=== PATIENT | male | born 1985 ===

== ENCOUNTER 2018-10-08 14:06 | Inpatient (IN) ==
[2018-10-08] MEDS ORDERED: HYDROmorphone INJ 1 MG/ML SYRINGE IV STA (14:19)
[2018-10-08] MEDS ORDERED: ONDANSETRON INJ 2 MG/ML 2 ML VIAL IV STA (14:19)
[2018-10-08] MEDS ORDERED: SODIUM CHLORIDE 0.9% 1000ML 1,000 ML IV ONE (14:19)
[2018-10-08 15:14] LABS: Hemoglobin 12.6 g/dL (14.0-18.0); Mean Corpuscular Hgb Conc 34.1 g/dL (32-36); Mean Corpuscular Volume 78.7 fL (80-100); Mean Platelet Volume 10.1 fL (7.4-10.4); Platelet Count 412 K/uL (130-400); RDW Coefficient of Variation 12.5 % (11.5-14.5); White Blood Count 10.86 K/uL (4.8-10.8)
[2018-10-08 15:30] LABS: Albumin Level 3.5 gm/dl (3.4-5.0); BUN Creatinine Ratio 22.9 (10-20); Bilirubin Direct 0.1 mg/dl (0-0.2); Calcium 8.8 mg/dl (8.5-10.1); Creatinine Clr Calc Pharmacy 129.1 ml/min; Est GFR (African American) 142.6; Potassium 2.9 mmol/L (3.5-5.1)
[2018-10-08 15:33] LABS: Basophils # (auto) 0.02 K/uL (0-0.2); Basophils % (auto) 0.2 %; Bilirubin,Total 0.6 mg/dl (0.2-1); Hypochromasia Present; Immature Granulocytes # (auto) 0.01 K/uL (0.00-0.02); Immature Granulocytes % (auto) 0.1 %; Lymphocytes # (auto) 0.57 K/uL (1.2-3.4); Lymphocytes % (auto) 5.2 %; Monocytes # (auto) 0.94 K/uL (0.11-0.59); Monocytes % (auto) 8.7 %; Neutrophils # (auto) 9.32 K/uL (1.4-6.5); Neutrophils % (auto) 85.8 %; Total Protein 7.4 gm/dl (6.4-8.2)
[2018-10-08] MEDS ORDERED: POTASSIUM CHLORIDE 10 MEQ TABCR PO STA (16:34)
[2018-10-08] MEDS ORDERED: IOVERSOL 100ml IV PRN (17:01)
--- NOTE | 2018-10-08 17:28 | CT Scan Report ---
CT OF THE ABDOMEN AND PELVIS WITH CONTRAST CLINICAL HISTORY: Abdominal pain. Diarrhea, nausea and vomiting. COMPARISON STUDY: CT of the abdomen and pelvis January 15, 2018. TECHNIQUE: Following IV administration of 94 mL of Optiray-320, axial images of the abdomen and pelvi s were obtained from the lung bases to the proximal femurs. Images were reviewed in the axial, sagitt al, and coronal planes. IV contrast was administered without complication. Automated exposure contro l was utilized for the study. A dose lowering technique was utilized adhering to the principles of A KINSEY. CT DOSE: 362.80 mGycm FINDINGS: Relative lucency/oligemia visualized portions of the left lower lobe is noted. No pneumatos is, free air or portal venous gas is present. Mild biliary ductal dilatation is unchanged and likely related to prior cholecystectomy. There is an ill-defined 2.2 cm hypodensity within segment 4 of the liver. The spleen, adrenal glands and kidneys are normal. There is no pancreatic ductal dilatation. T here is no hydronephrosis. The nephrograms are symmetric. The stomach and proximal to mid small bowel are distended and fluid-filled. Transition point is likely within the right upper quadrant. Distal s mall bowel is markedly decompressed. Soft tissue thickening within the right upper quadrant with calc ification is noted. There is also an ill-defined 3.4 cm mesenteric lesion within the right mid abdome n shown on image 212 of [id number]. There is also apparent nodularity within the pelvis anterior to the rect um which measures 2.4 cm. There is trace ascites. Major vasculature is patent. There are no suspiciou s osseous lesions. There is hyperdense material within the appendix without evidence for acute append icitis. Mild loss of height of the superior endplate of L1 is noted. Postsurgical findings within the proximal transverse colon are noted. IMPRESSION: 1. Findings consistent with a high-grade small bowel obstruction with transition point likely within the right upper quadrant. Adjacent soft tissue thickening and associated hyperdense material which ma y reflect calcification or surgical material. This may account for the bowel obstruction and raises t he possibility of malignancy. Correlation with history of malignancy is recommended given possible pe ritoneal carcinomatosis. Trace ascites. No pneumatosis, free air or portal venous gas. Placement of a nasogastric tube might be considered as well surgical consultation. 2. Ill-defined soft tissue anterior to the rectum which is worrisome for a neoplastic process such as peritoneal carcinomatosis. 3.4 cm ileocolic mass which may reflect jose metastasis. Indeterminate n ew 2.2 cm hepatic lesion. A PET/CT may be of benefit in further evaluation of these findings. Electronically signed by: Chris Ayers M.D. 10/08/2018 5:26 PM
[2018-10-08] MEDS ORDERED: POTASSIUM CHLORIDE / WTR 10 MEQ/100 ML PLCT IV STA (18:29)
[2018-10-08] MEDS ORDERED: MoRPHine SULFATE 2 MG/ML CARP IV PRN (18:36)
[2018-10-08] MEDS: POTASSIUM CHLORIDE / WTR 10 MEQ/100 ML PLCT IV SCH ×5 (19:01→23:53)
--- NOTE | 2018-10-08 19:51 | History & Physical Report ---
Date of Service October 08, 2018 Assessment & Plan (1) SBO (small bowel obstruction): (2) Colon cancer: (3) Peritoneal metastases: -admit to tele -patient presenting from home with abdominal pain, nausea, and diarrhea -developed vomiting in the ED -CT abd/pelvis showing high-grade small bowel obstruction with transition point likely within the right upper quadrant -obstruction likely due to underlying colon cancer with peritoneal mets -place NG tube to low intermittent suction -noted normal lactic acid -general surgery consult, case discussed with Dr. Hernandez -continue supportive care with IVF, PRN antiemetics and pain medicines -of note, patient follows with Dr. Josué Montalvo last chemo (Opdivo / Yervoy) on 10/06 (4) Hypokalemia: -replace, follow electrolytes (5) DVT prophylaxis: -SCDs in the event patient needs invasive procedure History of Present Illness Chief Complaint: abdominal pain, nausea Primary Care Provider: Natalie Payne 33 year old male with history of colon cancer with peritoneal metastases who presents to the ED with nausea and worsening abdominal pain. Patient reports he has chronic right sided abdominal pain which has been worsening over the past several weeks. He notes struggling with constipation over the past week. He has taken colace, Miralax, and magnesium citrate. He developed diarrhea today. No bright red bleeding per rectume or dark tarry stools. He reports minimal flatus passing. He reports last normal bowel movement was a couple of weeks ago. He developed vomiting while in the ED. No coffee ground emesis or hematemesis. He denies chest pain and shortness of breath. No lightheadedness, dizziness, diaphoresis, or syncopal events. He denies fever and chills. No urinary symptoms. In the ED, CT abd/pelvis shows a high-grade small bowel obstruction with transition point likely within the right upper quadrant. Labs show K+ 2.9. Patient was given IVF, K+ replacement, IV Zofran, and IV Dilaudid. Allergies Allergy/AdvReac Type Severity Reaction Status Date / Time asparagus Allergy Intermediate "small Verified 10/08/18 15:36 bumps on skin" Home Medications Home Medications Medication Instructions Recorded Confirmed Type ascorbic acid (vitamin C) [Vitamin 500 mg PO DAILY 10/08/18 10/08/18 History C] digestive enzymes 1 cap PO DAILY 10/08/18 10/08/18 History magnesium sulfate 100 mg PO DAILY 10/08/18 10/08/18 History melatonin 20 mg PO HS 10/08/18 10/08/18 History morphine [MS Contin] 30 mg PO BID 10/08/18 10/08/18 History multivitamin 1 tab PO DAILY 10/08/18 10/08/18 History ondansetron 8 mg PO TID PRN 10/08/18 10/08/18 History oxycodone-acetaminophen [Percocet] 1 tab PO Q4H PRN 10/08/18 10/08/18 History prochlorperazine maleate 10 mg PO Q6H PRN 10/08/18 10/08/18 History Past Med/Surg History Medical History Peritoneal metastases (Chronic) Colon cancer (Chronic) Surgical History S/P partial colectomy (Chronic) partial transverse colectomy History of cholecystectomy (Chronic) Family History Grandfather Colon cancer Uncle Colon cancer Social History marital status: Single Current Living Situation: Spouse and Family Feels Safe at Home: Yes Safety Concerns: Feels Safe At This Time Smoking Status: Never smoker Hx Alcohol Use: No Hx Substance Use: No Beliefs That Will Affect Care: None Preferred Language: Armenian Communication Ability: Effective Senior Administrative Assistant Required: No Review of Systems ROS per HPI, all other systems reviewed and negative Physical Exam 2 Vital Signs (Past 24 Hours): Last Vital Signs Temp 36.7 C 10/08/18 14:10 Pulse 119 H 10/08/18 17:43 Resp 20 10/08/18 17:43 BP 132/90 10/08/18 17:43 Pulse Ox 99 10/08/18 17:43 Constitutional: + thin vitals as above Eyes: PERRL, conjunctivae normal, anicteric sclerae ENMT: external ear and nose normal, oropharynx normal Respiratory: normal respiratory effort, lungs clear to auscultation Cardiovascular: Rate/Rhythm: regular rhythm and + tachycardic Vessels: normal peripheral pulses Extremities: no edema Gastrointestinal (Abdomen): Inspection/Auscultation: abdomen not distended ( flat) and + abnormal bowel sounds (minimal) Percussion/Palpation: + abdomen tender (right abdominal ); no hepatosplenomegaly Musculoskeletal: no cyanosis or clubbing, extremities motor strength 5/5 Skin: no rashes, warm and dry Neurologic: PERRL, EOMI, accommodation nl, no face palsy, no dysarthria Psychiatric: A+Ox3, euthymic affect Results & Data Laboratory Results Laboratory Last Values WBC 10.86 K/uL (4.8-10.8) H 10/08/18 14:50 RBC 4.70 M/uL (4.7-6.1) 10/08/18 14:50 Hgb 12.6 g/dL (14.0-18.0) L 10/08/18 14:50 Hct 37.0 % (42-52) L 10/08/18 14:50 MCV 78.7 fL (80-100) L 10/08/18 14:50 MCH 26.8 pg (25-34) 10/08/18 14:50 MCHC 34.1 g/dL (32-36) 10/08/18 14:50 RDW Std Deviation 36.0 fL (36.4-46.3) L 10/08/18 14:50 RDW Coeff of Doug 12.5 % (11.5-14.5) 10/08/18 14:50 Plt Count 412 K/uL (130-400) H 10/08/18 14:50 MPV 10.1 fL (7.4-10.4) 10/08/18 14:50 Immature Gran % (Auto) 0.1 % 10/08/18 14:50 Neut % (Auto) 85.8 % 10/08/18 14:50 Lymph % (Auto) 5.2 % 10/08/18 14:50 Winkler % (Auto) 8.7 % 10/08/18 14:50 Eos % (Auto) 0.0 % 10/08/18 14:50 Baso % (Auto) 0.2 % 10/08/18 14:50 Immature Gran # (Auto) 0.01 K/uL (0.00-0.02) 10/08/18 14:50 Neut # (Auto) 9.32 K/uL (1.4-6.5) H 10/08/18 14:50 Lymph # (Auto) 0.57 K/uL (1.2-3.4) L 10/08/18 14:50 Winkler # (Auto) 0.94 K/uL (0.11-0.59) H 10/08/18 14:50 Eos # (Auto) 0.00 K/uL (0-0.5) 10/08/18 14:50 Baso # (Auto) 0.02 K/uL (0-0.2) 10/08/18 14:50 Hypochromasia Present 10/08/18 14:50 Sodium 132 mmol/L (136-145) L 10/08/18 14:50 Potassium 2.9 mmol/L (3.5-5.1) L 10/08/18 14:50 Chloride 93 mmol/L (98-107) L 10/08/18 14:50 Carbon Dioxide 24 mmol/L (21-32) 10/08/18 14:50 Anion Gap 15.0 (3-11) H 10/08/18 14:50 BUN 16 mg/dl (7-18) 10/08/18 14:50 Creatinine 0.69 mg/dl (0.6-1.4) 10/08/18 14:50 Est Cr Clr Drug Dosing 129.1 ml/min 10/08/18 14:50 Est GFR ( Amer) 142.6 10/08/18 14:50 Est GFR (Non-Af Amer) 123.0 10/08/18 14:50 BUN/Creatinine Ratio 22.9 (10-20) H 10/08/18 14:50 Glucose 160 mg/dl (70-99) H 10/08/18 14:50 Lactate 1.5 mmol/L (0.4-2.0) 10/08/18 14:55 Calcium 8.8 mg/dl (8.5-10.1) 10/08/18 14:50 Magnesium 1.8 mg/dl (1.8-2.4) 10/08/18 14:50 Total Bilirubin 0.6 mg/dl (0.2-1) 10/08/18 14:50 Direct Bilirubin 0.1 mg/dl (0-0.2) 10/08/18 14:50 AST 35 U/L (15-37) 10/08/18 14:50 ALT 57 U/L (12-78) 10/08/18 14:50 Alkaline Phosphatase 198 U/L (45-117) H 10/08/18 14:50 Total Protein 7.4 gm/dl (6.4-8.2) 10/08/18 14:50 Albumin 3.5 gm/dl (3.4-5.0) 10/08/18 14:50 Lipase 184 U/L (73-393) 10/08/18 14:[address] ABD/PELVIS IMPRESSION: 1. Findings consistent with a high-grade small bowel obstruction with transition point likely within the right upper quadrant. Adjacent soft tissue thickening and associated hyperdense material which may reflect calcification or surgical material. This may account for the bowel obstruction and raises the possibility of malignancy. Correlation with history of malignancy is recommended given possible peritoneal carcinomatosis. Trace ascites. No pneumatosis, free air or portal venous gas. Placement of a nasogastric tube might be considered as well surgical consultation. 2. Ill-defined soft tissue anterior to the rectum which is worrisome for a neoplastic process such as peritoneal carcinomatosis. 3.4 cm ileocolic mass which may reflect jose metastasis. Indeterminate new 2.2 cm hepatic lesion. A PET/CT may be of benefit in further evaluation of these findings. Code Status & VTE Plan VTE Prophylaxis Plan VTE Prophylaxis will be ordered: Yes Supervising Physician Co-Signing Physician Notes ATTENDING ADDENDUM : this is a 33 yo unfortunate male with stage 4 /metastatic colon ca /peritoneal carcinomatosis presented with abdominal pain , nausea /vomiting CT abdomen pelvis shows high grade small bowel obstruction with transition point at Rt upper quadrant SBO secondary to malignancy bowel rest /NPO /IVF fluid NG suction if pt develops nausea /vomiting Surgery consult requested pt will be evaluated by surgery given the complicated nature of bowel obstruction along with intra abdominal malignancy -if surgery is indicated -pt will need to be [facility] with [facility] Oncology service Electrolyte derangement: Hypokalemia : K 2.9 due to GI loss had diarrhea past few weeks , presentation with SBO ordred IV K rider ( given 20 meq in ER + additional 40 meq ordered =60 meq) maintence fluid NSS +20 Kcl @ 150 check Mg and phos level DVT PROPHYLAXIS moderate to high risk /given metastatic malignancy SCD and Teds pharmacological anticoagulation avoided -possible need for abdominal surgery FULL CODE Pamela Prado MD
--- NOTE | 2018-10-08 19:56 | Emergency Department Note ---
Entered by Megan Caldwell acting as a scribe for Addison Espinoza History of Present Illness General Chief complaint: GI Assessment Stated complaint: NAUSEA, VOMITING, ABD PAIN- HX BOWEL OBSTRUCTION Time Seen by Provider: 10/08/18 14:15 Source: patient History of Present Illness Onset (ago): hour(s) (earlier today) Location: abdomen Pain Consistency: + other (worsening ) Maximum Pain Intensity: 6 Quality: + other (GI assessment) Associated symptoms: + other (Positive abdominal pain, diarrhea. Negative fevers. ) The patient is a 33 year old male who presents to the Emergency Room for a GI assessment. 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 He notes his nausea is worsening and he has associated abdominal pain located in the right upper quadrant. He denies any bilious vomiting, coffee-ground emesis, or hematemesis. Pt denies any fevers. Patient is being treated by Dr. Montalvo [facility]. 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 Pt is currently not on blood thinners. Home Medications Home Medications Medication Instructions Recorded Confirmed Type ascorbic acid (vitamin C) [Vitamin 500 mg PO DAILY 10/08/18 10/08/18 History C] digestive enzymes 1 cap PO DAILY 10/08/18 10/08/18 History magnesium sulfate 100 mg PO DAILY 10/08/18 10/08/18 History melatonin 20 mg PO HS 10/08/18 10/08/18 History morphine [MS Contin] 30 mg PO BID 10/08/18 10/08/18 History multivitamin 1 tab PO DAILY 10/08/18 10/08/18 History ondansetron 8 mg PO TID PRN 10/08/18 10/08/18 History oxycodone-acetaminophen [Percocet] 1 tab PO Q4H PRN 10/08/18 10/08/18 History prochlorperazine maleate 10 mg PO Q6H PRN 10/08/18 10/08/18 History Allergies Allergy/AdvReac Type Severity Reaction Status Date / Time asparagus Allergy Intermediate "small Verified 10/08/18 15:36 bumps on skin" Past Med/Surg History Medical History SBO (small bowel obstruction) (Acute) Colon cancer (Chronic) Family History Other Family history non-contributory Social History marital status: Single Current Living Situation: Alone Feels Safe at Home: Yes Smoking Status: Never smoker Review of Systems See HPI for pertinent positives & negatives. and A total of 10 systems reviewed and were otherwise negative Physical Exam Vital Signs Vital Signs - 24 hr 10/08/18 14:10 10/08/18 17:43 10/08/18 19:52 Temperature 36.7 C Temperature Source Oral Sepsis Recent Fever Within 48 Hours No Sepsis New/Unexplained Change in Mental Status No Sepsis Action Taken by Nursing No Action Required Pulse Rate 144 H Pulse Rate [Right Finger] 119 H 130 H Pulse Rhythm [Right Finger] Regular Pulse Strength [Right Finger] Normal Respiratory Rate 22 20 20 Respiratory Effort / Characteristics Non-Labored Spontaneous Respiratory Depth Normal Respiratory Pattern Regular Blood Pressure 113/72 Blood Pressure [Right Arm] 132/90 123/77 Blood Pressure Mean 85 Blood Pressure Mean [Right Arm] 104 92 Blood Pressure Position [Right Arm] Lying Pulse Oximetry 99 99 99 Oxygen Delivery Method Room Air Room Air Room Air GENERAL: He is oriented to person, place, and time. He appears well-developed and well-nourished. He appears distressed. ____ HENT: Exam performed. Head: Normocephalic and atraumatic. Right Ear: External ear normal. No mastoid tenderness. Left Ear: External ear normal. No mastoid tenderness. Mouth/Throat: The oropharynx is clear and moist. No trismus in the jaw. No dental abscesses or uvula swelling. No oropharyngeal exudate or tonsillar abscesses. ____ EYES: Conjunctivae and EOM are normal. Pupils are equal, round, and reactive to light. Right eye exhibits no discharge. Left eye exhibits no discharge. No scleral icterus. ____ NECK: Normal range of motion. Neck supple. No JVD present. No spinous process tenderness present. No carotid bruit present. No rigidity. No tracheal deviation and normal range of motion present. No Brudzinski's sign and no Kernig 's sign noted. ____ CV: Tachycardic rate, regular rhythm, normal heart sounds and intact distal pulses. There is no peripheral edema. Palpable radial pulses bue. ____ PULM/CHEST: Effort normal and breath sounds normal. No respiratory distress. No stridor. He has no wheezes. He has no rales. Chest Wall: He exhibits no tenderness. ____ ABD: The abdomen is soft. Bowel sounds are normal. He has no distension. No mass is present. Diffse pain on palpation of the abdomen. There is no rebound, no guarding, no Goodman's sign and no tenderness at McBurney's point. Rovsig negative MUSC/SKEL: Normal range of motion. There is no peripheral edema, tenderness or deformity. LYMPH: No cervical adenopathy. ____ NEURO: He is alert and oriented to person, place, and time. He has normal strength. No cranial nerve deficit or sensory deficit. Coordination and gait normal. GCS eye subscore is 4. GCS verbal subscore is 5. GCS motor subscore is 6. cerbellar tests wnl. ____ SKIN: Skin is warm and dry. He is not diaphoretic. ____Skin is pale. PSYCH: He has a normal mood and affect. His behavior is normal. Judgment and thought content normal. ____ Course 1416: Past medical records reviewed. The patient was evaluated in room B7, and a complete history and physical examination were performed. 1619: He states his abdominal pain status post dilaudid is significantly improved. 1745: Vital signs stable. Potassium is low at 2.9. Replaced in the emergency department. CT of the abdomen shows high-grade small bowel obstruction. I reviewed the patient's case with CORAL Leyva [facility] Hospitalist. The patient will be further evaluated by Dr. Prado [facility] Hospitalist. Natalya almanzar as that general surgery be on consult when he is admitted to their service. 1754: I reviewed the patient's case with Dr. Hernandez, General Surgery agreed to be on consult. Consultations Consultation #1: I reviewed the patient's case with CORAL Leyva [facility] Hospitalist. The patient will be further evaluated by Dr. Prado [facility] Hospitalist. Time: 17:45 Consultation #2: I reviewed the patient's case with Dr. Hernandez, General Surgery agreed to be on consult. Time: 17:54 Administered Medications Potassium Chloride (K Odell / Wtr) 10 meq in 100 mls @ 100 mls/hr IV Q1H GURPREET Stop: 10/08/18 19:59 Last Admin: 10/08/18 19:40 Dose: 100 mls/hr Infusion: 10/08/18 19:40 Dose: 100 mls/hr Admin: 10/08/18 19:01 Dose: 100 mls/hr Ioversol (Optiray 320 100ml) 94 ml IV ONCE PRN PRN Reason: Interaction Checking Stop: 10/12/18 17:00 Last Admin: 10/08/18 17:01 Dose: 94 ml Morphine Sulfate (Morphine Sulfate) 2 mg IV Q3H PRN PRN Reason: Pain Stop: 10/22/18 18:35 Last Admin: 10/08/18 19:35 Dose: 2 mg Discontinued Medications Hydromorphone HCl (Dilaudid) 1 mg IV NOW STA Stop: 10/08/18 14:20 Last Admin: 10/08/18 14:55 Dose: 1 mg Sodium Chloride (Nss 1000ml) 1,000 mls @ 999 mls/hr IV .Q1H1M ONE Stop: 10/08/18 15:19 Last Infusion: 10/08/18 16:24 Dose: 0 mls/hr Admin: 10/08/18 14:55 Dose: 999 mls/hr Ondansetron HCl (Zofran) 4 mg IV NOW STA Stop: 10/08/18 14:20 Last Admin: 10/08/18 14:50 Dose: 4 mg Potassium Chloride (Klor-Con M10) 40 meq PO NOW STA Stop: 10/08/18 16:35 Last Admin: 10/08/18 17:17 Dose: 40 meq Medical Decision Making Medical Records Attestation: I reviewed the patient's medical records. Home Medications Current Medication List: was personally reviewed by me Laboratory Data Attestation: I reviewed the patient's lab results. Result diagrams: 10/08/18 14:50 10/08/18 14:50 Lab Results 10/08/18 10/08/18 10/08/18 Range/Units 14:50 14:50 14:50 WBC 10.86 H (4.8-10.8) K/uL RBC 4.70 (4.7-6.1) M/uL Hgb 12.6 L (14.0-18.0) g/dL Hct 37.0 L (42-52) % MCV 78.7 L (80-100) fL MCH 26.8 (25-34) pg MCHC 34.1 (32-36) g/dL RDW Std Deviation 36.0 L (36.4-46.3) fL RDW Coeff of Doug 12.5 (11.5-14.5) % Plt Count 412 H (130-400) K/uL MPV 10.1 (7.4-10.4) fL Immature Gran % (Auto) 0.1 % Neut % (Auto) 85.8 % Lymph % (Auto) 5.2 % Moody % (Auto) 8.7 % Eos % (Auto) 0.0 % Baso % (Auto) 0.2 % Immature Gran # (Auto) 0.01 (0.00-0.02) K/uL Neut # (Auto) 9.32 H (1.4-6.5) K/uL Lymph # (Auto) 0.57 L (1.2-3.4) K/uL Moody # (Auto) 0.94 H (0.11-0.59) K/uL Eos # (Auto) 0.00 (0-0.5) K/uL Baso # (Auto) 0.02 (0-0.2) K/uL Hypochromasia Present Sodium 132 L (136-145) mmol/L Potassium 2.9 L (3.5-5.1) mmol/L Chloride 93 L (98-107) mmol/L Carbon Dioxide 24 (21-32) mmol/L Anion Gap 15.0 H (3-11) BUN 16 (7-18) mg/dl Creatinine 0.69 (0.6-1.4) mg/dl Est Cr Clr Drug Dosing 129.1 ml/min Est GFR ( Amer) 142.6 Est GFR (Non-Af Amer) 123.0 BUN/Creatinine Ratio 22.9 H (10-20) Glucose 160 H (70-99) mg/dl Lactate (0.4-2.0) mmol/L Calcium 8.8 (8.5-10.1) mg/dl Magnesium 1.8 (1.8-2.4) mg/dl Total Bilirubin 0.6 (0.2-1) mg/dl Direct Bilirubin 0.1 (0-0.2) mg/dl AST 35 (15-37) U/L ALT 57 (12-78) U/L Alkaline Phosphatase 198 H (45-117) U/L Total Protein 7.4 (6.4-8.2) gm/dl Albumin 3.5 (3.4-5.0) gm/dl Lipase 184 (73-393) U/L 10/08/18 Range/Units 14:55 WBC (4.8-10.8) K/uL RBC (4.7-6.1) M/uL Hgb (14.0-18.0) g/dL Hct (42-52) % MCV (80-100) fL MCH (25-34) pg MCHC (32-36) g/dL RDW Std Deviation (36.4-46.3) fL RDW Coeff of Doug (11.5-14.5) % Plt Count (130-400) K/uL MPV (7.4-10.4) fL Immature Gran % (Auto) % Neut % (Auto) % Lymph % (Auto) % Moody % (Auto) % Eos % (Auto) % Baso % (Auto) % Immature Gran # (Auto) (0.00-0.02) K/uL Neut # (Auto) (1.4-6.5) K/uL Lymph # (Auto) (1.2-3.4) K/uL Moody # (Auto) (0.11-0.59) K/uL Eos # (Auto) (0-0.5) K/uL Baso # (Auto) (0-0.2) K/uL Hypochromasia Sodium (136-145) mmol/L Potassium (3.5-5.1) mmol/L Chloride (98-107) mmol/L Carbon Dioxide (21-32) mmol/L Anion Gap (3-11) BUN (7-18) mg/dl Creatinine (0.6-1.4) mg/dl Est Cr Clr Drug Dosing ml/min Est GFR ( Amer) Est GFR (Non-Af Amer) BUN/Creatinine Ratio (10-20) Glucose (70-99) mg/dl Lactate 1.5 (0.4-2.0) mmol/L Calcium (8.5-10.1) mg/dl Magnesium (1.8-2.4) mg/dl Total Bilirubin (0.2-1) mg/dl Direct Bilirubin (0-0.2) mg/dl AST (15-37) U/L ALT (12-78) U/L Alkaline Phosphatase (45-117) U/L Total Protein (6.4-8.2) gm/dl Albumin (3.4-5.0) gm/dl Lipase (73-393) U/L Imaging Data Radiologist's Impression: Radiology results as stated below per my review and the radiologist's interpretation: CT OF THE ABDOMEN AND PELVIS WITH CONTRAST CLINICAL HISTORY: Abdominal pain. Diarrhea, nausea and vomiting. COMPARISON STUDY: CT of the abdomen and pelvis January 15, 2018. TECHNIQUE: Following IV administration of 94 mL of Optiray-320, axial images of the abdomen and pelvis were obtained from the lung bases to the proximal femurs. Images were reviewed in the axial, sagittal, and coronal planes. IV contrast was administered without complication. Automated exposure control was utilized for the study. A dose lowering technique was utilized adhering to the principles of ALARA. CT DOSE: 362.80 mGycm FINDINGS: Relative lucency/oligemia visualized portions of the left lower lobe is noted. No pneumatosis, free air or portal venous gas is present. Mild biliary ductal dilatation is unchanged and likely related to prior cholecystectomy. There is an ill-defined 2.2 cm hypodensity within segment 4 of the liver. The spleen, adrenal glands and kidneys are normal. There is no pancreatic ductal dilatation. There is no hydronephrosis. The nephrograms are symmetric. The stomach and proximal to mid small bowel are distended and fluid- filled. Transition point is likely within the right upper quadrant. Distal small bowel is markedly decompressed. Soft tissue thickening within the right upper quadrant with calcification is noted. There is also an ill-defined 3.4 cm mesenteric lesion within the right mid abdomen shown on image 212 of 466. There is also apparent nodularity within the pelvis anterior to the rectum which measures 2.4 cm. There is trace ascites. Major vasculature is patent. There are no suspicious osseous lesions. There is hyperdense material within the appendix without evidence for acute appendicitis. Mild loss of height of the superior endplate of L1 is noted. Postsurgical findings within the proximal transverse colon are noted. IMPRESSION: 1. Findings consistent with a high-grade small bowel obstruction with transition point likely within the right upper quadrant. Adjacent soft tissue thickening and associated hyperdense material which may reflect calcification or surgical material. This may account for the bowel obstruction and raises the possibility of malignancy. Correlation with history of malignancy is recommended given possible peritoneal carcinomatosis. Trace ascites. No pneumatosis, free air or portal venous gas. Placement of a nasogastric tube might be considered as well surgical consultation. 2. Ill-defined soft tissue anterior to the rectum which is worrisome for a neoplastic process such as peritoneal carcinomatosis. 3.4 cm ileocolic mass which may reflect jose metastasis. Indeterminate new 2.2 cm hepatic lesion. A PET/CT may be of benefit in further evaluation of these findings. Electronically signed by: Chris Ayers M.D. 10/08/2018 5:26 PM ECG Data Attestation: I personally reviewed and interpreted this ECG as follows: Indication: abdominal pain Rate (beats per minute): 133 Rhythm: sinus tachycardia Findings: + other (NV, QTS, and QTC wnl); no ST depression and no ST elevation Blood Pressure Blood Pressure Findings: Normal blood pressure Blood Pressure Disposition: did not require urgent referral MDM Narrative 1416: Past medical records reviewed. The patient was evaluated in room B7, and a complete history and physical examination were performed. 1619: He states his abdominal pain status post dilaudid is significantly improved. 1745: Vital signs stable. Potassium is low at 2.9. Replaced in the emergency department. CT of the abdomen shows high-grade small bowel obstruction. I reviewed the patient's case with CORAL Leyva [facility] Hospitalist. The patient will be further evaluated by Dr. Prado, [facility] Hospitalist. Natalya almanzar as that general surgery be on consult when he is admitted to their service. 1754: I reviewed the patient's case with Dr. Hernandez, General Surgery agreed to be on consult. Impression & Plan SBO (small bowel obstruction) Discharge Plan Visit Data Chief Complaint: GI Assessment Stated Complaint: NAUSEA, VOMITING, ABD PAIN- HX BOWEL OBSTRUCTION ED Provider: Addison Espinoza Discharge Problem: SBO (small bowel obstruction) Patient Disposition: Being Evaluated by Hospitalist The scribe's documentation has been prepared under my direction and personally reviewed by me in its entirety. I confirm that the note above accurately reflects all work, treatment, procedures, and medical decision making performed by me.
--- NOTE | 2018-10-08 20:01 | Surgery Consultation ---
Date of Consultation October 08, 2018 Assessment & Plan (1) SBO (small bowel obstruction): This patient has a small bowel obstruction and by CT scan it is suspicious that it is involved with 1 of his intra-abdominal metastasis. I would still consider conservative measures at first. He continues to have nausea and if he vomits again then I would place an NG tube. There is no evidence of peritonitis. Will need to continue to monitor with serial exams and make further decisions as time progresses. History of Present Illness Reason for Consultation: SBO Requesting Physician: CORAL Leyva Attending Physician: Pamela Prado MD History of Present Illness I have been asked by CORAL Leyva to see this 33-year-old male who has a known history of colon cancer that was resected in December 2017. 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 There is also liver metastasis. He has chronic abdominal pain especially to the right of the incision. He developed nausea yesterday and early today. He vomited one time and had some dry heaves as well. The nausea was new. The abdominal pain has not changed. He has not been passing gas. He had some liquid bowel movements but has not had any today. He underwent a CT scan of the abdomen and pelvis that showed evidence of a bowel obstruction associated with an intra-abdominal mass towards the right upper quadrant. Allergies Allergy/AdvReac Type Severity Reaction Status Date / Time asparagus Allergy Intermediate "small Verified 10/08/18 15:36 bumps on skin" Home Medications Home Medications Medication Instructions Recorded Confirmed Type ascorbic acid (vitamin C) [Vitamin 500 mg PO DAILY 10/08/18 10/08/18 History C] digestive enzymes 1 cap PO DAILY 10/08/18 10/08/18 History magnesium sulfate 100 mg PO DAILY 10/08/18 10/08/18 History melatonin 20 mg PO HS 10/08/18 10/08/18 History morphine [MS Contin] 30 mg PO BID 10/08/18 10/08/18 History multivitamin 1 tab PO DAILY 10/08/18 10/08/18 History ondansetron 8 mg PO TID PRN 10/08/18 10/08/18 History oxycodone-acetaminophen [Percocet] 1 tab PO Q4H PRN 10/08/18 10/08/18 History prochlorperazine maleate 10 mg PO Q6H PRN 10/08/18 10/08/18 History Patient History Medical History Peritoneal metastases (Chronic) Colon cancer (Chronic) Surgical History S/P partial colectomy (Chronic) partial transverse colectomy History of cholecystectomy (Chronic) Family History Grandfather Colon cancer Uncle Colon cancer Social History marital status: Single Current Living Situation: Alone Feels Safe at Home: Yes Smoking Status: Never smoker Hx Alcohol Use: Yes Alcohol Intake Frequency: holidays/special occasions only Physical Exam 2 Vital Signs (Past 24 Hours): Last Vital Signs Temp 36.7 C 10/08/18 14:10 Pulse 130 H 10/08/18 19:52 Resp 20 10/08/18 19:52 BP 123/77 10/08/18 19:52 Pulse Ox 99 10/08/18 19:52 Constitutional: + cachectic; no acute distress Respiratory: normal respiratory effort, lungs clear to auscultation Cardiovascular: Rate/Rhythm: regular rate and regular rhythm Gastrointestinal (Abdomen): Inspection/Auscultation: + hypoactive bowel sounds ; abdomen not distended Percussion/Palpation: + abdomen tender (To the right of the incision that the patient states he has had for many months and is unchanged) and abdomen soft; no splenomegaly Skin: no rashes, warm and dry Lymphatic: no cervical lymphadenopathy Results & Data Laboratory Results 10/08/18 10/08/18 10/08/18 Range/Units 14:55 14:50 14:50 WBC (4.8-10.8) K/uL RBC (4.7-6.1) M/uL Hgb (14.0-18.0) g/dL Hct (42-52) % MCV (80-100) fL MCH (25-34) pg MCHC (32-36) g/dL RDW Std Deviation (36.4-46.3) fL RDW Coeff of Doug (11.5-14.5) % Plt Count (130-400) K/uL MPV (7.4-10.4) fL Immature Gran % (Auto) % Neut % (Auto) % Lymph % (Auto) % Sibley % (Auto) % Eos % (Auto) % Baso % (Auto) % Immature Gran # (Auto) (0.00-0.02) K/uL Neut # (Auto) (1.4-6.5) K/uL Lymph # (Auto) (1.2-3.4) K/uL Sibley # (Auto) (0.11-0.59) K/uL Eos # (Auto) (0-0.5) K/uL Baso # (Auto) (0-0.2) K/uL Hypochromasia Sodium 132 L (136-145) mmol/L Potassium 2.9 L (3.5-5.1) mmol/L Chloride 93 L (98-107) mmol/L Carbon Dioxide 24 (21-32) mmol/L Anion Gap 15.0 H (3-11) BUN 16 (7-18) mg/dl Creatinine 0.69 (0.6-1.4) mg/dl Est Cr Clr Drug Dosing 129.1 ml/min Est GFR ( Amer) 142.6 Est GFR (Non-Af Amer) 123.0 BUN/Creatinine Ratio 22.9 H (10-20) Glucose 160 H (70-99) mg/dl Lactate 1.5 (0.4-2.0) mmol/L Calcium 8.8 (8.5-10.1) mg/dl Magnesium 1.8 (1.8-2.4) mg/dl Total Bilirubin 0.6 (0.2-1) mg/dl Direct Bilirubin 0.1 (0-0.2) mg/dl AST 35 (15-37) U/L ALT 57 (12-78) U/L Alkaline Phosphatase 198 H (45-117) U/L Total Protein 7.4 (6.4-8.2) gm/dl Albumin 3.5 (3.4-5.0) gm/dl Lipase 184 (73-393) U/L 10/08/18 Range/Units 14:50 WBC 10.86 H (4.8-10.8) K/uL RBC 4.70 (4.7-6.1) M/uL Hgb 12.6 L (14.0-18.0) g/dL Hct 37.0 L (42-52) % MCV 78.7 L (80-100) fL MCH 26.8 (25-34) pg MCHC 34.1 (32-36) g/dL RDW Std Deviation 36.0 L (36.4-46.3) fL RDW Coeff of Doug 12.5 (11.5-14.5) % Plt Count 412 H (130-400) K/uL MPV 10.1 (7.4-10.4) fL Immature Gran % (Auto) 0.1 % Neut % (Auto) 85.8 % Lymph % (Auto) 5.2 % Sibley % (Auto) 8.7 % Eos % (Auto) 0.0 % Baso % (Auto) 0.2 % Immature Gran # (Auto) 0.01 (0.00-0.02) K/uL Neut # (Auto) 9.32 H (1.4-6.5) K/uL Lymph # (Auto) 0.57 L (1.2-3.4) K/uL Sibley # (Auto) 0.94 H (0.11-0.59) K/uL Eos # (Auto) 0.00 (0-0.5) K/uL Baso # (Auto) 0.02 (0-0.2) K/uL Hypochromasia Present Sodium (136-145) mmol/L Potassium (3.5-5.1) mmol/L Chloride (98-107) mmol/L Carbon Dioxide (21-32) mmol/L Anion Gap (3-11) BUN (7-18) mg/dl Creatinine (0.6-1.4) mg/dl Est Cr Clr Drug Dosing ml/min Est GFR ( Amer) Est GFR (Non-Af Amer) BUN/Creatinine Ratio (10-20) Glucose (70-99) mg/dl Lactate (0.4-2.0) mmol/L Calcium (8.5-10.1) mg/dl Magnesium (1.8-2.4) mg/dl Total Bilirubin (0.2-1) mg/dl Direct Bilirubin (0-0.2) mg/dl AST (15-37) U/L ALT (12-78) U/L Alkaline Phosphatase (45-117) U/L Total Protein (6.4-8.2) gm/dl Albumin (3.4-5.0) gm/dl Lipase (73-393) U/L Diagnostic Findings CT OF THE ABDOMEN AND PELVIS WITH CONTRAST CLINICAL HISTORY: Abdominal pain. Diarrhea, nausea and vomiting. COMPARISON STUDY: CT of the abdomen and pelvis January 15, 2018. TECHNIQUE: Following IV administration of 94 mL of Optiray-320, axial images of the abdomen and pelvis were obtained from the lung bases to the proximal femurs. Images were reviewed in the axial, sagittal, and coronal planes. IV contrast was administered without complication. Automated exposure control was utilized for the study. A dose lowering technique was utilized adhering to the principles of ALARA. CT DOSE: 362.80 mGycm FINDINGS: Relative lucency/oligemia visualized portions of the left lower lobe is noted. No pneumatosis, free air or portal venous gas is present. Mild biliary ductal dilatation is unchanged and likely related to prior cholecystectomy. There is an ill-defined 2.2 cm hypodensity within segment 4 of the liver. The spleen, adrenal glands and kidneys are normal. There is no pancreatic ductal dilatation. There is no hydronephrosis. The nephrograms are symmetric. The stomach and proximal to mid small bowel are distended and fluid- filled. Transition point is likely within the right upper quadrant. Distal small bowel is markedly decompressed. Soft tissue thickening within the right upper quadrant with calcification is noted. There is also an ill-defined 3.4 cm mesenteric lesion within the right mid abdomen shown on image 212 of 466. There is also apparent nodularity within the pelvis anterior to the rectum which measures 2.4 cm. There is trace ascites. Major vasculature is patent. There are no suspicious osseous lesions. There is hyperdense material within the appendix without evidence for acute appendicitis. Mild loss of height of the superior endplate of L1 is noted. Postsurgical findings within the proximal transverse colon are noted. IMPRESSION: 1. Findings consistent with a high-grade small bowel obstruction with transition point likely within the right upper quadrant. Adjacent soft tissue thickening and associated hyperdense material which may reflect calcification or surgical material. This may account for the bowel obstruction and raises the possibility of malignancy. Correlation with history of malignancy is recommended given possible peritoneal carcinomatosis. Trace ascites. No pneumatosis, free air or portal venous gas. Placement of a nasogastric tube might be considered as well surgical consultation. 2. Ill-defined soft tissue anterior to the rectum which is worrisome for a neoplastic process such as peritoneal carcinomatosis. 3.4 cm ileocolic mass which may reflect jose metastasis. Indeterminate new 2.2 cm hepatic lesion. A PET/CT may be of benefit in further evaluation of these findings.
[2018-10-08] MEDS ORDERED: MoRPHine SULFATE 4 MG/ML 1 ML CARP\\VIAL IV PRN (20:28)
[2018-10-08] MEDS: PROMETHAZINE HCL 12.5 MG in SODIUM CHLORIDE 0.9% 50 ML IV PRN (21:24)
[2018-10-08] MEDS: NSS + 20MEQ KCL 20 MEQ/1,000 ML BAG IV SCH (21:24)
[2018-10-08] MEDS: ACETAMINOPHEN 1000 MG/100 ML IV IV SCH (21:34)
[2018-10-08] MEDS: PANTOprazole 40 MG in SYRINGE 0 ML IV SCH (21:49)
[2018-10-08 22:29] LABS: BUN Creatinine Ratio 23.9 (10-20); Blood Urea Nitrogen 14 mg/dl (7-18); Carbon Dioxide 27 mmol/L (21-32); Chloride 99 mmol/L (98-107); Creatinine Clr Calc Pharmacy 146.6 ml/min; Est GFR (African American) > 150.0; Est GFR (Non-African American) 130.3; Glucose 108 mg/dl (70-99); Magnesium 1.8 mg/dl (1.8-2.4); Potassium 4.1 mmol/L (3.5-5.1); Sodium 134 mmol/L (136-145)
[2018-10-09] MEDS: HYDROmorphone INJ 1 MG/ML SYRINGE IV PRN ×7 (00:51→17:35)
[2018-10-09] MEDS: NSS + 20MEQ KCL 20 MEQ/1,000 ML BAG IV SCH (04:11)
[2018-10-09 04:17] LABS: Appearance Urine Clear (Clear); Bilirubin Urine Negative (Negative); Blood Urine Negative (Negative); Color Urine Yellow; Glucose Urine UA Negative (Negative); Leukocyte Esterase Urine Negative (Negative); Nitrite Urine Negative (Negative); Protein Urine Negative (Negative); Specific Gravity Urine > 1.045 (1.000-1.030); Urobilinogen Urine Negative (Negative)
[2018-10-09 04:27] LABS: Ketones Urine 4+ (Negative)
[2018-10-09] MEDS: ACETAMINOPHEN 1000 MG/100 ML IV IV SCH ×3 (05:55→22:10)
[2018-10-09 06:31] LABS: BUN Creatinine Ratio 20.1 (10-20); Blood Urea Nitrogen 11 mg/dl (7-18); Calcium 7.8 mg/dl (8.5-10.1); Carbon Dioxide 23 mmol/L (21-32); Chloride 106 mmol/L (98-107); Creatinine Clr Calc Pharmacy 165.9 ml/min; Est GFR (African American) > 150.0; Est GFR (Non-African American) 137.1; Glucose 86 mg/dl (70-99); Magnesium 1.8 mg/dl (1.8-2.4); Sodium 136 mmol/L (136-145)
[2018-10-09] MEDS: PANTOprazole 40 MG in SYRINGE 0 ML IV SCH (07:31)
--- NOTE | 2018-10-09 08:29 | XRay Report ---
XR abdomen min 2V CLINICAL HISTORY: SBO COMPARISON STUDY: 01/24/2018 FINDINGS: There is a nasogastric tube within the stomach. There are surgical clips in the right upper quadrant. There is a right upper quadrant suture line. The right-sided surgical drain is been remove d. There is contrast within the lateral. There is no pathologic bowel dilatation. IMPRESSION: No evidence of pathologic bowel dilatation. Electronically signed by: Gopal Bullock M.D. 10/09/2018 8:28 AM
[2018-10-09] MEDS: NORMOSOL-R 1,000 ML IV SCH ×2 (09:59→17:35)
--- NOTE | 2018-10-09 13:14 | Hospitalist Progress Note ---
Date of Service October 09, 2018 Assessment & Plan (1) SBO (small bowel obstruction): Presented with high-grade small bowel obstruction: History of colon cancer stage IV, status post transverse colon resection, peritoneal carcinomatosis CT abdomen pelvis IMPRESSION: 1. Findings consistent with a high-grade small bowel obstruction with transition point likely within the right upper quadrant. Adjacent soft tissue thickening and associated hyperdense material which may reflect calcification or surgical material. This may account for the bowel obstruction and raises the possibility of malignancy. Correlation with history of malignancy is recommended given possible peritoneal carcinomatosis. Trace ascites. No pneumatosis, free air or portal venous gas. Placement of a nasogastric tube might be considered as well surgical consultation. 2. Ill-defined soft tissue anterior to the rectum which is worrisome for a neoplastic process such as peritoneal carcinomatosis. 3.4 cm ileocolic mass which may reflect jose metastasis. Indeterminate new 2.2 cm hepatic lesion. A PET/CT may be of benefit in further evaluation of these findings. Patient was started on NG suction, bowel rest/n.p.o., IV fluids Initially ordered for as needed IV morphine, changed to IV Dilaudid his pain was not controlled with morphine only Surgery consulted, appreciate input Recommend conservative approach, In the event of worsening clinical status regarding surgical intervention, patient is to be transferred to tertiary care with surgery oncology service Patient remained stable remained stable overnight X-ray of abdomen: This morning shows no pathologically dilated x-ray findings discussed with loops of bowel X-ray findings discussed with radiology: Dr. Ayers Given the limitation of abdomen x-ray, very hard to assess resolution of high- grade small bowel obstruction -Improvement of bowel dilatation, decompression noted, possibly secondary to ongoing NG suction Keep patient n.p.o., NG suction, pain control Monitor in telemetry for sinus tachycardia: Possibly secondary to pain versus dehydration Increased IV fluid rate to 150 (2) Colon cancer: Metastatic colon cancer stage IV, with peritoneal carcinomatosis status post colon resection surgery in [facility] on palliative chemo with Dr. Montalvo Presents with small bowel obstruction, possibly secondary to colonic mass (3) Peritoneal metastases: Overall poor prognosis, conservative approach For small bowel obstruction, Continue IV fluids, pain control (4) S/P partial colectomy: Due to metastatic colon cancer, status post transverse colon resection presents with small bowel obstruction : Related to colon malignancy For any indication for surgical intervention, patient will need to be transferred to tertiary care Present on Admission?: Yes (5) Hypokalemia: Due to ongoing GI loss replaced Present on Admission?: Yes (6) DVT prophylaxis: SCD and teds pharmacological anticoagulation avoided: As patient may need surgical intervention CODE STATUS: Full code Plan of care discussed with patient and patient's present at bedside Subjective Continue to have NG suction with bilious drainage Complaints of 8 /10 pain on the right upper quadrant, able to pass gas, no bowel movement yet Getting pain relief reduces to 45 with IV Dilaudid as needed Physical Exam 2 Vital Signs (Past 24 Hours): Last Vital Signs Temp 36.6 C 10/09/18 12:03 Pulse 116 H 10/09/18 12:03 Resp 16 10/09/18 12:03 BP 137/86 10/09/18 12:03 Pulse Ox 99 10/09/18 12:03 Constitutional: + ill appearing, + cachectic and + in distress (Due to abdominal pain mostly localized to right upper quadrant) Eyes: PERRL, conjunctivae normal, anicteric sclerae ENMT: Mouth: + dry oral mucous membranes (NG tube present, draining dark bilious gastric drainage) Respiratory: normal respiratory effort, lungs clear to auscultation Cardiovascular: Rate/Rhythm: regular rate and + tachycardic (Sinus tachycardia heart rate in the 110s) Gastrointestinal (Abdomen): Inspection/Auscultation: + hypoactive bowel sounds Percussion/Palpation: + abdomen tender (Right upper quadrant, with positive rebound) and + abdomen firm Musculoskeletal: no cyanosis or clubbing, extremities motor strength 5/5 Skin: no rashes, warm and dry Neurologic: PERRL, EOMI, accommodation nl, no face palsy, no dysarthria Psychiatric: Orientation: alert and oriented x 3 Eye Contact: good eye contact Affect: + depressed affect
--- NOTE | 2018-10-09 16:06 | Surgery Progress Note ---
Date of Service October 09, 2018 Assessment & Plan (1) SBO (small bowel obstruction): secondary to intra-abdominal carcinomatosis Colon cancer stage IV, s/p transverse colectomy 12/2017 currently on immunotherapy Vitals stable Passing small amount of flatus, no bowel movement NGT with 3 liters clear bilious output since placement Plan: continue conservative measures at this time: NPO, NGT to LIS, IV Fluids, IV Dialudid prn pain, Zofran prn nausea if does not significantly improved with conservative measures may require surgical exploration in which a tertiary center would be recommended given his intra-abdominal carcinomatosis. repeat am labs OOB to chair ambulate SCDs for DVT prophylaxis continue medical management Dr. Hernandez has seen and examined pt, agrees with above. Subjective feeling slightly better small amount of gas but no bowel movement still having moderate right upper abdominal pain Physical Exam 2 Vital Signs (Past 24 Hours): Last Vital Signs Temp 36.5 C 10/09/18 15:35 Pulse 105 H 10/09/18 15:35 Resp 18 10/09/18 15:35 BP 125/80 10/09/18 15:35 Pulse Ox 97 10/09/18 15:35 Constitutional: WD/WN, vitals as above + thin; no acute distress Respiratory: normal respiratory effort; no respiratory distress Gastrointestinal (Abdomen): Inspection/Auscultation: abdomen normal to inspection; abdomen not distended Percussion/Palpation: + abdomen tender (RUQ ); no guarding and abdomen not rigid NGT present: bilious output Skin: no rashes, warm and dry Psychiatric: A+Ox3, euthymic affect Results & Data Laboratory Results 10/09/18 10/09/18 10/08/18 Range/Units 05:51 04:00 21:47 Sodium 136 134 L (136-145) mmol/L Potassium 4.0 4.1 D (3.5-5.1) mmol/L Chloride 106 99 (98-107) mmol/L Carbon Dioxide 23 27 (21-32) mmol/L Anion Gap 7.0 8.0 (3-11) BUN 11 14 (7-18) mg/dl Creatinine 0.53 L 0.60 (0.6-1.4) mg/dl Est Cr Clr Drug Dosing 165.9 146.6 ml/min Est GFR ( Amer) > 150.0 > 150.0 Est GFR (Non-Af Amer) 137.1 130.3 BUN/Creatinine Ratio 20.1 H 23.9 H (10-20) Glucose 86 108 H (70-99) mg/dl Calcium 7.8 L 8.0 L (8.5-10.1) mg/dl Phosphorus 3.0 (2.5-4.9) mg/dl Magnesium 1.8 1.8 (1.8-2.4) mg/dl Urine Color Yellow Urine Appearance Clear (Clear) Urine pH 6.0 (4.5-7.5) Ur Specific [place] > 1.045 H (1.000-1.030) Urine Protein Negative (Negative) Urine Glucose (UA) Negative (Negative) Urine Ketones 4+ H (Negative) Urine Blood Negative (Negative) Urine Nitrite Negative (Negative) Urine Bilirubin Negative (Negative) Urine Urobilinogen Negative (Negative) Ur Leukocyte Esterase Negative (Negative) 10/08/18 Range/Units 14:50 Sodium (136-145) mmol/L Potassium (3.5-5.1) mmol/L Chloride (98-107) mmol/L Carbon Dioxide (21-32) mmol/L Anion Gap (3-11) BUN (7-18) mg/dl Creatinine (0.6-1.4) mg/dl Est Cr Clr Drug Dosing ml/min Est GFR ( Amer) Est GFR (Non-Af Amer) BUN/Creatinine Ratio (10-20) Glucose (70-99) mg/dl Calcium (8.5-10.1) mg/dl Phosphorus (2.5-4.9) mg/dl Magnesium 1.8 (1.8-2.4) mg/dl Urine Color Urine Appearance (Clear) Urine pH (4.5-7.5) Ur Specific [place] (1.000-1.030) Urine Protein (Negative) Urine Glucose (UA) (Negative) Urine Ketones (Negative) Urine Blood (Negative) Urine Nitrite (Negative) Urine Bilirubin (Negative) Urine Urobilinogen (Negative) Ur Leukocyte Esterase (Negative)
[2018-10-09] MEDS ORDERED: NALOXONE HCL 0.4 MG/1 ML VIAL/CARP IV PRN (17:58)
[2018-10-09] MEDS ORDERED: HYDROmorphone INJ 2 MG/ML SYR/VIAL IV STA (18:02)
[2018-10-09] MEDS: HYDROmorphone HCL 0.5MG/ML 50 ML CASSETTE IV PRN (18:40)
[2018-10-09] MEDS: SODIUM CHLORIDE 0.9% 1000ML 1,000 ML IV SCH (18:40)
[2018-10-10] MEDS: NORMOSOL-R 1,000 ML IV SCH ×3 (00:23→12:35)
[2018-10-10] MEDS ORDERED: CHLORASEPTIC 1.4% SOLN 180 ML BTL MT PRN (03:01)
[2018-10-10] MEDS ORDERED: COUGH DROP (SUGAR FREE) LOZ 24 LOZ/1 BOX BUCCAL PRN (04:50)
[2018-10-10] MEDS: ACETAMINOPHEN 1000 MG/100 ML IV IV SCH ×3 (05:46→22:07)
[2018-10-10 06:20] LABS: Blood Urea Nitrogen 8 mg/dl (7-18); Carbon Dioxide 24 mmol/L (21-32); Chloride 103 mmol/L (98-107); Potassium 3.7 mmol/L (3.5-5.1); Sodium 135 mmol/L (136-145)
[2018-10-10 06:21] LABS: BUN Creatinine Ratio 15.2 (10-20); Calcium 7.7 mg/dl (8.5-10.1); Est GFR (African American) > 150.0; Est GFR (Non-African American) 141.6; Glucose 76 mg/dl (70-99); Magnesium 1.8 mg/dl (1.8-2.4)
[2018-10-10] MEDS: PANTOprazole 40 MG in SYRINGE 0 ML IV SCH (08:02)
--- NOTE | 2018-10-10 09:43 | Surgery Progress Note ---
Date of Service October 10, 2018 Assessment & Plan (1) SBO (small bowel obstruction): secondary to intra-abdominal carcinomatosis? Colon cancer stage IV, s/p transverse colectomy 12/2017 currently on immunotherapy Vitals stable, still tachycardic 110's Passing small amount of flatus, no bowel movement NGT with 1400 last 24 hours, 100 last shift, clear bilious Plan: continue conservative measures at this time: NPO, NGT to LIS, IV Fluids, IV Dialudid COLLEGE INTERN prn pain, IV Zofran prn nausea. May clamp NGT to ambulate, encouraged OOB to chair if does not significantly improve with conservative measures may require surgical exploration in which a tertiary center would be recommended given his intra-abdominal carcinomatosis. SCDs for DVT prophylaxis continue medical management Patient discussed with Dr. Prado and Dr. Hernandez. Persistent tachycardia increasing to 140's with activity. Obtaining Chest CT to rule out PE and bilateral LE Duplex US to r/o DVT. Dr. Hernandez recommends cbc to check wbc and lactic acid to rule out any signs of ischemia. Continue conservative measures as above Subjective +sore throat abdominal pain better controlled with Dilaudid COLLEGE [employer]N Still having right upper abdominal pain does not feel bloated passing flatus (same amount as yesterday), no bowel movement, no urge to have bowel movement Usually constipated with home pain medication regimen Physical Exam 2 Vital Signs (Past 24 Hours): Last Vital Signs Temp 36.7 C 10/10/18 07:39 Pulse 99 H 10/10/18 08:00 Resp 19 10/10/18 07:39 BP 128/84 10/10/18 07:39 Pulse Ox 98 10/10/18 07:39 Constitutional: WD/WN, vitals as above + thin; no acute distress Neck: trachea midline Respiratory: normal respiratory effort; no respiratory distress Gastrointestinal (Abdomen): Inspection/Auscultation: abdomen normal to inspection; abdomen not distended Percussion/Palpation: + abdomen tender (RUQ ) and abdomen soft; no guarding and abdomen not rigid NGT: clear bilious output Skin: no rashes, warm and dry Psychiatric: Orientation: alert and oriented x 3 Eye Contact: good eye contact Affect: + flat affect Results & Data Laboratory Results 10/10/18 Range/Units 05:42 Sodium 135 L (136-145) mmol/L Potassium 3.7 (3.5-5.1) mmol/L Chloride 103 (98-107) mmol/L Carbon Dioxide 24 (21-32) mmol/L Anion Gap 8.0 (3-11) BUN 8 (7-18) mg/dl Creatinine 0.49 L (0.6-1.4) mg/dl Est Cr Clr Drug Dosing 178.0 ml/min Est GFR ( Amer) > 150.0 Est GFR (Non-Af Amer) 141.6 BUN/Creatinine Ratio 15.2 (10-20) Glucose 76 (70-99) mg/dl Calcium 7.7 L (8.5-10.1) mg/dl Phosphorus 3.0 (2.5-4.9) mg/dl Magnesium 1.8 (1.8-2.4) mg/dl
[2018-10-10] MEDS ORDERED: TPN/PPN CONSULT PHARMACY PRN (11:56)
[2018-10-10] MEDS: SODIUM CHLORIDE 0.9% 1000ML 1,000 ML IV SCH ×2 (11:57→18:11)
--- NOTE | 2018-10-10 12:00 | Hospitalist Progress Note ---
Date of Service October 10, 2018 Assessment & Plan (1) Sinus tachycardia: Patient was noted to be tachycardic, since admission heart rate increases to [id number] with activity Abdominal pain is well controlled Monitor in telemetry Will order CT abdomen chest with contrast to rule out PE, high risk given metastatic colon cancer/[place] CA Lower extremity Doppler doses DVT Present on Admission?: Yes (2) SBO (small bowel obstruction): Due to metastatic colon cancer Presented with high-grade small bowel obstruction: History of colon cancer stage IV, status post transverse colon resection, peritoneal carcinomatosis CT abdomen pelvis IMPRESSION: 1. Findings consistent with a high-grade small bowel obstruction with transition point likely within the right upper quadrant. Adjacent soft tissue thickening and associated hyperdense material which may reflect calcification or surgical material. This may account for the bowel obstruction and raises the possibility of malignancy. Correlation with history of malignancy is recommended given possible peritoneal carcinomatosis. Trace ascites. No pneumatosis, free air or portal venous gas. Placement of a nasogastric tube might be considered as well surgical consultation. 2. Ill-defined soft tissue anterior to the rectum which is worrisome for a neoplastic process such as peritoneal carcinomatosis. 3.4 cm ileocolic mass which may reflect jose metastasis. Indeterminate new 2.2 cm hepatic lesion. A PET/CT may be of benefit in further evaluation of these findings. 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 Ayers Given the limitation of abdomen x-ray, very hard to assess resolution of high- grade small bowel obstruction -Improvement of bowel dilatation, decompression noted, possibly secondary to ongoing NG suction Keep patient n.p.o., NG suction, pain control Patient will be started on TPN for nutritional support, pharmacy consulted, for TPN management, discussed with Dr. Hernandez, in agreement with plan Patient has A port- Daily lab ordered for TPN Present on Admission?: Yes (3) Colon cancer: [place] CA Of Transverse colon CA incidental finding as pt presented with bowel obstruction in 01/19/2018 Status post exploratory laparotomy/transverse colectomy at [facility] by Dr. 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 Montalvo at [facility] CT of abdomen pelvis on 07/18/2018 showed at least 3 mesenteric soft tissue nodules which are new when compared to previous imaging studies done before treatment PET scan PET CT scan also confirmed metabolic active mesenteric soft tissue masses patient was started on immunotherapy with Keytruda, received [address] of abdomen pelvis 09/25/2018 showed interval progression progression of peritoneal and mesenteric disease imAA right abdominal wall and measuring 5.5-2.3 cm with new partially calcified disease, previously the index disease along the right small bowel mesentery measured 3.2 X 0.5 cm( on 06/2018 scan ) stage 4 metastatic colon ca scheduled to have started on immunotherapy -Optivo and Iplimumab Present on Admission?: Yes (4) Peritoneal metastases: Worsening peritoneal/mesenteric disease. CT abdomen pelvis on 09/25/2018 at [facility]: New and/or worsening disease adjustment to the right abdominal wall measures 5.5x2.3 cm, with a new partially calcified disease. Previously indexed disease along the right small bowel mesentery measured 2.4x1.8 cm Disease in posterior pelvis bone above seminal vesicles Measures 3x2.3 cm Previously was 1.9 x1.5 cm Patient was recently evaluated by medical oncologist at [facility] for : systemic chemo therapy/surgical intervention/intraperitoneal chemotherapy Present on Admission?: Yes (5) S/P partial colectomy: [place] CA Of Transverse colon CA incidental finding as pt presented with bowel obstruction in 01/19/2018 Status post exploratory laparotomy/transverse colectomy at [facility] by Dr. Moore Pathology showed moderately differentiated adeno CA with 2 out of 12 lymph nodes positive for metastatic disease Recent scan shows progression of disease, with worsening of peritoneal carcinomatosis For any indication for surgical intervention, patient will need to be transferred to tertiary care with Surgical Oncology service -either to [facility] or [facility] ( pt was recently seen there for further treatment option ) Present on Admission?: Yes (6) Hypokalemia: Due to ongoing GI loss replaced cont daily lab check for TPN Present on Admission?: Yes (7) DVT prophylaxis: moderate to high risk given metastatic [place] CA of colon ordered SCD and teds pharmacological anticoagulation avoided: As patient may need surgical intervention CODE STATUS: Full code Subjective NG suction is less today, Right upper quadrant abdominal pain better controlled with IV Dilaudid GLASS CALIBRATOR Was able to walk on the hallway Mentions of able to pass gas, no bowel movement Patient noted to have sinus tachycardia, at rest 215, with activity heart rate gets elevated to 150 Physical Exam 2 Vital Signs (Past 24 Hours): Last Vital Signs Temp 36.5 C 10/10/18 10:47 Pulse 100 H 10/10/18 10:47 Resp 20 10/10/18 10:47 BP 128/83 10/10/18 10:47 Pulse Ox 98 10/10/18 10:47 Constitutional: + ill appearing, + thin and + cachectic Eyes: PERRL, conjunctivae normal, anicteric sclerae ENMT: external ear and nose normal, oropharynx normal Mouth: + dry oral mucous membranes (NG tube present, draining dark bilious gastric drainage) Respiratory: normal respiratory effort, lungs clear to auscultation Cardiovascular: Rate/Rhythm: regular rate, regular rhythm and + tachycardic ( Sinus tachycardia heart rate in the 110s) Vessels: normal peripheral pulses Extremities: no edema Gastrointestinal (Abdomen): Inspection/Auscultation: + hypoactive bowel sounds ; abdomen not distended (flat) and + abnormal bowel sounds (minimal) Percussion/Palpation: + abdomen tender (Right upper quadrant, with positive rebound) and + abdomen firm; no hepatosplenomegaly Musculoskeletal: no cyanosis or clubbing, extremities motor strength 5/5 Skin: no rashes, warm and dry Neurologic: PERRL, EOMI, accommodation nl, no face palsy, no dysarthria Psychiatric: A+Ox3, euthymic affect Orientation: alert and oriented x 3 Eye Contact: good eye contact Affect: + depressed affect _ (1) Colon cancer Colon location: transverse Qualified Code(s): C18.4 - Malignant neoplasm of transverse colon
[2018-10-10] MEDS ORDERED: OPTIRAY 320 125ml IV PRN (13:16)
[2018-10-10] MEDS ORDERED: DEXTROSE 10% 1,000 ML IV SCH (13:30)
--- NOTE | 2018-10-10 13:36 | CT Scan Report ---
CT ANGIOGRAM OF THE CHEST CLINICAL HISTORY: Atypical chest pain and shortness of breath COMPARISON STUDY: No previous studies for comparison. TECHNIQUE: Following the IV administration of 119 mL of Optiray-320, CT angiogram of the thorax was p erformed from the thoracic inlet to the lung bases utilizing the pulmonary embolus protocol. Images a re reviewed in the axial, sagittal, and coronal planes. IV contrast was administered without complica tion. MIP imaging was performed. A dose lowering technique was utilized adhering to the principles o f ALARA. CT DOSE: 218.05 mGy.cm FINDINGS: No pathologically enlarged axillary mediastinal or hilar lymph nodes were visualized. There was no evidence of thoracic aortic dilatation. There were no pulmonary artery filling defects to indicate acute pulmonary embolism. No pleural effusions are visualized. There are multiple ill-defined nodules within the superior segment of the left lower lobe with a tree -in-bud configuration. The findings are most consistent with an infectious process. Note is made of a hyperlucent left lower lobe, finding similar to a December [address] scan. This is not felt to be of acute clinical significance. There is an indwelling nasogastric tube. IMPRESSION: 1. No evidence of acute pulmonary embolism 2. Multiple ill-defined nodules in the superior segment the left lower lobe with a tree-in-bud config uration. The findings are most consistent with an infectious process. Electronically signed by: Gopal Bullock M.D. 10/10/2018 1:34 PM
[2018-10-10] MEDS ORDERED: PIPERACILL/TAZOBAC CONSULT ACTIVE PRN (13:48)
--- NOTE | 2018-10-10 14:05 | Ultrasound Report ---
US venous doppler LE CLINICAL HISTORY: Atypical chest pain. Shortness of breath. Possible pulmonary embolism. COMPARISON STUDY: No previous studies for comparison. FINDINGS: Real-time and color flow Doppler imaging were performed. Flow was seen within the femoral, popliteal and calf veins with no intraluminal thrombus demonstrated. The saphenous vein is patent. IMPRESSION: No evidence of lower extremity DVT. Electronically signed by: Gopal Bullock M.D. 10/10/2018 2:03 PM
[2018-10-10] MEDS ORDERED: PIPERACILLIN/TAZOBACTAM 4.5 GM in DEXTROSE 5% 100 ML IV ONE (14:15)
[2018-10-10] MEDS ORDERED: CUSTOM CENTRAL PN IV SCH (16:00)
[2018-10-10] MEDS: PIPERACILLIN/TAZOBACTAM 3.375 GM in DEXTROSE 5% 100 ML IV SCH (19:50)
[2018-10-11] MEDS: PIPERACILLIN/TAZOBACTAM 3.375 GM in DEXTROSE 5% 100 ML IV SCH ×3 (03:46→20:13)
[2018-10-11] MEDS: ACETAMINOPHEN 1000 MG/100 ML IV IV SCH ×3 (05:41→22:35)
[2018-10-11 05:54] LABS: Hematocrit (blood only) 31.4 % (42-52); Hemoglobin 10.3 g/dL (14.0-18.0); Mean Corpuscular Hgb Conc 32.8 g/dL (32-36); Mean Corpuscular Volume 79.9 fL (80-100); Mean Platelet Volume 9.4 fL (7.4-10.4); Platelet Count 263 K/uL (130-400); RDW Coefficient of Variation 12.7 % (11.5-14.5); RDW Standard Deviation 37.2 fL (36.4-46.3); Red Blood Count 3.93 M/uL (4.7-6.1); White Blood Count 5.38 K/uL (4.8-10.8)
[2018-10-11 06:31] LABS: BUN Creatinine Ratio 13.2 (10-20); Blood Urea Nitrogen 7 mg/dl (7-18); Calcium 7.9 mg/dl (8.5-10.1); Carbon Dioxide 30 mmol/L (21-32); Chloride 101 mmol/L (98-107); Creatinine Clr Calc Pharmacy 167.7 ml/min; Est GFR (African American) > 150.0; Est GFR (Non-African American) 138.2; Glucose 125 mg/dl (70-99); Potassium 3.2 mmol/L (3.5-5.1); Sodium 135 mmol/L (136-145)
[2018-10-11 06:32] LABS: Phosphorus 3.4 mg/dl (2.5-4.9); Triglycerides 103 mg/dl (0-150)
--- NOTE | 2018-10-11 08:40 | Surgery Progress Note ---
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 Continue ambulation SCDs for DVT prophylaxis continue medical management if does not significantly improve with conservative measures may require surgical exploration in which a tertiary center would be recommended given his intra-abdominal carcinomatosis. Dr. Hernandez has seen and examined pt, agrees with above Subjective feeling okay sitting up at side of bed, ready to go for walk +flatus, no bowel movement yet abdominal pain "moderate" better controlled with [employer] Physical Exam 2 Vital Signs (Past 24 Hours): Last Vital Signs Temp 36.5 C 10/11/18 07:29 Pulse 120 H 10/11/18 07:29 Resp 19 10/11/18 07:29 BP 119/75 10/11/18 07:29 Pulse Ox 97 10/11/18 07:29 Constitutional: WD/WN, vitals as above + thin; no acute distress Neck: trachea midline Respiratory: normal respiratory effort; no respiratory distress Gastrointestinal (Abdomen): Inspection/Auscultation: abdomen normal to inspection; abdomen not distended Skin: no rashes, warm and dry Psychiatric: A+Ox3, euthymic affect Orientation: alert and oriented x 3 Eye Contact: good eye contact Affect: + flat affect Results & Data Laboratory Results 10/11/18 10/11/18 10/11/18 Range/Units 06:07 05:41 05:41 WBC (4.8-10.8) K/uL RBC (4.7-6.1) M/uL Hgb (14.0-18.0) g/dL Hct (42-52) % MCV (80-100) fL MCH (25-34) pg MCHC (32-36) g/dL RDW Std Deviation (36.4-46.3) fL RDW Coeff of Doug (11.5-14.5) % Plt Count (130-400) K/uL MPV (7.4-10.4) fL Sodium (136-145) mmol/L Potassium (3.5-5.1) mmol/L Chloride (98-107) mmol/L Carbon Dioxide (21-32) mmol/L Anion Gap (3-11) BUN (7-18) mg/dl Creatinine (0.6-1.4) mg/dl Est Cr Clr Drug Dosing ml/min Est GFR ( Amer) Est GFR (Non-Af Amer) BUN/Creatinine Ratio (10-20) Glucose (70-99) mg/dl POC Glucose 129 H (70-99) Lactate (0.4-2.0) mmol/L Calcium (8.5-10.1) mg/dl Ionized Calcium (1.12-1.32) mmol/L Phosphorus (2.5-4.9) mg/dl Magnesium (1.8-2.4) mg/dl Triglycerides (0-150) mg/dl Carcinoembryonic Ag 1.9 (0-2.5) ng/ml Procalcitonin < 0.05 (0-0.5) ng/ml 10/11/18 10/11/18 10/11/18 Range/Units 05:41 05:41 05:41 WBC 5.38 (4.8-10.8) K/uL RBC 3.93 L (4.7-6.1) M/uL Hgb 10.3 L (14.0-18.0) g/dL Hct 31.4 L (42-52) % MCV 79.9 L (80-100) fL MCH 26.2 (25-34) pg MCHC 32.8 (32-36) g/dL RDW Std Deviation 37.2 (36.4-46.3) fL RDW Coeff of Doug 12.7 (11.5-14.5) % Plt Count 263 (130-400) K/uL MPV 9.4 (7.4-10.4) fL Sodium (136-145) mmol/L Potassium (3.5-5.1) mmol/L Chloride (98-107) mmol/L Carbon Dioxide (21-32) mmol/L Anion Gap (3-11) BUN (7-18) mg/dl Creatinine (0.6-1.4) mg/dl Est Cr Clr Drug Dosing ml/min Est GFR ( Amer) Est GFR (Non-Af Amer) BUN/Creatinine Ratio (10-20) Glucose (70-99) mg/dl POC Glucose (70-99) Lactate 0.8 (0.4-2.0) mmol/L Calcium (8.5-10.1) mg/dl Ionized Calcium 1.09 L (1.12-1.32) mmol/L Phosphorus (2.5-4.9) mg/dl Magnesium (1.8-2.4) mg/dl Triglycerides (0-150) mg/dl Carcinoembryonic Ag (0-2.5) ng/ml Procalcitonin (0-0.5) ng/ml 10/11/18 10/10/18 10/10/18 Range/Units 05:41 23:48 18:05 WBC (4.8-10.8) K/uL RBC (4.7-6.1) M/uL Hgb (14.0-18.0) g/dL Hct (42-52) % MCV (80-100) fL MCH (25-34) pg MCHC (32-36) g/dL RDW Std Deviation (36.4-46.3) fL RDW Coeff of Doug (11.5-14.5) % Plt Count (130-400) K/uL MPV (7.4-10.4) fL Sodium 135 L (136-145) mmol/L Potassium 3.2 L (3.5-5.1) mmol/L Chloride 101 (98-107) mmol/L Carbon Dioxide 30 (21-32) mmol/L Anion Gap 4.0 (3-11) BUN 7 (7-18) mg/dl Creatinine 0.52 L (0.6-1.4) mg/dl Est Cr Clr Drug Dosing 167.7 ml/min Est GFR ( Amer) > 150.0 Est GFR (Non-Af Amer) 138.2 BUN/Creatinine Ratio 13.2 (10-20) Glucose 125 H (70-99) mg/dl POC Glucose 125 H 110 H (70-99) Lactate (0.4-2.0) mmol/L Calcium 7.9 L (8.5-10.1) mg/dl Ionized Calcium (1.12-1.32) mmol/L Phosphorus 3.4 (2.5-4.9) mg/dl Magnesium 2.0 (1.8-2.4) mg/dl Triglycerides 103 (0-150) mg/dl Carcinoembryonic Ag (0-2.5) ng/ml Procalcitonin (0-0.5) ng/ml Diagnostic Findings CT ANGIOGRAM OF THE CHEST CLINICAL HISTORY: Atypical chest pain and shortness of breath COMPARISON STUDY: No previous studies for comparison. TECHNIQUE: Following the IV administration of 119 mL of [id number], CT angiogram of the thorax was performed from the thoracic inlet to the lung bases utilizing the pulmonary embolus protocol. Images are reviewed in the axial, sagittal, and coronal planes. IV contrast was administered without complication. MIP imaging was performed. A dose lowering technique was utilized adhering to the principles of ALARA. CT DOSE: 218.05 mGy.cm FINDINGS: No pathologically enlarged axillary mediastinal or hilar lymph nodes were visualized. There was no evidence of thoracic aortic dilatation. There were no pulmonary artery filling defects to indicate acute pulmonary embolism. No pleural effusions are visualized. There are multiple ill-defined nodules within the superior segment of the left lower lobe with a tree-in-bud configuration. The findings are most consistent with an infectious process. Note is made of a hyperlucent left lower lobe, finding similar to a December [address] scan. This is not felt to be of acute clinical significance. There is an indwelling nasogastric tube. IMPRESSION: 1. No evidence of acute pulmonary embolism 2. Multiple ill-defined nodules in the superior segment the left lower lobe with a tree-in-bud configuration. The findings are most consistent with an infectious process. US venous doppler LE BI CLINICAL HISTORY: Atypical chest pain. Shortness of breath. Possible pulmonary embolism. COMPARISON STUDY: No previous studies for comparison. FINDINGS: Real-time and color flow Doppler imaging were performed. Flow was seen within the femoral, popliteal and calf veins with no intraluminal thrombus demonstrated. The saphenous vein is patent. IMPRESSION: No evidence of lower extremity DVT.
--- NOTE | 2018-10-11 09:14 | Hospitalist Progress Note ---
Date of Service October 11, 2018 Assessment & Plan (1) SBO (small bowel obstruction): Presented with abdominal pain and nausea. History of colon cancer, status post partial colectomy, now with peritoneal carcinomatosis. CT demonstrated small bowel obstruction with transition point in the right upper quadrant. General Surgery consultation obtained. Managed with bowel rest, NG tube, IV fluids, TPN. Passing some flatus. NG tube clamped. Ongoing management per General Surgery. (2) Sinus tachycardia: No fever. No evidence of pulmonary embolism on CTA of chest. (3) Hypokalemia: K this morning = 3.2. IV replacement. Follow. 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 CT of abdomen and pelvis during this admission showed bowel obstruction as discussed above as well as trace ascites, ill-defined soft tissue anterior to the rectum worrisome for neoplastic process, 3.4 cm ileocolic mass (possible jose metastases), 2.2 cm hepatic lesion. Management per Medical Oncology. (5) Abnormal screening computed tomography (CT) of chest: CTA of chest performed to rule out pulmonary embolism. No evidence of PE. Multiple ill-defined nodules were noted in the superior segment of the left lower lobe suggesting possible infectious process. Pulmonary nodules may be secondary to metastatic colon cancer. No fever, cough, or leukocytosis. Doubt pneumonia. Follow. (6) DVT prophylaxis: SCD's. Ambulate. (7) Discharge planning issues: To be determined. Family Medicine follow-up with Dr. Payne. Medical Oncology follow-up with Dr. Josué Montalvo. Subjective Recheck for bowel obstruction and other problems. Patient was seen in his room around 0900. NGT clamped. No bloating, nausea, vomiting. Passing flatus, but no stool. No chest pain. No cough or shortness of breath. No urinary symptoms. Physical Exam 2 Vital Signs (Past 24 Hours): Last Vital Signs Temp 36.5 C 10/11/18 07:29 Pulse 120 H 10/11/18 07:29 Resp 19 10/11/18 07:29 BP 119/75 10/11/18 07:29 Pulse Ox 97 10/11/18 07:29 Constitutional: no acute distress ENMT: Nose: + external nose abnormality (NGT) Respiratory: no respiratory distress Auscultation: lungs clear to auscultation bilaterally Cardiovascular: Rate/Rhythm: regular rate and regular rhythm Vessels: no JVD Extremities: no calf tenderness and no edema Gastrointestinal (Abdomen): Inspection/Auscultation: normal bowel sounds Percussion/Palpation: abdomen soft Skin: no rashes, warm and dry Psychiatric: Orientation: alert and oriented x 3 Results & Data Laboratory Results Short CBC 10/11/18 Range/Units 05:41 WBC 5.38 (4.8-10.8) K/uL Hgb 10.3 L (14.0-18.0) g/dL Hct 31.4 L (42-52) % Plt Count 263 (130-400) K/uL BMP 10/11/18 05:41 Sodium 135 L Potassium 3.2 L Chloride 101 Carbon Dioxide 30 BUN 7 Creatinine 0.52 L Glucose 125 H Calcium 7.9 L _ (1) Colon cancer Colon location: transverse Qualified Code(s): C18.4 - Malignant neoplasm of transverse colon
[2018-10-11] MEDS: POTASSIUM CHLORIDE / WTR 10 MEQ/100 ML PLCT IV SCH ×4 (09:45→12:39)
[2018-10-11] MEDS: PANTOprazole 40 MG in SYRINGE 0 ML IV SCH (10:46)
[2018-10-11] MEDS ORDERED: BISACODYL 10 MG SUPP PR STA (15:48)
[2018-10-11] MEDS ORDERED: CUSTOM CENTRAL PN IV SCH (16:00)
[2018-10-11] MEDS: SODIUM CHLORIDE 0.9% 1000ML 1,000 ML IV SCH (16:12)
[2018-10-11] MEDS: HYDROmorphone HCL 0.5MG/ML 50 ML CASSETTE IV PRN (16:54)
[2018-10-12] MEDS: PIPERACILLIN/TAZOBACTAM 3.375 GM in DEXTROSE 5% 100 ML IV SCH ×2 (04:20→12:09)
[2018-10-12 05:58] LABS: Hematocrit (blood only) 28.5 % (42-52); Hemoglobin 9.4 g/dL (14.0-18.0); Mean Corpuscular Volume 80.3 fL (80-100); Mean Platelet Volume 9.9 fL (7.4-10.4); Platelet Count 262 K/uL (130-400); RDW Coefficient of Variation 12.7 % (11.5-14.5); RDW Standard Deviation 37.7 fL (36.4-46.3); Red Blood Count 3.55 M/uL (4.7-6.1); White Blood Count 4.33 K/uL (4.8-10.8)
[2018-10-12] MEDS: ACETAMINOPHEN 1000 MG/100 ML IV IV SCH ×3 (06:08→21:02)
[2018-10-12 06:34] LABS: BUN Creatinine Ratio 16.4 (10-20); Blood Urea Nitrogen 7 mg/dl (7-18); Calcium 7.7 mg/dl (8.5-10.1); Carbon Dioxide 30 mmol/L (21-32); Chloride 107 mmol/L (98-107); Creatinine Clr Calc Pharmacy 203.8 ml/min; Est GFR (African American) > 150.0; Glucose 109 mg/dl (70-99); Phosphorus 3.7 mg/dl (2.5-4.9); Potassium 3.6 mmol/L (3.5-5.1); Sodium 140 mmol/L (136-145)
--- NOTE | 2018-10-12 07:37 | Surgery Progress Note ---
Date of Service October 12, 2018 Assessment & Plan (1) SBO (small bowel obstruction): Small bowel obstruction seems to be resolving Would continue clear liquids for now and then advance slowly Encouraged ambulation Subjective Feels better today Tolerated NG tube output with no nausea or vomiting Passing flatus Had bowel movement yesterday Tolerated clear liquid diet last night Physical Exam 2 Vital Signs (Past 24 Hours): Last Vital Signs Temp 36.7 C 10/12/18 03:10 Pulse 99 H 10/12/18 03:10 Resp 21 10/12/18 03:10 BP 110/76 10/12/18 03:10 Pulse Ox 99 10/12/18 03:10
[2018-10-12] MEDS: PANTOprazole 40 MG in SYRINGE 0 ML IV SCH (12:09)
[2018-10-12] MEDS ORDERED: CUSTOM CENTRAL PN IV SCH (16:00)
[2018-10-12] MEDS: SODIUM CHLORIDE 0.9% 1000ML 1,000 ML IV SCH ×2 (18:37→19:37)
[2018-10-12] MEDS: HYDROmorphone HCL 0.5MG/ML 50 ML CASSETTE IV PRN (19:16)
--- NOTE | 2018-10-12 20:44 | Hospitalist Progress Note ---
Date of Service October 12, 2018 Assessment & Plan (1) SBO (small bowel obstruction): Presented with abdominal pain and nausea. History of colon cancer, status post partial colectomy, now with peritoneal carcinomatosis. CT demonstrated small bowel obstruction with transition point in the right upper quadrant. General Surgery consultation obtained. Managed with bowel rest, NG tube, IV fluids, TPN. Started passing flatus and then some stool. NG tube clamped and removed. Started on clear liquids. Ongoing management per General Surgery. (2) Sinus tachycardia: No fever. No evidence of pulmonary embolism on CTA of chest. (3) Hypokalemia: K as low as 2.9. Received IV replacement. K this morning = 3.6. Follow. 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 CT of abdomen and pelvis during this admission showed bowel obstruction as discussed above as well as trace ascites, ill-defined soft tissue anterior to the rectum worrisome for neoplastic process, 3.4 cm ileocolic mass (possible jose metastases), 2.2 cm hepatic lesion. Management per Medical Oncology. (5) Abnormal screening computed tomography (CT) of chest: CTA of chest performed to rule out pulmonary embolism. No evidence of PE. Multiple ill-defined nodules were noted in the superior segment of the left lower lobe suggesting possible infectious process. Pulmonary nodules may be secondary to metastatic colon cancer. No fever, cough, or leukocytosis. Procalcitonin normal. Doubt pneumonia. Antibiotics discontinued. Follow. (6) DVT prophylaxis: SCD's. Ambulate. (7) Discharge planning issues: Anticipated discharge to home. Family Medicine follow-up with Dr. Payne. Medical Oncology follow-up with Dr. Josué Montalvo. Subjective Recheck for bowel obstruction and other problems. Patient was seen in his room around 1700. NGT removed. Started on clear liquids. No bloating, nausea, vomiting. Passing flatus and stool. No chest pain. No cough or shortness of breath. No urinary symptoms. Ambulating. Physical Exam 2 Vital Signs (Past 24 Hours): Last Vital Signs Temp 36.6 C 10/12/18 19:50 Pulse 96 H 10/12/18 19:50 Resp 18 10/12/18 19:50 BP 115/81 10/12/18 19:50 Pulse Ox 100 02/14/19 19:50 Constitutional: no acute distress Respiratory: no respiratory distress Auscultation: lungs clear to auscultation bilaterally Cardiovascular: Rate/Rhythm: regular rate and regular rhythm Vessels: no JVD Extremities: no calf tenderness and no edema Gastrointestinal (Abdomen): Inspection/Auscultation: normal bowel sounds Percussion/Palpation: + abdomen tender (mild upper abdominal tenderness) and abdomen soft Skin: no rashes, warm and dry Psychiatric: Orientation: alert and oriented x 3 _ (1) Colon cancer Colon location: transverse Qualified Code(s): C18.4 - Malignant neoplasm of transverse colon
[2018-10-13] MEDS: ACETAMINOPHEN 1000 MG/100 ML IV IV SCH ×3 (05:22→21:36)
--- NOTE | 2018-10-13 07:56 | Surgery Progress Note ---
Date of Service October 13, 2018 Assessment & Plan (1) SBO (small bowel obstruction): Small bowel obstruction seems to be resolving. Will order a suppository again for today. Will advance to a full liquid diet. Subjective Feels better today Tolerated clear liquids without nausea and vomiting Continues to pass flatus Has not had bowel movement since before yesterday Physical Exam 2 Vital Signs (Past 24 Hours): Last Vital Signs Temp 36.7 C 10/13/18 07:26 Pulse 85 10/13/18 07:26 Resp 18 10/13/18 07:26 BP 117/78 10/13/18 07:26 Pulse Ox 99 10/13/18 07:26 Gastrointestinal (Abdomen): Inspection/Auscultation: normal bowel sounds; abdomen not distended Percussion/Palpation: + abdomen tender (An area of right upper quadrant mass) and abdomen soft
[2018-10-13] MEDS ORDERED: BISACODYL 10 MG SUPP PR ONE (07:57)
[2018-10-13 08:32] LABS: Blood Urea Nitrogen 8 mg/dl (7-18); Calcium 8.1 mg/dl (8.5-10.1); Carbon Dioxide 28 mmol/L (21-32); Chloride 107 mmol/L (98-107); Creatinine Clr Calc Pharmacy 180.1 ml/min; Est GFR (African American) > 150.0; Est GFR (Non-African American) 141.6; Glucose 98 mg/dl (70-99); Magnesium 2.2 mg/dl (1.8-2.4); Phosphorus 4.2 mg/dl (2.5-4.9); Sodium 139 mmol/L (136-145)
[2018-10-13] MEDS: PANTOprazole 40 MG in SYRINGE 0 ML IV SCH (09:53)
--- NOTE | 2018-10-13 12:19 | Hospitalist Progress Note ---
Date of Service October 13, 2018 Assessment & Plan (1) SBO (small bowel obstruction): Presented with abdominal pain and nausea. History of colon cancer, status post partial colectomy, now with peritoneal carcinomatosis. CT demonstrated small bowel obstruction with transition point in the right upper quadrant. General Surgery consultation obtained. Managed with bowel rest, NG tube, IV fluids, TPN. Started passing flatus and then some stool. NG tube clamped and removed. Started on clear liquids; advanced to full liquids. Ongoing management per General Surgery. (2) Sinus tachycardia: No fever. No evidence of pulmonary embolism on CTA of chest. (3) Hypokalemia: K as low as 2.9. Received IV replacement. K this morning = 4.0. Follow. 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 CT of abdomen and pelvis during this admission showed bowel obstruction as discussed above as well as trace ascites, ill-defined soft tissue anterior to the rectum worrisome for neoplastic process, 3.4 cm ileocolic mass (possible jose metastases), 2.2 cm hepatic lesion. Management per Medical Oncology. (5) Abnormal screening computed tomography (CT) of chest: CTA of chest performed to rule out pulmonary embolism. No evidence of PE. Multiple ill-defined nodules were noted in the superior segment of the left lower lobe suggesting possible infectious process. Pulmonary nodules may be secondary to metastatic colon cancer. No fever, cough, or leukocytosis. Procalcitonin normal. Doubt pneumonia. Antibiotics discontinued. Follow. (6) DVT prophylaxis: SCD's. Ambulate. (7) Discharge planning issues: Anticipated discharge to home. Family Medicine follow-up with Dr. Payne. Medical Oncology follow-up with Dr. Josué Montalvo. Subjective Recheck for bowel obstruction and other problems. Patient was seen in his room around 1150. Started on full liquids. No bloating, nausea, vomiting. Passing flatus and stool. No chest pain. No cough or shortness of breath. No urinary symptoms. Ambulating. Physical Exam 2 Vital Signs (Past 24 Hours): Last Vital Signs Temp 36.3 C L 10/13/18 11:34 Pulse 113 H 10/13/18 11:34 Resp 18 10/13/18 11:34 BP 114/80 10/13/18 11:34 Pulse Ox 99 10/13/18 11:34 Constitutional: no acute distress Respiratory: no respiratory distress Auscultation: lungs clear to auscultation bilaterally Cardiovascular: Rate/Rhythm: regular rate and regular rhythm Vessels: no JVD Extremities: no calf tenderness and no edema Gastrointestinal (Abdomen): Inspection/Auscultation: normal bowel sounds Percussion/Palpation: + abdomen tender (mild upper abdominal tenderness) and abdomen soft Skin: no rashes, warm and dry Psychiatric: Orientation: alert and oriented x 3 Results & Data Laboratory Results Laboratory Results - last 24 hr 10/13/18 07:45 Sodium 139 Potassium 4.0 Chloride 107 Carbon Dioxide 28 Anion Gap 4.0 BUN 8 Creatinine 0.49 L Est Cr Clr Drug Dosing 180.1 Est GFR ( Amer) > 150.0 Est GFR (Non-Af Amer) 141.6 BUN/Creatinine Ratio 16.0 Glucose 98 Calcium 8.1 L Phosphorus 4.2 Magnesium 2.2 _ (1) Colon cancer Colon location: transverse Qualified Code(s): C18.4 - Malignant neoplasm of transverse colon
[2018-10-13] MEDS ORDERED: CUSTOM CENTRAL PN IV SCH (16:00)
[2018-10-13] MEDS: HYDROmorphone HCL 0.5MG/ML 50 ML CASSETTE IV PRN (16:29)
[2018-10-13] MEDS: SODIUM CHLORIDE 0.9% 1000ML 1,000 ML IV SCH (16:40)
[2018-10-14] MEDS: ACETAMINOPHEN 1000 MG/100 ML IV IV SCH ×3 (05:48→21:27)
[2018-10-14 07:07] LABS: BUN Creatinine Ratio 19.4 (10-20); Blood Urea Nitrogen 10 mg/dl (7-18); Carbon Dioxide 27 mmol/L (21-32); Chloride 105 mmol/L (98-107); Est GFR (African American) > 150.0; Est GFR (Non-African American) 138.2; Glucose 103 mg/dl (70-99); Phosphorus 4.2 mg/dl (2.5-4.9); Potassium 3.8 mmol/L (3.5-5.1); Sodium 137 mmol/L (136-145)
[2018-10-14] MEDS: PANTOprazole 40 MG in SYRINGE 0 ML IV SCH (10:39)
--- NOTE | 2018-10-14 11:37 | Surgery Progress Note ---
Date of Service October 14, 2018 Assessment & Plan (1) SBO (small bowel obstruction): 10/14/2018 SBO Patient seen and examined with Dr. Siegel Cover[facility] Patient feeling ok- passing flatus, no BM today On full liquid diet, +TPN, not feeling very hungry He is able to ambulate in hallway, but may want to consider SQ heparin for DVT prophylaxis. We will continue to follow. Subjective Patient resting in bed- feeling ok no BM, but passing flatus. Physical Exam 2 Vital Signs (Past 24 Hours): Last Vital Signs Temp 36.6 C 10/14/18 11:21 Pulse 113 H 10/14/18 11:21 Resp 20 10/14/18 11:21 BP 116/79 10/14/18 11:21 Pulse Ox 99 10/14/18 11:21
[2018-10-14] MEDS: ONDANSETRON INJ 2 MG/ML 2 ML VIAL IV PRN (11:59)
[2018-10-14 15:17] LABS: Prothrombin Time 10.1 Seconds (9.0-12.0)
--- NOTE | 2018-10-14 15:17 | Hospitalist Progress Note ---
Date of Service October 14, 2018 Assessment & Plan (1) SBO (small bowel obstruction): Presented with abdominal pain and nausea. History of colon cancer, status post partial colectomy, now with peritoneal carcinomatosis. CT demonstrated small bowel obstruction with transition point in the right upper quadrant. General Surgery consultation obtained. Managed with bowel rest, NG tube, IV fluids, TPN. Started passing flatus and then some stool. NG tube clamped and removed. Started on clear liquids; advanced to full liquids. Worsening GI symptoms today. Ongoing management per General Surgery. (2) Sinus tachycardia: No fever. No evidence of pulmonary embolism on CTA of chest. (3) Hypokalemia: K as low as 2.9. Received IV replacement. K this morning = 3.8. Follow. 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 CT of abdomen and pelvis during this admission showed bowel obstruction as discussed above as well as trace ascites, ill-defined soft tissue anterior to the rectum worrisome for neoplastic process, 3.4 cm ileocolic mass (possible jose metastases), 2.2 cm hepatic lesion. Management per Medical Oncology. (5) Abnormal screening computed tomography (CT) of chest: CTA of chest performed to rule out pulmonary embolism. No evidence of PE. Multiple ill-defined nodules were noted in the superior segment of the left lower lobe suggesting possible infectious process. Pulmonary nodules may be secondary to metastatic colon cancer. No fever, cough, or leukocytosis. Procalcitonin normal. Doubt pneumonia. Antibiotics discontinued. Follow. (6) DVT prophylaxis: SCD's ordered. Add SQ enoxaparin since surgical intervention unlikely at this time. Ambulating. (7) Discharge planning issues: Anticipated discharge to home. Family Medicine follow-up with Dr. Payne. Medical Oncology follow-up with Dr. Josué Montalvo. Subjective Recheck for bowel obstruction and other problems. Patient was seen in his room around 1330. Started on full liquids yesterday. Having some cramping, bloating, and nausea today. Passing flatus today, but no stool. No chest pain. No cough or shortness of breath. No urinary symptoms. Ambulating. Discouraged that GI symptoms are worse today. Physical Exam 2 Vital Signs (Past 24 Hours): Last Vital Signs Temp 36.6 C 10/14/18 11:21 Pulse 113 H 10/14/18 11:21 Resp 20 10/14/18 11:21 BP 116/79 10/14/18 11:21 Pulse Ox 99 10/14/18 11:21 Constitutional: no acute distress Respiratory: no respiratory distress Auscultation: lungs clear to auscultation bilaterally Cardiovascular: Rate/Rhythm: regular rate and regular rhythm Vessels: no JVD Extremities: no calf tenderness and no edema Gastrointestinal (Abdomen): Inspection/Auscultation: normal bowel sounds Percussion/Palpation: + abdomen tender (mild upper abdominal tenderness) and abdomen soft Skin: no rashes, warm and dry Psychiatric: Orientation: alert and oriented x 3 Results & Data Laboratory Results Laboratory Results - last 24 hr 10/14/18 10/14/18 06:04 14:54 PT 10.1 INR 1.0 Sodium 137 Potassium 3.8 Chloride 105 Carbon Dioxide 27 Anion Gap 5.0 BUN 10 Creatinine 0.52 L Est Cr Clr Drug Dosing 170.0 Est GFR ( Amer) > 150.0 Est GFR (Non-Af Amer) 138.2 BUN/Creatinine Ratio 19.4 Glucose 103 H Calcium 8.0 L Phosphorus 4.2 Magnesium 2.0 _ (1) Colon cancer Colon location: transverse Qualified Code(s): C18.4 - Malignant neoplasm of transverse colon
[2018-10-14] MEDS ORDERED: TPN/PPN CONSULT PHARMACY PRN (16:22)
[2018-10-14] MEDS ORDERED: DEXTROSE 10% 1,000 ML IV SCH (16:30)
[2018-10-14] MEDS: POTASSIUM CHLORIDE IV SCH (16:56)
[2018-10-14] MEDS: [UNRECOGNIZED DRUG - OTHER] IV SCH (16:56)
[2018-10-14] MEDS: SODI CHLOR IV SCH (16:56)
[2018-10-14] MEDS: ENOXAPARIN INJ 40 MG/0.4 ML SYR SQ SCH (21:26)
[2018-10-15] MEDS: POTASSIUM CHLORIDE IV SCH ×2 (02:49→15:23)
[2018-10-15] MEDS: SODI CHLOR IV SCH ×2 (02:49→15:23)
[2018-10-15] MEDS: [UNRECOGNIZED DRUG - OTHER] IV SCH ×2 (02:49→15:23)
[2018-10-15] MEDS: ACETAMINOPHEN 1000 MG/100 ML IV IV SCH ×3 (06:26→22:11)
[2018-10-15 07:05] LABS: BUN Creatinine Ratio 12.5 (10-20); Blood Urea Nitrogen 7 mg/dl (7-18); Calcium 8.2 mg/dl (8.5-10.1); Carbon Dioxide 28 mmol/L (21-32); Chloride 106 mmol/L (98-107); Creatinine Clr Calc Pharmacy 150.3 ml/min; Est GFR (African American) > 150.0; Est GFR (Non-African American) 131.2; Glucose 109 mg/dl (70-99); Magnesium 1.8 mg/dl (1.8-2.4); Phosphorus 4.6 mg/dl (2.5-4.9); Potassium 3.9 mmol/L (3.5-5.1); Sodium 138 mmol/L (136-145)
--- NOTE | 2018-10-15 09:13 | Surgery Progress Note ---
Date of Service October 15, 2018 Assessment & Plan (1) SBO (small bowel obstruction): 10/15/2018 SBO Patient seen and examined with Dr. Siegel Covering for [facility]. Feeling better this AM. On full liquid diet with TPN SQ Lovenox started. Please call with questions or concerns. [facility] will resume care tomorrow AM. 10/14/2018 SBO Patient seen and examined with Dr. Siegel Covering for [facility] Patient feeling ok- passing flatus, no BM today On full liquid diet, +TPN, not feeling very hungry He is able to ambulate in hallway, but may want to consider SQ heparin for DVT prophylaxis. We will continue to follow. Subjective Patient resting in bed- feeling better today. Did not eat much yesterday, but feels like he could eat today. no BM, but passing flatus. Physical Exam 2 Vital Signs (Past 24 Hours): Last Vital Signs Temp 36.7 C 10/15/18 07:56 Pulse 92 H 10/15/18 07:56 Resp 16 10/15/18 07:56 BP 108/74 10/15/18 07:56 Pulse Ox 98 10/15/18 07:56
--- NOTE | 2018-10-15 09:56 | Hospitalist Progress Note ---
Date of Service October 15, 2018 Assessment & Plan (1) SBO (small bowel obstruction): Presented with abdominal pain and nausea. History of colon cancer, status post partial colectomy, now with peritoneal carcinomatosis. CT demonstrated small bowel obstruction with transition point in the right upper quadrant. General Surgery consultation obtained. Managed with bowel rest, NG tube, IV fluids, TPN. Started passing flatus and then some stool. NG tube clamped and removed. Started on clear liquids; advanced to full liquids. Worsening GI symptoms last 2 days. Try decreasing EMERGENCY ROOM CLINICIAN hydromorphone dosing. Check f/u abdominal films. Ongoing management per General Surgery. (2) Sinus tachycardia: No fever. No evidence of pulmonary embolism on CTA of chest. (3) Hypokalemia: K as low as 2.9. Received IV replacement. K this morning = 3.9. Follow. 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 CT of abdomen and pelvis during this admission showed bowel obstruction as discussed above as well as trace ascites, ill-defined soft tissue anterior to the rectum worrisome for neoplastic process, 3.4 cm ileocolic mass (possible jose metastases), 2.2 cm hepatic lesion. Management per Medical Oncology. (5) Abnormal screening computed tomography (CT) of chest: CTA of chest performed to rule out pulmonary embolism. No evidence of PE. Multiple ill-defined nodules were noted in the superior segment of the left lower lobe suggesting possible infectious process. Pulmonary nodules may be secondary to metastatic colon cancer. No fever, cough, or leukocytosis. Procalcitonin normal. Doubt pneumonia. Antibiotics discontinued. Follow. (6) DVT prophylaxis: SCD's ordered. Added SQ enoxaparin since surgical intervention unlikely at this time. Ambulating. (7) Discharge planning issues: Anticipated discharge to home. Family Medicine follow-up with Dr. Payne. Medical Oncology follow-up with Dr. Josué Montalvo. Subjective Recheck for bowel obstruction and other problems. Patient was seen in his room around 0900. Persistent RUQ pain. Using EMERGENCY ROOM CLINICIAN several times a day. Nauseated. No emesis. Passing flatus, but no stool. Only ate about 1/2 of breakfast. No chest pain. No cough or shortness of breath. No urinary symptoms. Ambulating. Physical Exam 2 Vital Signs (Past 24 Hours): Last Vital Signs Temp 36.7 C 02/17/19 07:56 Pulse 92 H 10/15/18 07:56 Resp 16 10/15/18 07:56 BP 108/74 10/15/18 07:56 Pulse Ox 98 10/15/18 07:56 Constitutional: no acute distress Respiratory: no respiratory distress Auscultation: lungs clear to auscultation bilaterally Cardiovascular: Rate/Rhythm: regular rate and regular rhythm Vessels: no JVD Extremities: no calf tenderness and no edema Gastrointestinal (Abdomen): Inspection/Auscultation: normal bowel sounds Percussion/Palpation: + abdomen tender (moderate right-sided abdominal tenderness) and abdomen soft; abdomen not rigid Skin: no rashes, warm and dry Psychiatric: Orientation: alert and oriented x 3 Results & Data Laboratory Results Laboratory Results - last 24 hr 10/15/18 10/15/18 01:09 05:55 Sodium 138 Potassium 3.9 Chloride 106 Carbon Dioxide 28 Anion Gap 4.0 BUN 7 Creatinine 0.59 L Est Cr Clr Drug Dosing 150.3 Est GFR ( Amer) > 150.0 Est GFR (Non-Af Amer) 131.2 BUN/Creatinine Ratio 12.5 Glucose 109 H POC Glucose 118 H Calcium 8.2 L Phosphorus 4.6 Magnesium 1.8 _ (1) Colon cancer Colon location: transverse Qualified Code(s): C18.4 - Malignant neoplasm of transverse colon
[2018-10-15] MEDS: PANTOprazole 40 MG in SYRINGE 0 ML IV SCH (10:53)
[2018-10-15] MEDS: HYDROmorphone HCL 0.5MG/ML 50 ML CASSETTE IV PRN ×3 (11:06→15:39)
--- NOTE | 2018-10-15 11:33 | XRay Report ---
XR abdomen 2V w PA chest CLINICAL HISTORY: Small bowel obstruction COMPARISON STUDY: 10/09/2018 FINDINGS: The erect chest reveals no free air. There is a left-sided A-Port catheter. Erect and supin e views the abdomen reveal moderate right colonic stool. The nasogastric tube is been removed. There are surgical clips in right upper quadrant. There is a right upper quadrant suture line. There is sca ttered abdominal air-fluid levels. There are suspected fluid-filled small bowel loops. IMPRESSION: 1. Suspected mildly dilated small bowel loops. 2. Multiple air-fluid levels including colonic air-fluid levels. 3. No evidence of free air. 4. Interval removal of the nasogastric tube 5. No conventional radiographic evidence of a high-grade small bowel obstruction Electronically signed by: Gopal Bullock M.D. 10/15/2018 11:32 AM
[2018-10-15] MEDS ORDERED: HYDROmorphone INJ 0.5 MG/0.5 ML SYR IV STA (13:50)
[2018-10-15] MEDS: SODIUM CHLORIDE 0.9% 1000ML 1,000 ML IV SCH (14:13)
[2018-10-15] MEDS ORDERED: CUSTOM CENTRAL PN IV SCH (16:00)
[2018-10-15] MEDS: KETOROLAC TROMETHAMINE 15 MG/ML VIAL IV PRN (21:32)
[2018-10-15] MEDS: ENOXAPARIN INJ 40 MG/0.4 ML SYR SQ SCH (21:36)
[2018-10-16] MEDS: ACETAMINOPHEN 1000 MG/100 ML IV IV SCH ×3 (06:18→21:54)
[2018-10-16 07:14] LABS: BUN Creatinine Ratio 19.9 (10-20); Blood Urea Nitrogen 11 mg/dl (7-18); Calcium 8.1 mg/dl (8.5-10.1); Carbon Dioxide 27 mmol/L (21-32); Chloride 106 mmol/L (98-107); Creatinine Clr Calc Pharmacy 155.8 ml/min; Est GFR (African American) > 150.0; Glucose 102 mg/dl (70-99); Magnesium 2.1 mg/dl (1.8-2.4); Potassium 3.9 mmol/L (3.5-5.1); Sodium 139 mmol/L (136-145)
[2018-10-16 07:23] LABS: Phosphorus 3.9 mg/dl (2.5-4.9); Triglycerides 82 mg/dl (0-150)
[2018-10-16] MEDS: PANTOprazole 40 MG in SYRINGE 0 ML IV SCH (09:02)
[2018-10-16] MEDS: SODIUM CHLORIDE 0.9% 1000ML 1,000 ML IV SCH ×2 (09:12→18:00)
[2018-10-16] MEDS ORDERED: POLYETHYLENE (MIRALAX) 17 GM PACK PO SCH (09:15)
[2018-10-16] MEDS: KETOROLAC TROMETHAMINE 15 MG/ML VIAL IV PRN ×2 (10:54→17:04)
[2018-10-16] MEDS: DOCUSATE SODIUM 100 MG CAP PO SCH ×2 (14:27→20:28)
[2018-10-16 14:41] LABS: Bilirubin,Total 0.3 mg/dl (0.2-1)
--- NOTE | 2018-10-16 15:16 | Surgery Progress Note ---
Date of Service October 16, 2018 Assessment & Plan (1) SBO (small bowel obstruction): Resolving +bowel function - vital stable, afebrile - chronic abdominal pain (carcinomatosis) - Tolerating full liquids Plan: Advance diet to low fiber diet continue current pain management as needed OOB to chair and ambulate Should begin bowel regimen given pain management with narcotics and stool seen in Right colon on KUB: Colace BID at least for now Continue medical management Dr. Hernandez has seen and examined pt, agrees with above. Subjective feeling better no nausea, no vomiting + abdominal pain currently 4/10 + flatus two liquid bowel movements today Physical Exam 2 Vital Signs (Past 24 Hours): Last Vital Signs Temp 36.6 C 10/16/18 11:08 Pulse 95 H 10/16/18 11:08 Resp 16 10/16/18 11:08 BP 115/77 10/16/18 11:08 Pulse Ox 99 10/16/18 11:08 Constitutional: WD/WN, vitals as above + thin Respiratory: no respiratory distress Gastrointestinal (Abdomen): Inspection/Auscultation: abdomen not distended Percussion/Palpation: + abdomen tender (RLQ and RUQ) and abdomen soft; abdomen not rigid Skin: no rashes, warm and dry Psychiatric: A+Ox3, euthymic affect Results & Data Laboratory Results 10/16/18 10/16/18 10/16/18 Range/Units 13:31 06:21 05:56 Sodium 139 (136-145) mmol/L Potassium 3.9 (3.5-5.1) mmol/L Chloride 106 (98-107) mmol/L Carbon Dioxide 27 (21-32) mmol/L Anion Gap 6.0 (3-11) BUN 11 D (7-18) mg/dl Creatinine 0.57 L (0.6-1.4) mg/dl Est Cr Clr Drug Dosing 155.8 ml/min Est GFR ( Amer) > 150.0 Est GFR (Non-Af Amer) 133.0 BUN/Creatinine Ratio 19.9 (10-20) Glucose 102 H (70-99) mg/dl POC Glucose 106 H (70-99) Calcium 8.1 L (8.5-10.1) mg/dl Phosphorus 3.9 (2.5-4.9) mg/dl Magnesium 2.1 (1.8-2.4) mg/dl Total Bilirubin 0.3 (0.2-1) mg/dl Alkaline Phosphatase 116 (45-117) U/L Triglycerides 82 (0-150) mg/dl 10/16/18 Range/Units 00:17 Sodium (136-145) mmol/L Potassium (3.5-5.1) mmol/L Chloride (98-107) mmol/L Carbon Dioxide (21-32) mmol/L Anion Gap (3-11) BUN (7-18) mg/dl Creatinine (0.6-1.4) mg/dl Est Cr Clr Drug Dosing ml/min Est GFR ( Amer) Est GFR (Non-Af Amer) BUN/Creatinine Ratio (10-20) Glucose (70-99) mg/dl POC Glucose 101 H (70-99) Calcium (8.5-10.1) mg/dl Phosphorus (2.5-4.9) mg/dl Magnesium (1.8-2.4) mg/dl Total Bilirubin (0.2-1) mg/dl Alkaline Phosphatase (45-117) U/L Triglycerides (0-150) mg/dl Diagnostic Findings XR abdomen 2V w PA chest CLINICAL HISTORY: Small bowel obstruction COMPARISON STUDY: 10/09/2018 FINDINGS: The erect chest reveals no free air. There is a left-sided A-Port catheter. Erect and supine views the abdomen reveal moderate right colonic stool. The nasogastric tube is been removed. There are surgical clips in right upper quadrant. There is a right upper quadrant suture line. There is scattered abdominal air-fluid levels. There are suspected fluid-filled small bowel loops. IMPRESSION: 1. Suspected mildly dilated small bowel loops. 2. Multiple air-fluid levels including colonic air-fluid levels. 3. No evidence of free air. 4. Interval removal of the nasogastric tube 5. No conventional radiographic evidence of a high-grade small bowel obstruction
[2018-10-16] MEDS ORDERED: CUSTOM CENTRAL PN IV SCH (16:00)
--- NOTE | 2018-10-16 18:24 | Hospitalist Progress Note ---
Date of Service October 16, 2018 Assessment & Plan (1) SBO (small bowel obstruction): Presented with abdominal pain and nausea. History of colon cancer, status post partial colectomy, now with peritoneal carcinomatosis. CT demonstrated small bowel obstruction with transition point in the right upper quadrant. General Surgery consultation obtained. Managed with bowel rest, NG tube, IV fluids, TPN. Started passing flatus and then some stool. NG tube clamped and removed. Started on clear liquids; advanced to full liquids. Still having intermittent severe pain. Abdominal films yesterday- no apparent obstruction. Try decreasing M[employer]IM[employer]IA PROJECT MANAGER hydromorphone dosing. Ongoing management per General Surgery. (2) Sinus tachycardia: No fever. No evidence of pulmonary embolism on CTA of chest. (3) Hypokalemia: K as low as 2.9. Received IV replacement. K this morning = 3.9. Follow. 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 CT of abdomen and pelvis during this admission showed bowel obstruction as discussed above as well as trace ascites, ill-defined soft tissue anterior to the rectum worrisome for neoplastic process, 3.4 cm ileocolic mass (possible jose metastases), 2.2 cm hepatic lesion. Management per Medical Oncology. (5) Abnormal screening computed tomography (CT) of chest: CTA of chest performed to rule out pulmonary embolism. No evidence of PE. Multiple ill-defined nodules were noted in the superior segment of the left lower lobe suggesting possible infectious process. Pulmonary nodules may be secondary to metastatic colon cancer. No fever, cough, or leukocytosis. Procalcitonin normal. Doubt pneumonia. Antibiotics discontinued. Follow. (6) DVT prophylaxis: SCD's ordered. Added SQ enoxaparin since surgical intervention unlikely at this time. Ambulating. (7) Discharge planning issues: Anticipated discharge to home. Family Medicine follow-up with Dr. Payne. Medical Oncology follow-up with Dr. Josué Mnotalvo. Subjective Recheck for bowel obstruction and other problems. Patient was seen in his room around 1100. Tried to cut back on hydromorphone MULTIMEDIA PROJECT MANAGER dosing yesterday by stopping maintenance infusion, but pain worsened. Resumed maintenance infusion at decreased rate of 0.25 mg/hr. Less RUQ pain today. Still using MULTIMEDIA PROJECT MANAGER several times a day. Nauseated. No emesis. Passing flatus and stool. Only some breakfast. No chest pain. No cough or shortness of breath. Ambulating. Physical Exam 2 Vital Signs (Past 24 Hours): Last Vital Signs Temp 36.5 C 10/16/18 16:09 Pulse 110 H 10/16/18 16:09 Resp 16 10/16/18 16:09 BP 117/71 10/16/18 16:09 Pulse Ox 99 10/16/18 16:09 Constitutional: no acute distress ENMT: Nose: + external nose abnormality (NGT) Respiratory: no respiratory distress Auscultation: lungs clear to auscultation bilaterally Cardiovascular: Rate/Rhythm: regular rate and regular rhythm Vessels: no JVD Extremities: no calf tenderness and no edema Gastrointestinal (Abdomen): Inspection/Auscultation: normal bowel sounds Percussion/Palpation: + abdomen tender (moderate right-sided abdominal tenderness; mild left-sided tenderness) and abdomen soft; abdomen not rigid Skin: no rashes, warm and dry Psychiatric: Orientation: alert and oriented x 3 _ (1) Colon cancer Colon location: transverse Qualified Code(s): C18.4 - Malignant neoplasm of transverse colon
[2018-10-16] MEDS: ENOXAPARIN INJ 40 MG/0.4 ML SYR SQ SCH (20:28)
[2018-10-17] MEDS: KETOROLAC TROMETHAMINE 15 MG/ML VIAL IV PRN ×3 (02:06→16:16)
[2018-10-17] MEDS: ACETAMINOPHEN 1000 MG/100 ML IV IV SCH ×3 (06:06→21:02)
[2018-10-17 06:55] LABS: Hematocrit (blood only) 27.6 % (42-52); Hemoglobin 9.1 g/dL (14.0-18.0); Mean Corpuscular Volume 79.8 fL (80-100); Mean Platelet Volume 9.7 fL (7.4-10.4); Platelet Count 264 K/uL (130-400); RDW Coefficient of Variation 12.9 % (11.5-14.5); RDW Standard Deviation 37.6 fL (36.4-46.3); Red Blood Count 3.46 M/uL (4.7-6.1); White Blood Count 6.27 K/uL (4.8-10.8)
[2018-10-17 07:29] LABS: Alanine Aminotransferase 23 U/L (12-78); Aspartate Aminotransferase 13 U/L (15-37); BUN Creatinine Ratio 22.4 (10-20); Blood Urea Nitrogen 11 mg/dl (7-18); Calcium 7.6 mg/dl (8.5-10.1); Carbon Dioxide 25 mmol/L (21-32); Chloride 106 mmol/L (98-107); Creatinine Clr Calc Pharmacy 176.2 ml/min; Est GFR (African American) > 150.0; Est GFR (Non-African American) 140.4; Glucose 101 mg/dl (70-99); Potassium 3.7 mmol/L (3.5-5.1); Sodium 137 mmol/L (136-145)
[2018-10-17] MEDS: DOCUSATE SODIUM 100 MG CAP PO SCH ×2 (08:03→21:03)
--- NOTE | 2018-10-17 08:45 | Surgery Progress Note ---
Date of Service October 17, 2018 Assessment & Plan (1) SBO (small bowel obstruction): SBO relved Continue diet as tolerated Subjective Denies nausea and vomiting Tolerated small amounts of regular diet Abdominal discomfort unchanged Physical Exam 2 Vital Signs (Past 24 Hours): Last Vital Signs Temp 36.7 C 10/17/18 08:17 Pulse 94 H 10/17/18 08:17 Resp 16 10/17/18 08:17 BP 112/74 10/17/18 08:17 Pulse Ox 100 10/17/18 08:17
[2018-10-17] MEDS: PANTOprazole 40 MG in SYRINGE 0 ML IV SCH (10:01)
[2018-10-17] MEDS: HEPARIN 100 UNIT/ML 5ML FLUSH FLUSH PRN (17:00)
--- NOTE | 2018-10-17 20:14 | Hospitalist Progress Note ---
Date of Service October 17, 2018 Assessment & Plan (1) SBO (small bowel obstruction): Presented with abdominal pain and nausea. History of colon cancer, status post partial colectomy, now with peritoneal carcinomatosis. CT demonstrated small bowel obstruction with transition point in the right upper quadrant. General Surgery consultation obtained. Managed with bowel rest, NG tube, IV fluids, TPN. Started passing flatus and then some stool. NG tube clamped and removed. Started on clear liquids; advanced to full liquids and now solids. Still having intermittent severe pain. Abdominal films 11/12- no apparent obstruction. Pain at this time appears to be related to abdominal carcinomatosis rather than obstruction. Start fentanyl patch 25 mcg/hr and hydrocodone / acetminophen elixir for breakthrough pain. Try decreasing ENVIRONMENTAL SERVICES ATTENDANT hydromorphone dosing as able. (2) Protein calorie malnutrition: Inadequate PO intake due to bowel obstruction and underlying malignancy. Nutrition consulted. Receiving TPN. Diet being advanced. Does not tolerate large meals. Small meals with snacks / supplements. Try stopping TPN. Continue to follow nutritional parameters. (3) Sinus tachycardia: No fever. No evidence of pulmonary embolism on CTA of chest. (4) Hypokalemia: K as low as 2.9. Received IV replacement. K this morning = 3.7. Follow. 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 CT of abdomen and pelvis during this admission showed bowel obstruction as discussed above as well as trace ascites, ill-defined soft tissue anterior to the rectum worrisome for neoplastic process, 3.4 cm ileocolic mass (possible jose metastases), 2.2 cm hepatic lesion. Management per Medical Oncology. (6) Abnormal screening computed tomography (CT) of chest: CTA of chest performed to rule out pulmonary embolism. No evidence of PE. Multiple ill-defined nodules were noted in the superior segment of the left lower lobe suggesting possible infectious process. Pulmonary nodules may be secondary to metastatic colon cancer. No fever, cough, or leukocytosis. Procalcitonin normal. Doubt pneumonia. Antibiotics discontinued. Follow. (7) DVT prophylaxis: SCD's ordered. Added SQ enoxaparin since surgical intervention unlikely at this time. Ambulating. (8) Discharge planning issues: Anticipated discharge to home. Family Medicine follow-up with Dr. Payne. Medical Oncology follow-up with Dr. Josué Montalvo. Subjective Recheck for bowel obstruction and other problems. Patient was seen in his room around 1345. visiting. Diet advanced to solids. Ate a small amount for breakfast and lunch, but still having abdominal pain and intermittent nausea. Still using ENVIRONMENTAL SERVICES ATTENDANT several times a day. Passing flatus and stool. No fever. No chest pain. No cough or shortness of breath. Ambulating in hallway. Physical Exam 2 Vital Signs (Past 24 Hours): Last Vital Signs Temp 36.5 C 10/17/18 15:50 Pulse 107 H 10/17/18 15:50 Resp 17 10/17/18 15:50 BP 128/80 10/17/18 15:50 Pulse Ox 100 10/17/18 15:50 Constitutional: no acute distress Respiratory: no respiratory distress Auscultation: lungs clear to auscultation bilaterally Cardiovascular: Rate/Rhythm: regular rate and regular rhythm Vessels: no JVD Extremities: no calf tenderness and no edema Gastrointestinal (Abdomen): Inspection/Auscultation: normal bowel sounds Percussion/Palpation: + abdomen tender (moderate right-sided abdominal tenderness; mild left-sided tenderness) and abdomen soft; abdomen not rigid Skin: no rashes, warm and dry Psychiatric: Orientation: alert and oriented x 3 Results & Data Laboratory Results Laboratory Results - last 24 hr 10/17/18 10/17/18 10/17/18 06:30 06:30 06:36 WBC 6.27 RBC 3.46 L Hgb 9.1 L Hct 27.6 L MCV 79.8 L MCH 26.3 MCHC 33.0 RDW Std Deviation 37.6 RDW Coeff of Doug 12.9 Plt Count 264 MPV 9.7 Sodium 137 Potassium 3.7 Chloride 106 Carbon Dioxide 25 Anion Gap 6.0 BUN 11 Creatinine 0.50 L Est Cr Clr Drug Dosing 176.2 Est GFR ( Amer) > 150.0 Est GFR (Non-Af Amer) 140.4 BUN/Creatinine Ratio 22.4 H Glucose 101 H POC Glucose 110 H Calcium 7.6 L AST 13 L ALT 23 _ (1) Colon cancer Colon location: transverse Qualified Code(s): C18.4 - Malignant neoplasm of transverse colon
[2018-10-17] MEDS ORDERED: fentaNYL 25 MCG/HR TDSY TD SCH (21:00)
[2018-10-17] MEDS: HYDROmorphone INJ 0.5 MG/0.5 ML SYR IV PRN (21:02)
[2018-10-17] MEDS: ENOXAPARIN INJ 40 MG/0.4 ML SYR SQ SCH (21:03)
[2018-10-18] MEDS: CHECK FENTANYL PATCH PLACEMENT SCH ×4 (00:03→23:18)
[2018-10-18] MEDS: HYDROmorphone INJ 0.5 MG/0.5 ML SYR IV PRN ×4 (00:04→21:53)
[2018-10-18] MEDS: HYDROCODONE/APAP 2.5MG/108MG ELIX 5 ML UDP PO PRN (06:09)
[2018-10-18] MEDS: DOCUSATE SODIUM 100 MG CAP PO SCH ×2 (08:46→21:54)
[2018-10-18] MEDS: KETOROLAC TROMETHAMINE 15 MG/ML VIAL IV PRN ×2 (08:51→15:33)
[2018-10-18] MEDS: PANTOprazole 40 MG in SYRINGE 0 ML IV SCH (12:10)
[2018-10-18] MEDS: SODIUM CHLORIDE 0.9% 1000ML 1,000 ML IV SCH (12:11)
--- NOTE | 2018-10-18 19:52 | Hospitalist Progress Note ---
Date of Service October 18, 2018 Assessment & Plan (1) Abdominal pain: experiencing diffuse abdominal spasm tenderness on rt lower quadrant with post prandial discomfort /full ness able to past gas /had bowel movement will D/w surgery for recommendation possible need to re imaging /repeat CT abdomen -given hx of peritoneal carcinomatosis / (2) SBO (small bowel obstruction): clinically resolved with conservative approach Presented with abdominal pain and nausea/vomiting History of colon cancer, status post partial colectomy, now with peritoneal carcinomatosis. CT abdomen in admussion demonstrated small bowel obstruction with transition point in the right upper quadrant. General Surgery consultation obtained. Managed with bowel rest, NG tube, IV fluids, TPN. Started passing flatus and then some stool. NG tube clamped and removed. Started on clear liquids; advanced to full liquids and now solids. Still having intermittent severe pain. Abdominal films 10/15- no apparent obstruction. Pain at this time appears to be related to abdominal carcinomatosis rather than obstruction. Started on fentanyl patch 25 mcg/hr and hydrocodone / acetminophen elixir for breakthrough pain. Present on Admission?: Yes (3) Protein calorie malnutrition: Inadequate PO intake due to bowel obstruction and underlying malignancy. Nutrition consulted. Receiving TPN. Diet being advanced. Does not tolerate large meals. Small meals with snacks / supplements. Continue to follow nutritional parameters. Present on Admission?: Yes (4) Sinus tachycardia: possible due to SBO /abdominal pain HR stable in 80-90's now as pt improved clinically -resolution of SBO , pain controlled No evidence of pulmonary embolism on CTA of chest. 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 CT of abdomen and pelvis during this admission showed bowel obstruction as discussed above as well as trace ascites, ill-defined soft tissue anterior to the rectum worrisome for neoplastic process, 3.4 cm ileocolic mass (possible jose metastases), 2.2 cm hepatic lesion. Management per Medical Oncology. (7) Abnormal screening computed tomography (CT) of chest: CTA of chest performed to rule out pulmonary embolism. No evidence of PE. Multiple ill-defined nodules were noted in the superior segment of the left lower lobe suggesting possible infectious process. Pulmonary nodules may be secondary to metastatic colon cancer. No fever, cough, or leukocytosis. Procalcitonin normal. Doubt pneumonia. Antibiotics discontinued. Follow. (8) DVT prophylaxis: SCD's ordered. Added SQ enoxaparin since surgical intervention unlikely at this time. Ambulating. (9) Discharge planning issues: Anticipated discharge to home. Family Medicine follow-up with Dr. Payne. Medical Oncology follow-up with Dr. Josué Montalvo. Subjective complains of episodes of diffuse abdominal spasm had used Dilaudid TABLEAU ARCHITECT only once experiencing post prandial discomfort /bloating able to have breakfast/had abdominal discomfort after few bites at lunch did not eat anything at dinner had bowel movement today , no diarrhea Physical Exam 2 Vital Signs (Past 24 Hours): Last Vital Signs Temp 36.3 C L 10/18/18 15:00 Pulse 106 H 10/18/18 15:00 Resp 22 10/18/18 15:00 BP 116/75 10/18/18 15:00 Pulse Ox 100 10/18/18 15:00 Constitutional: + ill appearing, + thin and + cachectic Eyes: PERRL, conjunctivae normal, anicteric sclerae ENMT: external ear and nose normal, oropharynx normal Respiratory: normal respiratory effort, lungs clear to auscultation Cardiovascular: Rate/Rhythm: regular rate and regular rhythm Vessels: normal peripheral pulses Extremities: no edema Gastrointestinal (Abdomen): Inspection/Auscultation: normal bowel sounds ( minimal), + abdominal surgical scar (healed laparoscopic scar /mid abdominal exp lap healed surgical scar ) and + hypoactive bowel sounds Percussion/ Palpation: + abdomen tender (rt upper and lower quadrant ) Musculoskeletal: no cyanosis or clubbing, extremities motor strength 5/5 Skin: no rashes, warm and dry Neurologic: PERRL, EOMI, accommodation nl, no face palsy, no dysarthria Psychiatric: A+Ox3, euthymic affect Orientation: alert and oriented x 3 _ (1) Colon cancer Colon location: transverse Qualified Code(s): C18.4 - Malignant neoplasm of transverse colon (2) Protein calorie malnutrition Protein-calorie malnutrition severity: moderate Qualified Code(s): E44.0 - Moderate protein-calorie malnutrition (3) Abdominal pain Abdominal location: right lower quadrant Qualified Code(s): R10.31 - Right lower quadrant pain
[2018-10-18] MEDS: HYDROmorphone HCL 0.5MG/ML 50 ML CASSETTE IV PRN (21:53)
[2018-10-18] MEDS: ENOXAPARIN INJ 40 MG/0.4 ML SYR SQ SCH (21:54)
[2018-10-19] MEDS: KETOROLAC TROMETHAMINE 15 MG/ML VIAL IV PRN (00:24)
[2018-10-19] MEDS: ONDANSETRON INJ 2 MG/ML 2 ML VIAL IV PRN ×2 (04:04→17:19)
[2018-10-19] MEDS ORDERED: CYCLOBENZAPRINE HCL 10 MG TAB PO PRN (07:27)
[2018-10-19] MEDS ORDERED: PANTOprazole 40 MG TAB PO SCH (09:00)
[2018-10-19] MEDS: DOCUSATE SODIUM 100 MG CAP PO SCH (09:06)
[2018-10-19] MEDS: CHECK FENTANYL PATCH PLACEMENT SCH ×3 (09:09→15:23)
--- NOTE | 2018-10-19 09:28 | Pain Management Consultation ---
Date of Consultation October 19, 2018 Assessment & Plan (1) Abdominal pain: 1. Continue Fentanyl patch 25mcg 2. Continue Hydrocodone elixer x 4 hours PRN pain 3. Continue Cyclobenzaprine 10mg TID 4. Continue IV Toradol PRN breakthrough pain. He has previously taken this medication and did not cause nausea. 5. Continue IV Dilaudid for PRN breakthrough pain 6. Dilaudid NURSE STAFF is discontinued. He was agreeable with this but after I left, nursing was D/C the NURSE STAFF and he became anxious that he was going to be in significant pain. He has used 10 mg of IV Dilaudid over the last 24 hours. He has used Hydrocodone once yesterday which was helpful. I have asked the patient to use the Hydrocodone elixer and IV Dilaudid now that the NURSE STAFF has been discontinued. 7. If the patient continues to report inadequate pain relief, recommend increasing Fentanyl patch to 50mcg. 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 He is status post partial colectomy and found to have a small bowel obstruction. He is experiencing associated nausea and decreased appetite. Patient has been experiencing waxing and waning diffuse abdominal pain. He describes a sharp spasming pain. Patient does have Fentanyl patch 25mcg, Hydrocodone elixer 10mL x 4 hours, IV Dilaudid, NURSE STAFF Dilaudid, and IV Toradol ordered. He states that his abdominal pain has slightly improved since yesterday although he is very nauseated this morning and attributes it to receiving IV Toradol last night. He was ordered Hydrocodone elixer yesterday and has tried it once. He felt that Hydrocodone elixer was moderately effective towards diminishing his pain. Patient rated his pain 4/10 currently. Patient was trialed on pain medications over the last 2 months from oncology including Tramadol, Percocet, and MS Contin. He has been able to have a bowel movement. No vomiting. PDMP MS Contin 30 mg prescribed on 10/03/18 #30 Percocet 5/325 mg prescribed on 09/23/18 #90 MS Contin 15 mg prescribed on 09/11/18 #60 Percocet 5/325 mg prescribed on 08/31/18 #90 Percocet 5/325 mg prescribed on 08/21/18 #30 Tramadol 50 mg prescribed on 08/15/18 #20 Allergies Allergy/AdvReac Type Severity Reaction Status Date / Time asparagus Allergy Intermediate "small Verified 10/08/18 15:36 bumps on skin" Home Medications Home Medications Medication Instructions Recorded Confirmed Type ascorbic acid (vitamin C) [Vitamin 500 mg PO DAILY 10/08/18 10/08/18 History C] digestive enzymes 1 cap PO DAILY 10/08/18 10/08/18 History magnesium sulfate 100 mg PO DAILY 10/08/18 10/08/18 History melatonin 20 mg PO HS 10/08/18 10/08/18 History morphine [MS Contin] 30 mg PO BID 10/08/18 10/08/18 History multivitamin 1 tab PO DAILY 10/08/18 10/08/18 History ondansetron 8 mg PO TID PRN 10/08/18 10/08/18 History oxycodone-acetaminophen [Percocet] 1 tab PO Q4H PRN 10/08/18 10/08/18 History prochlorperazine maleate 10 mg PO Q6H PRN 10/08/18 10/08/18 History Patient History Medical History Peritoneal metastases (Chronic) Colon cancer (Chronic) Surgical History S/P partial colectomy (Chronic) partial transverse colectomy History of cholecystectomy (Chronic) Family History Grandfather Colon cancer Uncle Colon cancer Social History marital status: Single Current Living Situation: Spouse and Family Feels Safe at Home: Yes Smoking Status: Never smoker Hx Alcohol Use: No Hx Substance Use: No Beliefs That Will Affect Care: None Preferred Language: [place] Communication Ability: Effective Review of Systems Denies complaints related to 10 point organ system review. Physical Exam 2 Vital Signs (Past 24 Hours): Last Vital Signs Temp 36.9 C 10/19/18 07:53 Pulse 116 H 10/19/18 07:53 Resp 16 10/19/18 07:53 BP 111/68 10/19/18 07:53 Pulse Ox 98 10/19/18 07:53 Physical Exam: GENERAL: 33 year old white male is thin and appears malnourished. Speech and cognition is intact. Mood and affect is appropriate. In no acute distress. HEAD: Normocephalic; atraumatic. EYES: Pupils are round, equal, and reactive to light; EOM intact. ENT: No external ear discharge or lesions. No rhinorrhea or epistaxis. No mucosal lesions. CHEST: Regular chest respiration and excursion. ABDOMEN: There is mild tenderness in the RUQ abdomen. There are no peritoneal signs noted. No trigger points noted. No guarding or rebound tenderness. No CVA tenderness. NEURO: CN II-XII grossly intact with no focal deficits noted. SKIN: No lesions, erythema, or rashes noted. Results & Data Diagnostic Findings XR abdomen 2V w PA chest CLINICAL HISTORY: Small bowel obstruction COMPARISON STUDY: 10/09/2018 FINDINGS: The erect chest reveals no free air. There is a left-sided A-Port catheter. Erect and supine views the abdomen reveal moderate right colonic stool. The nasogastric tube is been removed. There are surgical clips in right upper quadrant. There is a right upper quadrant suture line. There is scattered abdominal air-fluid levels. There are suspected fluid-filled small bowel loops. IMPRESSION: 1. Suspected mildly dilated small bowel loops. 2. Multiple air-fluid levels including colonic air-fluid levels. 3. No evidence of free air. 4. Interval removal of the nasogastric tube 5. No conventional radiographic evidence of a high-grade small bowel obstruction Electronically signed by: Gopal Bullock M.D. 10/15/2018 11:32 AM Dictated: 10/15/18 1129 Transcribed: 10/15/18 1129
[2018-10-19] MEDS: HYDROCODONE/APAP 2.5MG/108MG ELIX 5 ML UDP PO PRN ×2 (09:31→15:22)
[2018-10-19] MEDS: HEPARIN 100 UNIT/ML 5ML FLUSH FLUSH PRN (10:39)
[2018-10-19] MEDS: D5W AND LACTATED RINGERS 1,000 ML IV SCH (12:17)
[2018-10-19] MEDS: HYDROmorphone INJ 0.5 MG/0.5 ML SYR IV PRN ×4 (12:18→19:26)
[2018-10-19] MEDS: SODIUM CHLORIDE 0.9% 1000ML 1,000 ML IV SCH (16:04)
--- NOTE | 2018-10-19 17:59 | Hospitalist Progress Note ---
Date of Service October 19, 2018 Assessment & Plan (1) SBO (small bowel obstruction): recurrent small bowel obstruction due to metastatic colon Ca repeat CT abdomen /pelvis 10/19/18 : 1. Multiple dilated air and fluid-filled loops of small bowel throughout the abdomen and pelvis suggest ongoing small bowel obstruction, definite transition point is not definitively identified. Soft tissue thickening with hyperdense material about the abdominal right upper quadrant is again seen suggesting surgical suture material. Mild adjacent decompressed loops of bowel within this area may reflect transition point. Continued follow-up recommended. 2. No pneumatosis or pneumoperitoneum. 3. Heterogeneous soft tissue lesion of the right lower quadrant suggests jose metastasis with additional 2.5 cm soft tissue lesion of the presacral distribution suggestive of jose metastasis or peritoneal carcinomatosis. 4. 2.2 cm left hepatic lobe lesion is also suspicious for possible metastatic disease. ordered for NPO , IV fluids , pain control with IV meds NG tube not ordered as not active vomiitng noted will update surgery Presented with abdominal pain and nausea/vomiting -small bowel obstruciton History of colon cancer, status post partial colectomy, now with peritoneal carcinomatosis. CT abdomen in admussion demonstrated small bowel obstruction with transition point in the right upper quadrant. General Surgery consultation obtained. Managed with bowel rest, NG tube, IV fluids, TPN. Started passing flatus and then some stool. NG tube clamped and removed. Started on clear liquids; advanced to full liquids to solid cont to have intermittent severe pain. repeat CT finding as above : recurrence of SBO. Present on Admission?: Yes (2) Abdominal pain: due to above -SBO bowel rest , NPO ,IV fluid consider NG suction if worseing of N/V for any consideration of surgery for bowel obstruction -pt will need to be tx to Tertiary care surgery following (3) Protein calorie malnutrition: Inadequate PO intake due to bowel obstruction and underlying malignancy. Nutrition consulted. was on TPN. ordered for NPO for recurrent bowel obstruction overall prognosis remains poor (4) Sinus tachycardia: possible due to SBO /abdominal pain cont Iv fluid , pain control No evidence of pulmonary embolism on CTA of chest. 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 CT of abdomen and pelvis during this admission showed bowel obstruction as discussed above as well as trace ascites, ill-defined soft tissue anterior to the rectum worrisome for neoplastic process, 3.4 cm ileocolic mass (possible jose metastases), 2.2 cm hepatic lesion. Management per Medical Oncology. Present on Admission?: Yes (7) Abnormal screening computed tomography (CT) of chest: CTA of chest performed to rule out pulmonary embolism. No evidence of PE. Multiple ill-defined nodules were noted in the superior segment of the left lower lobe suggesting possible infectious process. Pulmonary nodules may be secondary to metastatic colon cancer. Present on Admission?: Yes (8) DVT prophylaxis: SCD's ordered. hols SQ Lovenox for repeated SBO (9) Discharge planning issues: CODE STATUS: Full code Anticipated discharge to home. Family Medicine follow-up with Dr. Payne. Medical Oncology follow-up with Dr. Josué Montalvo. Subjective continues to have diffuse abdominal pain with nausea no vomiting symptom worse with food CT abdomen /pelvis : shows small Bowel obstruction pt updated ordered for NPO pain medications changed to IV will D/w Surgery team Physical Exam 2 Vital Signs (Past 24 Hours): Last Vital Signs Temp 36.2 C L 10/19/18 14:38 Pulse 130 H 10/19/18 14:38 Resp 16 10/19/18 07:53 BP 103/70 10/19/18 14:38 Pulse Ox 100 10/19/18 14:38 Constitutional: + ill appearing, + thin, + cachectic and + in distress (Due to abdominal pain mostly localized to right upper quadrant) Eyes: PERRL, conjunctivae normal, anicteric sclerae ENMT: external ear and nose normal, oropharynx normal Respiratory: normal respiratory effort, lungs clear to auscultation Cardiovascular: Rate/Rhythm: regular rate, regular rhythm and + tachycardic ( Sinus tachycardia heart rate in the 110s) Vessels: normal peripheral pulses Extremities: no edema Gastrointestinal (Abdomen): Inspection/Auscultation: normal bowel sounds ( minimal), + abdominal surgical scar (healed laparoscopic scar /mid abdominal exp lap healed surgical scar ) and + hypoactive bowel sounds; abdomen not distended (flat) Percussion/Palpation: + abdomen tender (diffusely tender ), + guarding and abdomen soft Musculoskeletal: no cyanosis or clubbing, extremities motor strength 5/5 Skin: no rashes, warm and dry Neurologic: PERRL, EOMI, accommodation nl, no face palsy, no dysarthria Psychiatric: A+Ox3, euthymic affect Orientation: alert and oriented x 3 Eye Contact: good eye contact Affect: + depressed affect _ (1) Colon cancer Colon location: transverse Qualified Code(s): C18.4 - Malignant neoplasm of transverse colon (2) Abdominal pain Abdominal location: right lower quadrant Qualified Code(s): R10.31 - Right lower quadrant pain (3) Protein calorie malnutrition Protein-calorie malnutrition severity: moderate Qualified Code(s): E44.0 - Moderate protein-calorie malnutrition
[2018-10-19] MEDS ORDERED: IOVERSOL 100ml IV PRN (19:07)
--- NOTE | 2018-10-19 19:32 | CT Scan Report ---
ABDOMEN AND PELVIS CT WITH IV AND ORAL CONTRAST CT DOSE: 284.15 mGy.cm HISTORY: Acute generalized abdominal pain with history of colon cancer and metastatic peritoneal carc inomatosis. abdominal pain /peritoneal carcinomatosis-colon ca TECHNIQUE: Multiaxial CT images of the abdomen and pelvis were performed following the use of intrave nous and oral contrast. A dose lowering technique was utilized adhering to the principles of ALARA. COMPARISON STUDY: Acute abdominal series radiographs 10/15/2018, CT abdomen and pelvis 10/08/2018 and . FINDINGS: The imaged lung bases are generally clear. There is no pneumatosis or pneumoperitoneum identified. T he imaged inferior cardiac chambers appear unremarkable. Prior cholecystectomy with likely postsurgic al mild intrahepatic and extrahepatic biliary ductal dilation. Indeterminate 2.2 x 2.0 cm ill-defined hypodense lesion involves segment 4 of the liver, image 122 se abdirashid 3. No additional focal hepatic mass lesions identified. The spleen, pancreas and adrenal glands appear unremarkable. 4 mm nonobstructing calculus of the inferior pole right kidney. Kidneys and uret ers are otherwise unremarkable. Coarse calcifications noted about the central prostate. Urinary bladd er is unremarkable. Aorta and IVC are within normal limits. Air-filled distal esophagus. Layering hyperdense material noted within the gastric lumen. Multiple di lated air and fluid-filled loops of small bowel are seen measuring up to 4.0 cm transversely. Hyperde nse material within the abdominal right upper quadrant adjacent to the anterior peritoneal surface re demonstrated with adjacent decompressed loops of small bowel seen within this area. Trace amount of p elvic ascites. 2.5 cm soft tissue nodule anterior to the rectum redemonstrated. 3.5 x 3.0 cm soft tis radha lesion of the right lower quadrant mesentery, image 219 series 3 redemonstrated. Bilateral gyneco mastia with generalized body wall edema. Bones appear to be intact. No suspicious lytic or blastic [place] lesions identified. IMPRESSION: 1. Multiple dilated air and fluid-filled loops of small bowel throughout the abdomen and pelvis sugge st ongoing small bowel obstruction, definite transition point is not definitively identified. Soft ti ssue thickening with hyperdense material about the abdominal right upper quadrant is again seen sugge sting surgical suture material. Mild adjacent decompressed loops of bowel within this area may reflec t transition point. Continued follow-up recommended. 2. No pneumatosis or pneumoperitoneum. 3. Heterogeneous soft tissue lesion of the right lower quadrant suggests jose metastasis with additi onal 2.5 cm soft tissue lesion of the presacral distribution suggestive of jose metastasis or perito joseph carcinomatosis. 4. 2.2 cm left hepatic lobe lesion is also suspicious for possible metastatic disease. Electronically signed by: Artur Ortega M.D. 10/19/2018 7:30 PM
[2018-10-19] MEDS ORDERED: HYDROmorphone INJ 1 MG/ML SYRINGE IV STA (20:52)
[2018-10-19] MEDS: HYDROmorphone INJ 1 MG/ML SYRINGE IV PRN (22:29)
[2018-10-20] MEDS: PROCHLORPERAZINE 10 MG in SYRINGE 8 ML IV SCH ×4 (00:22→18:08)
[2018-10-20] MEDS: HYDROmorphone INJ 1 MG/ML SYRINGE IV PRN ×2 (00:22→01:52)
[2018-10-20] MEDS: CHECK FENTANYL PATCH PLACEMENT SCH ×2 (00:22→09:12)
[2018-10-20] MEDS: D5W AND LACTATED RINGERS 1,000 ML IV SCH (00:47)
[2018-10-20] MEDS: HYDROmorphone INJ 2 MG/ML SYR/VIAL IV PRN ×3 (04:06→09:12)
[2018-10-20] MEDS: PROMETHAZINE HCL 12.5 MG in SODIUM CHLORIDE 0.9% 50 ML IV PRN ×2 (04:32→14:44)
[2018-10-20] MEDS: ONDANSETRON INJ 2 MG/ML 2 ML VIAL IV PRN ×2 (09:18→16:46)
--- NOTE | 2018-10-20 09:47 | Surgery Progress Note ---
Date of Service October 20, 2018 Assessment & Plan (1) SBO (small bowel obstruction): [facility] to metastatic colon cancer and peritoneal carinomatosis SBO was resolving however patient developed increasing pain post prandial on with inability to eat without discomfort and decrease bowel function ( decreased flatus). Repeat CT scan on 10/19/18 showing multiple dilated air and fluid filled loops of small bowel throughout abdomen and pelvis suggesting ongoing small bowel obstruction however definite transition point is not definitively identified. Again seen are a RLQ mass and 2.5 cm soft tissue lesion of the presacral region suggesting jose metastasis vs peritoneal carcinomatosis and 2.2 cm left hepatic lobe lesion suspicious for metastatic disease. Plan: Discussed patient with Dr. Prado and Dr. Hernandez. Unfortunately patient has chronic abdominal pain given abdominal carcinomatosis and concern for metastatic disease. He was improving with advancement of diet until mid week when he had increasing pain post prandial and decreasing bowel function. Discussed with patient that we want to get him through this acute phase with conservative measures if possible (NPO, NGT with any vomiting, and pain management) and then advance his diet to clear liquids whilst continuing TPN for nutrition support. As discussed with Dr. Prado given patient's current situation, would agree with keeping patient on clear liquids and home TPN once discharged until definitive treatment plans are established by oncology team. In the situation where patient clinically warrants surgical intervention, would recommend transfer to tertiary center. Would recommend start back Dilaudid [employer]PUT[employer] for pain management Would keep NPO as patient is distended and + nausea NGT with any vomiting Encourage oob to chair and ambulate Discussed patient with Dr. Hernandez who agrees with above. (2) Colon cancer: Subjective +nauseated, no vomiting passing small amounts of gas here and there but not as much as earlier in the week no bowel movement since two days ago and small +abdominal pain, asking for Dilaudid [employer] for better pain control (states he falls asleep and then wakes up and is in severe pain) Physical Exam 2 Vital Signs (Past 24 Hours): Last Vital Signs Temp 37 C 10/20/18 07:28 Pulse 122 H 10/20/18 07:28 Resp 16 10/20/18 07:28 BP 98/64 L 10/20/18 07:28 Pulse Ox 99 10/20/18 07:28 Constitutional: + thin; no acute distress, not ill appearing and no altered mental status Respiratory: no respiratory distress, no labored breathing and no retractions Gastrointestinal (Abdomen): Inspection/Auscultation: + abdomen distended and normal bowel sounds (hyperactive bowel sounds) Percussion/Palpation: + abdomen tender (RUQ and RLQ); no guarding and abdomen not rigid Skin: no rashes, warm and dry Psychiatric: A+Ox3, euthymic affect Results & Data Diagnostic Findings ABDOMEN AND PELVIS CT WITH IV AND ORAL CONTRAST CT DOSE: 284.15 mGy.cm HISTORY: Acute generalized abdominal pain with history of colon cancer and metastatic peritoneal carcinomatosis. abdominal pain /peritoneal carcinomatosis -colon ca TECHNIQUE: Multiaxial CT images of the abdomen and pelvis were performed following the use of intravenous and oral contrast. A dose lowering technique was utilized adhering to the principles of ALARA. COMPARISON STUDY: Acute abdominal series radiographs 10/15/2018, CT abdomen and pelvis 10/08/2018 and 01/15/2018. FINDINGS: The imaged lung bases are generally clear. There is no pneumatosis or pneumoperitoneum identified. The imaged inferior cardiac chambers appear unremarkable. Prior cholecystectomy with likely postsurgical mild intrahepatic and extrahepatic biliary ductal dilation. Indeterminate 2.2 x 2.0 cm ill-defined hypodense lesion involves segment 4 of the liver, image 122 series 3. No additional focal hepatic mass lesions identified. The spleen, pancreas and adrenal glands appear unremarkable. 4 mm nonobstructing calculus of the inferior pole right kidney. Kidneys and ureters are otherwise unremarkable. Coarse calcifications noted about the central prostate. Urinary bladder is unremarkable. Aorta and IVC are within normal limits. Air-filled distal esophagus. Layering hyperdense material noted within the gastric lumen. Multiple dilated air and fluid-filled loops of small bowel are seen measuring up to 4.0 cm transversely. Hyperdense material within the abdominal right upper quadrant adjacent to the anterior peritoneal surface redemonstrated with adjacent decompressed loops of small bowel seen within this area. Trace amount of pelvic ascites. 2.5 cm soft tissue nodule anterior to the rectum redemonstrated. 3.5 x 3.0 cm soft tissue lesion of the right lower quadrant mesentery, image 219 series 3 redemonstrated. Bilateral gynecomastia with generalized body wall edema. Bones appear to be intact. No suspicious lytic or blastic bony lesions identified. IMPRESSION: 1. Multiple dilated air and fluid-filled loops of small bowel throughout the abdomen and pelvis suggest ongoing small bowel obstruction, definite transition point is not definitively identified. Soft tissue thickening with hyperdense material about the abdominal right upper quadrant is again seen suggesting surgical suture material. Mild adjacent decompressed loops of bowel within this area may reflect transition point. Continued follow-up recommended. 2. No pneumatosis or pneumoperitoneum. 3. Heterogeneous soft tissue lesion of the right lower quadrant suggests jose metastasis with additional 2.5 cm soft tissue lesion of the presacral distribution suggestive of jose metastasis or peritoneal carcinomatosis. 4. 2.2 cm left hepatic lobe lesion is also suspicious for possible metastatic disease. _ (1) Colon cancer Colon location: transverse Qualified Code(s): C18.4 - Malignant neoplasm of transverse colon
[2018-10-20] MEDS ORDERED: NALOXONE HCL 0.4 MG/1 ML VIAL/CARP IV PRN (10:08)
[2018-10-20] MEDS ORDERED: TPN/PPN CONSULT PHARMACY PRN (10:10)
[2018-10-20 11:01] LABS: Blood Urea Nitrogen 16 mg/dl (7-18); Calcium 7.9 mg/dl (8.5-10.1); Carbon Dioxide 29 mmol/L (21-32); Chloride 104 mmol/L (98-107); Creatinine Clr Calc Pharmacy 158.1 ml/min; Est GFR (African American) > 150.0; Glucose 116 mg/dl (70-99); Magnesium 1.7 mg/dl (1.8-2.4); Phosphorus 4.2 mg/dl (2.5-4.9); Potassium 3.7 mmol/L (3.5-5.1); Sodium 137 mmol/L (136-145)
[2018-10-20] MEDS: HYDROmorphone HCL 0.5MG/ML 50 ML CASSETTE IV PRN (11:01)
[2018-10-20] MEDS: SODIUM CHLORIDE 0.9% 1000ML 1,000 ML IV SCH (11:20)
[2018-10-20] MEDS ORDERED: TPN/PPN CONSULT PHARMACY STA (11:26)
--- NOTE | 2018-10-20 14:23 | Pharmacy Report ---
Pharmacy PN Initial Consult - Date of Service October 20, 2018 - Scope Pharmacy has been consulted to manage parenteral nutrition orders and order appropriate labs. As part of the Nutrition Support Team guidelines, pharmacy will work in conjunction with dietary when determining the patients caloric needs. - Subjective The patient is a 33 year old M admitted on 10/08/18 18:25 for SMALL BOWEL OBSTRUCTION. Patient is to receive parenteral nutrition for SBO secondary to metastatic colon cancer and peritoneal carinomatosis. SBO was resolving and patient was previously on TPN 10/10 - 10/17 , but patient has developed increasing pain post prandial with inability to eat without discomfort and decreased bowel function, decreased flatus. - Objective Height: 5 ft 10 in Weight: 60.7 kg Diet: Clear Liquid Intake & Output (Last 24Hrs): Intake & Output 10/18/18 10/19/18 10/20/18 10/21/18 06:59 06:59 06:59 06:59 Intake Total 100 / 100 1334.75 / 1334.75 2633.05 / 2633.05 761.333 / 761.333 Balance 100 / 100 1334.75 / 1334.75 2633.05 / 2633.05 761.333 / 761.333 Weight 59.5 kg 60.6 kg 60.7 kg 60.7 kg Laboratory Data (Last 24 Hrs):: 10/20/18 10/20/18 10:32 10:32 Sodium 137 Potassium 3.7 Chloride 104 Carbon Dioxide 29 BUN 16 Creatinine 0.56 L Glucose 116 H Calcium 7.9 L Phosphorus 4.2 Magnesium 1.7 L Nutrition Assessment:: Please refer to the Notes section of the EMR for the most recent keyboarding clerk note. - Assessment Per surgery, they discussed with patient that we want to get him through this acute phase with conservative measures if possible (NPO, NGT with any vomiting, and pain management) and then advance his diet to clear liquids whilst continuing TPN for nutrition support. As discussed with Dr. Prado given patient's current situation, would agree with keeping patient on clear liquids and home TPN once discharged until definitive treatment plans are established by oncology team. - Plan For day 1 of PN administration, the following will be ordered: Macronutrients Amino acids 90 grams/day - goal 95 gram/day while NPO Dextrose 100 grams/day - goal 200grams/day, while NPO Lipids 25 grams - goal 50grams/day, while NPO Micronutrients Combined electrolytes 20 mL - contains 35 mEq Na, 20 meq K, 4.5 mEq Ca, 5 mEq Mg , 35 mEq Cl, 29.5 mEq acetate per 20 mL Sodium phosphate 15 MMol Magnesium sulfate 8.12 mEq Calcium gluconate 4.65 mEq Multivitamins 10 mL Trace Elements 10 mL Total volume 2400 mL to be infused over 24 hrs will provide 950 kcal/day Labs to be ordered per PN order protocol Pharmacy will follow and adjust parenteral nutrition orders on a daily basis. Thank you.
[2018-10-20] MEDS: SCOPOLAMINE 1.5 MG TDSY TD SCH (15:05)
[2018-10-20] MEDS ORDERED: DEXTROSE 10% 1,000 ML IV SCH (16:00)
[2018-10-20] MEDS ORDERED: CUSTOM CENTRAL PN IV SCH (16:00)
[2018-10-20] MEDS: CHECK SCOPOLAMINE PATCH PLACEMENT SCH (16:43)
--- NOTE | 2018-10-20 18:44 | Hospitalist Progress Note ---
Date of Service October 20, 2018 Assessment & Plan (1) SBO (small bowel obstruction): recurrent small bowel obstruction due to metastatic colon Ca repeat CT abdomen /pelvis 10/19/18 : 1. Multiple dilated air and fluid-filled loops of small bowel throughout the abdomen and pelvis suggest ongoing small bowel obstruction, definite transition point is not definitively identified. Soft tissue thickening with hyperdense material about the abdominal right upper quadrant is again seen suggesting surgical suture material. Mild adjacent decompressed loops of bowel within this area may reflect transition point. Continued follow-up recommended. 2. No pneumatosis or pneumoperitoneum. 3. Heterogeneous soft tissue lesion of the right lower quadrant suggests jose metastasis with additional 2.5 cm soft tissue lesion of the presacral distribution suggestive of jose metastasis or peritoneal carcinomatosis. 4. 2.2 cm left hepatic lobe lesion is also suspicious for possible metastatic disease. ordered for NPO , IV fluids , pain control with IV meds NG tube not ordered as not active vomiitng noted Surgery updated appreciate input, will attempt conservative management with bowels rest, TPN resumed, pain management with IV Dilaudid [employer] Presented with abdominal pain and nausea/vomiting -small bowel obstruciton History of colon cancer, status post partial colectomy, now with peritoneal carcinomatosis. CT abdomen in admussion demonstrated small bowel obstruction with transition point in the right upper quadrant. General Surgery consultation obtained. Managed with bowel rest, NG tube, IV fluids, TPN. Started passing flatus and then some stool. NG tube clamped and removed. Started on clear liquids; advanced to full liquids to solid cont to have intermittent severe pain. repeat CT finding as above : recurrence of SBO. (2) Abdominal pain: due to above -SBO bowel rest , NPO ,IV fluid Does not have any active vomiting, complains of nausea, patient ordered scheduled Compazine IV for any consideration of surgery for bowel obstruction -pt will need to be tx to Tertiary care surgery following Appreciate input (3) Protein calorie malnutrition: Inadequate PO intake due to bowel obstruction and underlying malignancy. Nutrition consulted. ordered for NPO for recurrent bowel obstruction TPN resumed, patient may need to be discharged on chronic TPN Expected to oral/p.o. intake went to be very poor recurrent small bowel obstruction overall prognosis remains poor (4) Sinus tachycardia: possible due to SBO /abdominal pain cont Iv fluid , pain control No evidence of pulmonary embolism on CTA of chest. 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 CT of abdomen and pelvis during this admission showed bowel obstruction as discussed above as well as trace ascites, ill-defined soft tissue anterior to the rectum worrisome for neoplastic process, 3.4 cm ileocolic mass (possible jose metastases), 2.2 cm hepatic lesion. Management per Medical Oncology. (7) Abnormal screening computed tomography (CT) of chest: CTA of chest performed to rule out pulmonary embolism. No evidence of PE. Multiple ill-defined nodules were noted in the superior segment of the left lower lobe suggesting possible infectious process. Pulmonary nodules may be secondary to metastatic colon cancer. (8) DVT prophylaxis: SCD's ordered. holD SQ Lovenox for repeated SBO (9) Discharge planning issues: CODE STATUS: Full code Anticipated discharge to home. Family Medicine follow-up with Dr. Payne. Medical Oncology follow-up with Dr. Josué Montalvo. updated at bedside Subjective CT abdomen pelvis shows recurrent obstruction, patient made n.p.o., IV Dilaudid started for intractable abdominal pain, case discussed with surgery, no plan for surgical procedure, to high risk with metastatic peritoneal carcinomatosis, for any surgical procedure patient is to be transferred to tertiary care [facility] At present will attempt should be made to resolution of bowel obstruction conservatively, patient remains afebrile, vital stable Physical Exam 2 Vital Signs (Past 24 Hours): Last Vital Signs Temp 36.8 C 10/20/18 14:50 Pulse 113 H 10/20/18 14:50 Resp 20 10/20/18 14:50 BP 103/69 10/20/18 14:50 Pulse Ox 97 10/20/18 14:50 Constitutional: + ill appearing, + thin, + cachectic and + in distress (Due to abdominal pain mostly localized to right upper quadrant) Eyes: PERRL, conjunctivae normal, anicteric sclerae ENMT: external ear and nose normal, oropharynx normal Mouth: + dry oral mucous membranes (NG tube present, draining dark bilious gastric drainage) Respiratory: normal respiratory effort, lungs clear to auscultation Cardiovascular: Rate/Rhythm: regular rate, regular rhythm and + tachycardic ( Sinus tachycardia heart rate in the 110s) Vessels: normal peripheral pulses Extremities: no edema Gastrointestinal (Abdomen): Inspection/Auscultation: + abdominal surgical scar (healed laparoscopic scar /mid abdominal exp lap healed surgical scar ); abdomen not distended (flat) Percussion/Palpation: + abdomen tender ( diffusely tender ), + guarding, + abdomen rigid, abdomen soft and + hepatosplenomegaly Musculoskeletal: no cyanosis or clubbing, extremities motor strength 5/5 Skin: no rashes, warm and dry Neurologic: PERRL, EOMI, accommodation nl, no face palsy, no dysarthria Psychiatric: A+Ox3, euthymic affect Orientation: alert and oriented x 3 Eye Contact: good eye contact Affect: + depressed affect _ (1) Colon cancer Colon location: transverse Qualified Code(s): C18.4 - Malignant neoplasm of transverse colon (2) Abdominal pain Abdominal location: right lower quadrant Qualified Code(s): R10.31 - Right lower quadrant pain (3) Protein calorie malnutrition Protein-calorie malnutrition severity: moderate Qualified Code(s): E44.0 - Moderate protein-calorie malnutrition
[2018-10-21] MEDS: CHECK SCOPOLAMINE PATCH PLACEMENT SCH ×3 (00:32→15:58)
[2018-10-21] MEDS: PROCHLORPERAZINE 10 MG in SYRINGE 8 ML IV SCH ×7 (00:32→23:56)
[2018-10-21] MEDS: ONDANSETRON INJ 2 MG/ML 2 ML VIAL IV PRN ×3 (06:15→20:13)
[2018-10-21 10:06] LABS: BUN Creatinine Ratio 42.6 (10-20); Blood Urea Nitrogen 21 mg/dl (7-18); Calcium 7.9 mg/dl (8.5-10.1); Carbon Dioxide 28 mmol/L (21-32); Chloride 102 mmol/L (98-107); Creatinine Clr Calc Pharmacy 187.2 ml/min; Est GFR (African American) > 150.0; Est GFR (Non-African American) 142.8; Glucose 139 mg/dl (70-99); Magnesium 2.1 mg/dl (1.8-2.4); Potassium 3.7 mmol/L (3.5-5.1); Sodium 136 mmol/L (136-145)
[2018-10-21 10:11] LABS: Phosphorus 3.5 mg/dl (2.5-4.9)
[2018-10-21] MEDS: SODIUM CHLORIDE 0.9% 1000ML 1,000 ML IV SCH (12:01)
[2018-10-21] MEDS ORDERED: CUSTOM CENTRAL PN IV SCH (16:00)
--- NOTE | 2018-10-21 17:29 | Hospitalist Progress Note ---
Date of Service October 21, 2018 Assessment & Plan (1) SBO (small bowel obstruction): recurrent small bowel obstruction due to metastatic colon Ca repeat CT abdomen /pelvis 10/19/18 : 1. Multiple dilated air and fluid-filled loops of small bowel throughout the abdomen and pelvis suggest ongoing small bowel obstruction, definite transition point is not definitively identified. Soft tissue thickening with hyperdense material about the abdominal right upper quadrant is again seen suggesting surgical suture material. Mild adjacent decompressed loops of bowel within this area may reflect transition point. Continued follow-up recommended. 2. No pneumatosis or pneumoperitoneum. 3. Heterogeneous soft tissue lesion of the right lower quadrant suggests jose metastasis with additional 2.5 cm soft tissue lesion of the presacral distribution suggestive of jose metastasis or peritoneal carcinomatosis. 4. 2.2 cm left hepatic lobe lesion is also suspicious for possible metastatic disease. Ordered for bowel rest, TPN, attempt conservative approach for spontaneous resolution of obstruction, and any evidence of clinical decline patient will be transferred to tertiary care for surgical intervention, appreciate input from surgery Presented with abdominal pain and nausea/vomiting -small bowel obstruciton History of colon cancer, status post partial colectomy, now with peritoneal carcinomatosis. CT abdomen in admussion demonstrated small bowel obstruction with transition point in the right upper quadrant. General Surgery consultation obtained. Managed with bowel rest, NG tube, IV fluids, TPN. Started passing flatus and then some stool. NG tube clamped and removed. Started on clear liquids; advanced to full liquids to solid cont to have intermittent severe pain. repeat CT finding as above : recurrence of SBO. (2) Abdominal pain: due to above -SBO bowel rest , NPO ,IV fluid Started back on TPN for any consideration of surgery for bowel obstruction -pt will need to be tx to Tertiary care surgery following (3) Protein calorie malnutrition: Inadequate PO intake due to bowel obstruction and underlying malignancy. Nutrition consulted. Continue TPN, patient is highly likely to to be discharged home on TPN ordered for NPO for recurrent bowel obstruction overall prognosis remains poor (4) Sinus tachycardia: Improved possible due to SBO /abdominal pain cont Iv fluid , pain control No evidence of pulmonary embolism on CTA of chest. 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 CT of abdomen and pelvis during this admission showed bowel obstruction as discussed above as well as trace ascites, ill-defined soft tissue anterior to the rectum worrisome for neoplastic process, 3.4 cm ileocolic mass (possible jose metastases), 2.2 cm hepatic lesion. Management per Medical Oncology. (7) Abnormal screening computed tomography (CT) of chest: CTA of chest performed to rule out pulmonary embolism. No evidence of PE. Multiple ill-defined nodules were noted in the superior segment of the left lower lobe suggesting possible infectious process. Pulmonary nodules may be secondary to metastatic colon cancer. (8) DVT prophylaxis: SCD's ordered. hols SQ Lovenox for repeated SBO (9) Discharge planning issues: CODE STATUS: Full code Anticipated discharge to home. Family Medicine follow-up with Dr. Payne. Medical Oncology follow-up with Dr. Josué Montalvo. Subjective Patient remains n.p.o., no vomiting episode, complains of persistent nausea Abdominal pain better with IV Dilaudid [employer] getting PPN Able to pass gas, no bowel movement yet Physical Exam 2 Vital Signs (Past 24 Hours): Last Vital Signs Temp 37.0 C 10/21/18 16:06 Pulse 112 H 10/21/18 16:06 Resp 16 10/21/18 16:06 BP 120/80 10/21/18 16:06 Pulse Ox 98 10/21/18 16:06 Constitutional: + ill appearing, + thin, + cachectic and + in distress (Due to abdominal pain mostly localized to right upper quadrant) Eyes: PERRL, conjunctivae normal, anicteric sclerae ENMT: external ear and nose normal, oropharynx normal Mouth: + dry oral mucous membranes (NG tube present, draining dark bilious gastric drainage) Respiratory: normal respiratory effort, lungs clear to auscultation Cardiovascular: Rate/Rhythm: regular rate, regular rhythm and + tachycardic ( Sinus tachycardia heart rate in the 110s) Vessels: normal peripheral pulses Extremities: no edema Gastrointestinal (Abdomen): Inspection/Auscultation: + abdominal surgical scar (healed laparoscopic scar /mid abdominal exp lap healed surgical scar ) and + hypoactive bowel sounds; abdomen not distended (flat) Percussion/ Palpation: + abdomen tender (diffusely tender ), + guarding, abdomen soft and + hepatosplenomegaly Musculoskeletal: no cyanosis or clubbing, extremities motor strength 5/5 Skin: no rashes, warm and dry Neurologic: PERRL, EOMI, accommodation nl, no face palsy, no dysarthria Psychiatric: A+Ox3, euthymic affect Orientation: alert and oriented x 3 Eye Contact: good eye contact Affect: + depressed affect _ (1) Colon cancer Colon location: transverse Qualified Code(s): C18.4 - Malignant neoplasm of transverse colon (2) Abdominal pain Abdominal location: right lower quadrant Qualified Code(s): R10.31 - Right lower quadrant pain (3) Protein calorie malnutrition Protein-calorie malnutrition severity: moderate Qualified Code(s): E44.0 - Moderate protein-calorie malnutrition
[2018-10-22] MEDS: CHECK SCOPOLAMINE PATCH PLACEMENT SCH ×4 (00:06→23:57)
[2018-10-22] MEDS: ONDANSETRON INJ 2 MG/ML 2 ML VIAL IV PRN ×2 (01:59→11:46)
[2018-10-22] MEDS: PROCHLORPERAZINE 10 MG in SYRINGE 8 ML IV SCH ×4 (05:40→23:56)
[2018-10-22] MEDS: HYDROmorphone HCL 0.5MG/ML 50 ML CASSETTE IV PRN (07:50)
[2018-10-22 08:01] LABS: BUN Creatinine Ratio 30.7 (10-20); Blood Urea Nitrogen 16 mg/dl (7-18); Calcium 7.8 mg/dl (8.5-10.1); Carbon Dioxide 30 mmol/L (21-32); Chloride 101 mmol/L (98-107); Creatinine Clr Calc Pharmacy 176.1 ml/min; Est GFR (African American) > 150.0; Est GFR (Non-African American) 138.2; Glucose 115 mg/dl (70-99); Magnesium 2.2 mg/dl (1.8-2.4); Potassium 3.3 mmol/L (3.5-5.1); Sodium 137 mmol/L (136-145)
[2018-10-22 08:02] LABS: Phosphorus 3.6 mg/dl (2.5-4.9)
[2018-10-22] MEDS: SODIUM CHLORIDE 0.9% 1000ML 1,000 ML IV SCH (11:46)
--- NOTE | 2018-10-22 12:19 | Hospitalist Progress Note ---
Date of Service October 22, 2018 Assessment & Plan (1) SBO (small bowel obstruction): Symptoms has improved, minimum abdominal pain, minimum nausea, no vomiting, able to pass gas Continue bowel rest with n.p.o., parenteral nutrition with TPN recurrent small bowel obstruction due to metastatic colon Ca repeat CT abdomen /pelvis 10/19/18 : 1. Multiple dilated air and fluid-filled loops of small bowel throughout the abdomen and pelvis suggest ongoing small bowel obstruction, definite transition point is not definitively identified. Soft tissue thickening with hyperdense material about the abdominal right upper quadrant is again seen suggesting surgical suture material. Mild adjacent decompressed loops of bowel within this area may reflect transition point. Continued follow-up recommended. 2. No pneumatosis or pneumoperitoneum. 3. Heterogeneous soft tissue lesion of the right lower quadrant suggests jose metastasis with additional 2.5 cm soft tissue lesion of the presacral distribution suggestive of jose metastasis or peritoneal carcinomatosis. 4. 2.2 cm left hepatic lobe lesion is also suspicious for possible metastatic disease. Ordered for bowel rest, TPN, attempt conservative approach for spontaneous resolution of obstruction, and any evidence of clinical decline patient will be transferred to tertiary care for surgical intervention, appreciate input from surgery Presented with abdominal pain and nausea/vomiting -small bowel obstruciton History of colon cancer, status post partial colectomy, now with peritoneal carcinomatosis. CT abdomen in admussion demonstrated small bowel obstruction with transition point in the right upper quadrant. General Surgery consultation obtained. Managed with bowel rest, NG tube, IV fluids, TPN. Started passing flatus and then some stool. NG tube clamped and removed. Started on clear liquids; advanced to full liquids to solid cont to have intermittent severe pain. repeat CT finding as above : recurrence of SBO. (2) Abdominal pain: Improved due to above -SBO bowel rest , NPO ,IV fluid Continue TPN for any consideration of surgery for bowel obstruction -pt will need to be tx to Tertiary care surgery following (3) Protein calorie malnutrition: Inadequate PO intake due to bowel obstruction and underlying malignancy. Nutrition consulted. Continue TPN, patient is highly likely to to be discharged home on TPN ordered for NPO for recurrent bowel obstruction overall prognosis remains poor (4) Sinus tachycardia: Improved possible due to SBO /abdominal pain cont Iv fluid , pain control No evidence of pulmonary embolism on CTA of chest. 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 CT of abdomen and pelvis during this admission showed bowel obstruction as discussed above as well as trace ascites, ill-defined soft tissue anterior to the rectum worrisome for neoplastic process, 3.4 cm ileocolic mass (possible jose metastases), 2.2 cm hepatic lesion. Management per Medical Oncology. (7) Abnormal screening computed tomography (CT) of chest: CTA of chest performed to rule out pulmonary embolism. No evidence of PE. Multiple ill-defined nodules were noted in the superior segment of the left lower lobe suggesting possible infectious process. Pulmonary nodules may be secondary to metastatic colon cancer. (8) DVT prophylaxis: SCD's ordered. hols SQ Lovenox for repeated SBO (9) Discharge planning issues: CODE STATUS: Full code Anticipated discharge to home. Family Medicine follow-up with Dr. Payne. Medical Oncology follow-up with Dr. Josué Montalvo. Subjective Reports of improvement of abdominal pain, still having episodes of spasm, Nausea has improved, no vomiting Able to pass gas, No bowel movement Patient is continued with TPN, remains n.p.o. Physical Exam 2 Vital Signs (Past 24 Hours): Last Vital Signs Temp 36.9 C 10/22/18 11:43 Pulse 111 H 10/22/18 11:43 Resp 18 10/22/18 11:43 BP 126/82 10/22/18 11:43 Pulse Ox 99 10/22/18 11:43 Constitutional: + ill appearing, + thin and + cachectic Eyes: PERRL, conjunctivae normal, anicteric sclerae ENMT: external ear and nose normal, oropharynx normal Respiratory: normal respiratory effort, lungs clear to auscultation Cardiovascular: Rate/Rhythm: regular rate and regular rhythm Vessels: normal peripheral pulses Extremities: no edema Gastrointestinal (Abdomen): Inspection/Auscultation: normal bowel sounds ( minimal), + abdominal surgical scar (healed laparoscopic scar /mid abdominal exp lap healed surgical scar ) and + hypoactive bowel sounds; abdomen not distended (flat) Percussion/Palpation: abdomen soft Musculoskeletal: no cyanosis or clubbing, extremities motor strength 5/5 Skin: no rashes, warm and dry Neurologic: PERRL, EOMI, accommodation nl, no face palsy, no dysarthria Psychiatric: A+Ox3, euthymic affect Orientation: alert and oriented x 3 Eye Contact: good eye contact _ (1) Colon cancer Colon location: transverse Qualified Code(s): C18.4 - Malignant neoplasm of transverse colon (2) Abdominal pain Abdominal location: right lower quadrant Qualified Code(s): R10.31 - Right lower quadrant pain (3) Protein calorie malnutrition Protein-calorie malnutrition severity: moderate Qualified Code(s): E44.0 - Moderate protein-calorie malnutrition
[2018-10-22] MEDS ORDERED: CUSTOM CENTRAL PN IV SCH (16:00)
[2018-10-22 18:33] LABS: Appearance Urine Turbid (Clear); Bacteria Urine Automated Negative (Negative); Bilirubin Urine Negative (Negative); Blood Urine Negative (Negative); Color Urine Yellow; Epithelial Cell Urine Auto 0-5 /lpf (0-5); Glucose Urine UA Negative (Negative); Ketones Urine Negative (Negative); Leukocyte Esterase Urine Negative (Negative); Nitrite Urine Negative (Negative); Protein Urine Negative (Negative); RBC Urine Automated 0-4 /hpf (0-4); Specific Gravity Urine 1.015 (1.000-1.030); Urobilinogen Urine Negative (Negative)
[2018-10-23] MEDS: ONDANSETRON INJ 2 MG/ML 2 ML VIAL IV PRN ×2 (06:40→17:00)
[2018-10-23] MEDS: PROCHLORPERAZINE 10 MG in SYRINGE 8 ML IV SCH ×4 (06:41→23:13)
[2018-10-23] MEDS: CHECK SCOPOLAMINE PATCH PLACEMENT SCH ×3 (07:25→23:13)
[2018-10-23 09:42] LABS: BUN Creatinine Ratio 28.1 (10-20); Blood Urea Nitrogen 11 mg/dl (7-18); Calcium 7.5 mg/dl (8.5-10.1); Carbon Dioxide 27 mmol/L (21-32); Chloride 105 mmol/L (98-107); Est GFR (African American) > 150.0; Est GFR (Non-African American) > 150.0; Glucose 114 mg/dl (70-99); Potassium 3.4 mmol/L (3.5-5.1); Sodium 137 mmol/L (136-145)
[2018-10-23 09:43] LABS: Phosphorus 3.5 mg/dl (2.5-4.9)
--- NOTE | 2018-10-23 09:46 | Pain Management Progress Note ---
Date of Service October 23, 2018 Assessment & Plan (1) Colon cancer: 1. 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 Orders are written. Pending efficacy of 50 mcg fentanyl patch will plan to readjust overall narcotic volume tomorrow morning. 2. Once patient is able to tolerate p.o. consider utilizing hydromorphone 2 mg p.o. every 3hr versus Roxanol 5 mg p.o. every 4hr as needed breakthrough pain. 3. I spoke with the patient at length about consideration of diagnostic celiac plexus block to diminish visceral pain. Should he have good relief with the diagnostic block would consider neurolysis in the future for longer lasting relief. He was provided with paper information regarding these blocks and will let me know tomorrow morning if this is of interest to him. 4. Once able to tolerate p.o. consider initiation of Cymbalta versus nortriptyline to augment descending pain regulation. 5. 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 He is status post partial colectomy a with a small bowel obstruction on TPN only for nutrition. He was initially seen by pain management on 10/19/2018 and the hydromorphone WOOL WASHING MACHINE OPERATOR was discontinued with increasing pain and subsequently restarted. He is experiencing nausea and decreased appetite. He describes a sharp spasming pain with associated bloating ranging between 2 and 7 out of 10 located over the right upper and lower quadrants with some radiation to his thoracolumbar spine. He has utilized hydromorphone 6 mg of as needed dosing and 12 mg of continuous WOOL WASHING MACHINE OPERATOR over the last 24 hours. He denies any side effects from the hydromorphone. Upon questioning he denies any side effects from his fentanyl patch. He did report some vivid dreams but attributed it to antinausea medication rather than fentanyl patch. Previous interventions over the last 2 months from oncology including Tramadol, Percocet, and MS Contin. Review of Systems Constitutional: Negative for fever, chills, sweats Eyes: Negative for eye pain, photophobia, drainage Ear, nose, mouth, throat: Negative for ear pain, nasal congestion, mouth lesions , change in voice Respiratory: Negative for wheezing, sputum production Cardiovascular: Negative for chest pain, palpitations, calf pain Gastrointestinal: Positive for abdominal pain and bloating Genitourinary: Negative for dysuria, urinary incontinence, urinary urgency Musculoskeletal: Negative for deformities Integumentary: Negative for nail changes, skin yellowing, pruritus Neurological: Negative for abnormal speech, seizure type activity Pain Assessment Pain Assessment Full Body Front + Back: 2 1. 2. 3. [facility] Combined Pain Scale: 5-Moderate - Cannot perform normal tasks without increase in pain Pain scale - at its best (0-10): 2 Pain scale - at its worst (0-10): 7 Physical Exam 2 Vital Signs (Past 24 Hours): Last Vital Signs Temp 36.5 C 10/23/18 07:19 Pulse 89 10/23/18 07:19 Resp 18 10/23/18 07:19 BP 126/83 10/23/18 07:19 Pulse Ox 98 10/23/18 07:19 Physical Exam: Constitutional: Thin and deconditioned Psych: Awake, alert, and oriented 3 with normal affect and mood. Recent memory appears grossly intact Eyes: Pupils are equally round and reactive to light with normal size pupils, eyelids appear normal Ear, nose, mouth, and throat: Moist nasal and oral membranes, lips and tongues appear normal, no external ear abnormalities are noted Neck: The trachea is midline without deviation and no thyromegaly is noted Respiratory: Normal respiratory effort without distress, no audible wheezes or rhonchi CV: Normal S1 and S2 Chest: Unremarkable GI/abdomen: Abdomen is tender over the right upper and lower quadrants to palpation without rebound. Midepigastric tenderness is noted as well. There are well-healing port sites of a prior cholecystectomy with a well-healed midline surgical incision Musculoskeletal: Head is normocephalic and atraumatic, gait was not observed Cervical: Lordotic curve: Normal Range of motion is normal with extension, flexion, side-bending, rotation Strength: Strength is equal bilaterally with 5 out of 5 strength in all planes Thoracic: Kyphotic curve: Normal Range of motion is normal with extension, flexion, side-bending, rotation Lumbar: Lordotic curve: Normal Range of motion is normal with extension, flexion, side-bending, rotation Tenderness: Moderately tender over the axial midline right greater than left between T12 and L3 approximately Facet provocation: Negative bilaterally Straight leg raise: Negative bilaterally Strength: Strength is grossly equal bilaterally with 5 out of 5 strength in all planes Sensation of lower extremities: Intact bilaterally Myofascial spasm: Mild spasm noted over the thoracolumbar paravertebral spinous musculature. No discrete trigger points noted Skin: No rashes, lesions, ulcers, or induration noted. Mediport is accessed and in situ Neuro: No nystagmus noted, the tongue is midline, the patient is able to rotate their head bilaterally : Deferred Results & Data Laboratory Results Laboratory Tests 10/14/18 10/17/18 10/22/18 14:54 06:30 18:00 WBC 6.27 Plt Count 264 INR 1.0 BUN Creatinine Glucose Ur Leukocyte Esterase Negative Urine Bacteria (Auto) Negative 10/23/18 08:32 WBC Plt Count INR BUN 11 Creatinine 0.41 L Glucose 114 H Ur Leukocyte Esterase Urine Bacteria (Auto) Diagnostic Findings Patient: JOVI MORALES Date: 10/08/18 MR#: [id number]: [address] [facility] Acct ID:[id number]: Date: [address] Zip: [place] [address] Age: 33Location: 4E Sex: M Room/Bed: [facility] Att Phy: Pamela Prado M.D.Diagnosis: SMALL BOWEL OBSTRUCTION Chen Phy: Natalie Payne Service Date: 10/19/18 Fam Phy: Natalie Payne Interpreting Phy: Thang Ortega Admit Phy: Pamela Prado M.D. Ordering Phy: Pamela Prado M.D. cc: ~ ABDOMEN AND PELVIS CT WITH IV AND ORAL CONTRAST CT DOSE: 284.15 mGy.cm HISTORY: Acute generalized abdominal pain with history of colon cancer and metastatic peritoneal carcinomatosis. abdominal pain /peritoneal carcinomatosis -colon ca TECHNIQUE: Multiaxial CT images of the abdomen and pelvis were performed following the use of intravenous and oral contrast. A dose lowering technique was utilized adhering to the principles of CALOS. COMPARISON STUDY: Acute abdominal series radiographs 10/15/2018, CT abdomen and pelvis 10/08/2018 and 01/15/2018. FINDINGS: The imaged lung bases are generally clear. There is no pneumatosis or pneumoperitoneum identified. The imaged inferior cardiac chambers appear unremarkable. Prior cholecystectomy with likely postsurgical mild intrahepatic and extrahepatic biliary ductal dilation. Indeterminate 2.2 x 2.0 cm ill-defined hypodense lesion involves segment 4 of the liver, image 122 series 3. No additional focal hepatic mass lesions identified. The spleen, pancreas and adrenal glands appear unremarkable. 4 mm nonobstructing calculus of the inferior pole right kidney. Kidneys and ureters are otherwise unremarkable. Coarse calcifications noted about the central prostate. Urinary bladder is unremarkable. Aorta and IVC are within normal limits. Air-filled distal esophagus. Layering hyperdense material noted within the gastric lumen. Multiple dilated air and fluid-filled loops of small bowel are seen measuring up to 4.0 cm transversely. Hyperdense material within the abdominal right upper quadrant adjacent to the anterior peritoneal surface redemonstrated with adjacent decompressed loops of small bowel seen within this area. Trace amount of pelvic ascites. 2.5 cm soft tissue nodule anterior to the rectum redemonstrated. 3.5 x 3.0 cm soft tissue lesion of the right lower quadrant mesentery, image 219 series 3 redemonstrated. Bilateral gynecomastia with generalized body wall edema. Bones appear to be intact. No suspicious lytic or blastic bony lesions identified. IMPRESSION: 1. Multiple dilated air and fluid-filled loops of small bowel throughout the abdomen and pelvis suggest ongoing small bowel obstruction, definite transition point is not definitively identified. Soft tissue thickening with hyperdense material about the abdominal right upper quadrant is again seen suggesting surgical suture material. Mild adjacent decompressed loops of bowel within this area may reflect transition point. Continued follow-up recommended. 2. No pneumatosis or pneumoperitoneum. 3. Heterogeneous soft tissue lesion of the right lower quadrant suggests jose metastasis with additional 2.5 cm soft tissue lesion of the presacral distribution suggestive of jose metastasis or peritoneal carcinomatosis. 4. 2.2 cm left hepatic lobe lesion is also suspicious for possible metastatic disease.
[2018-10-23] MEDS ORDERED: fentaNYL 50 MCG/HR TDSY TD SCH (10:00)
[2018-10-23] MEDS: SODIUM CHLORIDE 0.9% 1000ML 1,000 ML IV SCH ×2 (10:22→20:57)
--- NOTE | 2018-10-23 10:53 | XRay Report ---
KUB HISTORY: Acute abdominal pain with reported small bowel obstruction. Follow-up study. small bowel ob struction COMPARISON: CT abdomen pelvis 10/19/2018. FINDINGS: Prior cholecystectomy. Surgical suture material again noted about the abdominal right upper quadrant. Air is noted within the stomach, small and large bowel with moderate degree of formed stoo l seen about the right hemicolon. Dilated loops of air-filled small bowel are again seen measuring up to 4.67 m transversely about the left abdomen. No pneumatosis or pneumoperitoneum identified. No def inite urolith or acute fracture. IMPRESSION: 1. Air distended loops of small bowel redemonstrated, however air is also also noted within the large bowel. Findings suggest partial small bowel obstruction or ileus. Continued follow-up recommended. 2. No pneumoperitoneum identified. Electronically signed by: Artur Ortega M.D. 10/23/2018 10:52 AM
--- NOTE | 2018-10-23 14:21 | Pharmacy Report ---
PHA: Parenteral Nutrition Con - Date of Service October 23, 2018 - Scope Pharmacy was consulted on 10/12 to manage parenteral nutrition orders for this patient. - Subjective The patient is currently on day 4 of central nutrition for SBO. - Objective Height: 5 ft 10 in Weight: 62.7 kg Diet: Clear Liquid Intake & Output (24hrs):: Intake & Output 10/21/18 10/22/18 10/23/18 10/24/18 06:59 06:59 06:59 06:59 Intake Total 1111.833 / 1111.833 695 / 695 1212.5 / 1212.5 Balance 1111.833 / 1111.833 695 / 695 1212.5 / 1212.5 Weight 61.6 kg 62.8 kg 62.7 kg Laboratory Data (Last 24 Hr):: 10/23/18 08:32 Sodium 137 Potassium 3.4 L Chloride 105 Carbon Dioxide 27 BUN 11 Creatinine 0.41 L Glucose 114 H Calcium 7.5 L Phosphorus 3.5 Magnesium 2.0 Nutrition Assessment:: Please refer to the Notes section of the EMR for the most recent granulizing machine operator note. - Plan For day 4 of PN administration, the following will be ordered: Macronutrients Amino acids 95 grams/day Dextrose 150 grams/day Lipids 50 grams/day Micronutrients Combined electrolytes 20 mL - contains 35 mEq Na, 20 meq K, 4.5 mEq Ca, 5 mEq Mg , 35 mEq Cl, 29.5 mEq acetate per 20 mL Sodium phosphate 21 MMol Potassium chloride 50 mEq Magnesium sulfate 8.12 mEq Multivitamins 10 mL Trace Elements 1 mL Additional additives: NIL Total volume 1650 mL to be infused over 12 hrs will provide 1400 kcal/day Decreased the dextrose 200g/D ----> 150g/D to target a glucose infusion rate of ~4mg/kg/hr to avoid any steatosis/rebound hypoglycemia. Labs, as indicated, will be ordered per protocol Pharmacy will continue to follow and adjust parenteral nutrition orders on a daily basis. Thank you for allowing us to participate in the care of this patient.
[2018-10-23] MEDS: SCOPOLAMINE 1.5 MG TDSY TD SCH (15:23)
[2018-10-23] MEDS: CHECK FENTANYL PATCH PLACEMENT SCH ×2 (15:24→23:13)
--- NOTE | 2018-10-23 16:20 | Hospitalist Progress Note ---
Date of Service October 23, 2018 Assessment & Plan (1) SBO (small bowel obstruction): Xray KUB shows improvement of gas filled dilated small bowel loop with passage of gas in large intestine suggestive of partial /incomplete bowel obstruction vs illeus Symptoms has improved, minimum abdominal pain, minimum nausea, no vomiting, able to pass gas Continue bowel rest with n.p.o., parenteral nutrition with TPN recurrent small bowel obstruction due to metastatic colon Ca repeat CT abdomen /pelvis 10/19/18 : 1. Multiple dilated air and fluid-filled loops of small bowel throughout the abdomen and pelvis suggest ongoing small bowel obstruction, definite transition point is not definitively identified. Soft tissue thickening with hyperdense material about the abdominal right upper quadrant is again seen suggesting surgical suture material. Mild adjacent decompressed loops of bowel within this area may reflect transition point. Continued follow-up recommended. 2. No pneumatosis or pneumoperitoneum. 3. Heterogeneous soft tissue lesion of the right lower quadrant suggests jose metastasis with additional 2.5 cm soft tissue lesion of the presacral distribution suggestive of jose metastasis or peritoneal carcinomatosis. 4. 2.2 cm left hepatic lobe lesion is also suspicious for possible metastatic disease. Ordered for bowel rest, TPN, attempt conservative approach for spontaneous resolution of obstruction, and any evidence of clinical decline patient will be transferred to tertiary care for surgical intervention, appreciate input from surgery Presented with abdominal pain and nausea/vomiting -small bowel obstruciton History of colon cancer, status post partial colectomy, now with peritoneal carcinomatosis. CT abdomen in admussion demonstrated small bowel obstruction with transition point in the right upper quadrant. General Surgery consultation obtained. Managed with bowel rest, NG tube, IV fluids, TPN. Started passing flatus and then some stool. NG tube clamped and removed. Started on clear liquids; advanced to full liquids to solid cont to have intermittent severe pain. repeat CT finding as above : recurrence of SBO. (2) Abdominal pain: Improved due to above -SBO bowel rest , NPO ,IV fluid Continue TPN appreciate input from pain managment fentanyl patch resumed recommends Celiac block (3) Protein calorie malnutrition: Inadequate PO intake due to bowel obstruction and underlying malignancy. Nutrition consulted. Continue TPN, patient is highly likely to to be discharged home on TPN ordered for NPO for recurrent bowel obstruction overall prognosis remains poor (4) Sinus tachycardia: Improved possible due to SBO /abdominal pain cont Iv fluid , pain control No evidence of pulmonary embolism on CTA of chest. 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 CT of abdomen and pelvis during this admission showed bowel obstruction as discussed above as well as trace ascites, ill-defined soft tissue anterior to the rectum worrisome for neoplastic process, 3.4 cm ileocolic mass (possible jose metastases), 2.2 cm hepatic lesion. Management per Medical Oncology. (7) Abnormal screening computed tomography (CT) of chest: CTA of chest performed to rule out pulmonary embolism. No evidence of PE. Multiple ill-defined nodules were noted in the superior segment of the left lower lobe suggesting possible infectious process. Pulmonary nodules may be secondary to metastatic colon cancer. (8) DVT prophylaxis: SCD's ordered. hols SQ Lovenox for repeated SBO (9) Discharge planning issues: CODE STATUS: Full code Anticipated discharge to home. Family Medicine follow-up with Dr. Payne. Medical Oncology follow-up with Dr. Josué Montalvo. Subjective sitting up on chair abdominal pain has controlled no nausea/vomiting on TPN able to pass gas no bowel movement yet Physical Exam 2 Vital Signs (Past 24 Hours): Last Vital Signs Temp 36.8 C 10/23/18 15:00 Pulse 116 H 10/23/18 15:00 Resp 22 10/23/18 15:00 BP 117/79 10/23/18 15:00 Pulse Ox 100 10/23/18 15:00 Constitutional: + ill appearing, + thin, + cachectic and + in distress (Due to abdominal pain mostly localized to right upper quadrant) Eyes: PERRL, conjunctivae normal, anicteric sclerae ENMT: external ear and nose normal, oropharynx normal Mouth: + dry oral mucous membranes (NG tube present, draining dark bilious gastric drainage) Respiratory: normal respiratory effort, lungs clear to auscultation Cardiovascular: Rate/Rhythm: regular rate and regular rhythm Vessels: normal peripheral pulses Extremities: no edema Gastrointestinal (Abdomen): Inspection/Auscultation: normal bowel sounds ( minimal), + abdominal surgical scar (healed laparoscopic scar /mid abdominal exp lap healed surgical scar ) and + hypoactive bowel sounds; abdomen not distended (flat) Percussion/Palpation: + abdomen tender (diffusely tender ), abdomen soft and + hepatosplenomegaly Musculoskeletal: no cyanosis or clubbing, extremities motor strength 5/5 Skin: no rashes, warm and dry Neurologic: PERRL, EOMI, accommodation nl, no face palsy, no dysarthria Psychiatric: A+Ox3, euthymic affect Orientation: alert and oriented x 3 _ (1) Colon cancer Colon location: transverse Qualified Code(s): C18.4 - Malignant neoplasm of transverse colon (2) Abdominal pain Abdominal location: right lower quadrant Qualified Code(s): R10.31 - Right lower quadrant pain (3) Protein calorie malnutrition Protein-calorie malnutrition severity: moderate Qualified Code(s): E44.0 - Moderate protein-calorie malnutrition
[2018-10-23] MEDS ORDERED: CUSTOM CENTRAL PN IV SCH (20:00)
[2018-10-24] MEDS: PROCHLORPERAZINE 10 MG in SYRINGE 8 ML IV SCH ×4 (05:13→23:44)
[2018-10-24] MEDS: HEPARIN 100 UNIT/ML 5ML FLUSH FLUSH PRN (06:34)
[2018-10-24] MEDS: [UNRECOGNIZED DRUG - REMARK] SCH (06:45)
[2018-10-24 07:20] LABS: BUN Creatinine Ratio 38.5 (10-20); Blood Urea Nitrogen 15 mg/dl (7-18); Calcium 7.6 mg/dl (8.5-10.1); Carbon Dioxide 29 mmol/L (21-32); Chloride 104 mmol/L (98-107); Est GFR (African American) > 150.0; Est GFR (Non-African American) > 150.0; Glucose 108 mg/dl (70-99); Magnesium 2.3 mg/dl (1.8-2.4); Phosphorus 4.3 mg/dl (2.5-4.9); Potassium 3.9 mmol/L (3.5-5.1); Sodium 136 mmol/L (136-145)
[2018-10-24] MEDS: HYDROmorphone HCL 0.5MG/ML 50 ML CASSETTE IV PRN ×2 (08:30→18:22)
--- NOTE | 2018-10-24 08:51 | Pain Management Progress Note ---
Date of Service October 24, 2018 Assessment & Plan (1) Colon cancer: 1. 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 Orders are written. 2. Once patient is able to tolerate p.o. consider utilizing hydromorphone 2 mg p.o. every 3hr versus Roxanol 5 mg p.o. every 4hr as needed breakthrough pain. 3. I spoke with the patient at length about pursuing a diagnostic celiac plexus block to diminish visceral pain and all his questions were answered. Should he have good relief with the diagnostic block would consider neurolysis in the future for longer lasting relief. Procedure is scheduled for tomorrow morning in the main operating room. Patient will remain n.p.o. after midnight ( TPN may continue to run) and CBC was ordered for tomorrow morning. 4. Once able to tolerate p.o. consider initiation of Cymbalta versus nortriptyline to augment descending pain regulation. 5. We will continue to follow thank you. 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 He is status post partial colectomy a with a small bowel obstruction on TPN only for nutrition. He continues to experience nausea and decreased appetite, but improved from previous. He describes a dull spasming pain with associated bloating ranging between 0 and 4 out of 10 located over the right upper and lower quadrants with some radiation to his thoracolumbar spine. 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 He denies any side effects from the hydromorphone or fentanyl patch. Previous interventions over the last 2 months from oncology including Tramadol, Percocet, and MS Contin. He has multiple questions this morning about potential diagnostic celiac block as discussed yesterday Pain Assessment Pain Assessment [facility] Combined Pain Scale: 2-Minimal - Able to engage in pleasures of life with some interference Physical Exam 2 Vital Signs (Past 24 Hours): Last Vital Signs Temp 36.8 C 10/24/18 07:34 Pulse 102 H 10/24/18 07:34 Resp 18 10/24/18 07:34 BP 125/79 10/24/18 07:34 Pulse Ox 98 10/24/18 07:34 Physical Exam: Constitutional: Thin and deconditioned Psych: Awake, alert, and oriented 3 with normal affect and mood. Recent memory appears grossly intact Eyes: Pupils are equally round and reactive to light with normal size pupils, eyelids appear normal Ear, nose, mouth, and throat: Moist nasal and oral membranes, lips and tongues appear normal, no external ear abnormalities are noted Neck: The trachea is midline without deviation and no thyromegaly is noted Respiratory: Normal respiratory effort without distress, no audible wheezes or rhonchi CV: Normal S1 and S2 Chest: Unremarkable GI/abdomen: Abdomen is tender over the right upper and lower quadrants to palpation without rebound. Midepigastric tenderness is noted as well. There are well-healing port sites of a prior cholecystectomy with a well-healed midline surgical incision Musculoskeletal: Head is normocephalic and atraumatic, gait was not observed Cervical: Lordotic curve: Normal Range of motion is normal with extension, flexion, side-bending, rotation Strength: Strength is equal bilaterally with 5 out of 5 strength in all planes Thoracic: Kyphotic curve: Normal Range of motion is normal with extension, flexion, side-bending, rotation Lumbar: Lordotic curve: Normal Range of motion is normal with extension, flexion, side-bending, rotation Tenderness: Moderately tender over the axial midline right greater than left between T12 and L3 approximately Strength: Strength is grossly equal bilaterally with 5 out of 5 strength in all planes Sensation of lower extremities: Intact bilaterally Myofascial spasm: Mild spasm noted over the thoracolumbar paravertebral spinous musculature. No discrete trigger points noted Skin: No rashes, lesions, ulcers, or induration noted. Mediport is accessed and in situ Neuro: No nystagmus noted, the tongue is midline, the patient is able to rotate their head bilaterally : Deferred
[2018-10-24] MEDS: CHECK SCOPOLAMINE PATCH PLACEMENT SCH ×3 (09:33→23:44)
[2018-10-24] MEDS: SODIUM CHLORIDE 0.9% 1000ML 1,000 ML IV SCH ×3 (09:40→21:21)
[2018-10-24] MEDS: [UNRECOGNIZED DRUG - REMARK] SCH ×2 (09:41→20:03)
[2018-10-24] MEDS: fentaNYL 100 MCG/HR TDSY TD SCH (09:53)
[2018-10-24] MEDS: CHECK FENTANYL PATCH PLACEMENT SCH ×3 (11:08→23:44)
--- NOTE | 2018-10-24 12:02 | Anesthesiology Consultation ---
Date of Service October 24, 2018 Assessment & Plan (1) Encounter for pre-operative examination: Chart Review Chart Review: Acceptable Risk for Surgery and Patient NOT seen in Pre Admission Testing Consent for MAC vs GETA. Consults Requested none History Surgery Operation Date: 10/25/18 07:15 Proposed Procedures p Celiac Lumbar Sympathetic Injection - Wisammitchel Velasquez MD, FIPP Height/Weight Height: 5 ft 10 in Weight: 62.3 kg Allergies Allergy/AdvReac Type Severity Reaction Status Date / Time asparagus Allergy Intermediate "small Verified 10/08/18 15:36 bumps on skin" Medications Home Medications Medication Instructions Recorded Confirmed Last Taken ascorbic acid (vitamin C) [Vitamin 500 mg PO DAILY 10/08/18 10/08/18 Unknown C] digestive enzymes 1 cap PO DAILY 10/08/18 10/08/18 Unknown magnesium sulfate 100 mg PO DAILY 10/08/18 10/08/18 Unknown melatonin 20 mg PO HS 10/08/18 10/08/18 Unknown morphine [MS Contin] 30 mg PO BID 10/08/18 10/08/18 Unknown multivitamin 1 tab PO DAILY 10/08/18 10/08/18 Unknown ondansetron 8 mg PO TID PRN 10/08/18 10/08/18 Unknown oxycodone-acetaminophen [Percocet] 1 tab PO Q4H PRN 10/08/18 10/08/18 Unknown prochlorperazine maleate 10 mg PO Q6H PRN 10/08/18 10/08/18 Unknown Active Medications Generic Name Dose Route Start Last Admin Trade Name Freq PRN Reason Stop Dose Admin Fentanyl 100 mcg 10/24/18 09:00 10/24/18 09:53 Duragesic TD 11/07/18 08:59 100 mcg Q3D@0900 GURPREET Administration Heparin Sodium (Porcine) 5 ml 10/10/18 02:29 10/24/18 06:34 Heparin Sod 100 Unit/Ml Flush FLUSH 11/09/18 02:29 5 ml PRN PRN Administration Flush Hydromorphone HCl 25 mg 10/20/18 10:08 10/24/18 08:30 Dilaudid Linux Admin Engineer IV 11/03/18 10:07 25 mg PRN PRN Administration Pain Protocol Promethazine HCl 12.5 mg/ 50.5 mls @ 202 mls/hr 10/08/18 20:28 10/20/18 15:04 Sodium Chloride IV 11/07/18 20:27 Infused Q6H PRN Infusion Nausea And Vomiting Prochlorperazine 10 mg/ 10 mls @ 5 mls/min 10/20/18 00:00 10/24/18 05:13 Syringe IV 11/19/18 00:00 Not Given Q6 GURPREET Sodium Chloride 1,000 mls @ 15 mls/hr 10/20/18 10:15 10/23/18 20:57 Nss 1000ml IV 11/03/18 10:09 30 mls/hr .Q24H GURPREET Administration Sodium Chloride 1,000 mls @ 75 mls/hr 10/24/18 08:00 10/24/18 09:40 Nss 1000ml IV 11/23/18 07:59 75 mls/hr .[id number] GURPREET Administration Miscellaneous 1 ea 10/20/18 16:00 10/24/18 09:34 Incremental Linux Admin Engineer Titration N/A 11/19/18 15:59 Not Given QS GURPREET Miscellaneous 1 ea 10/20/18 16:00 10/24/18 09:34 Lock-Out Linux Admin Engineer Titration N/A 11/03/18 15:59 Not Given QS GURPREET Miscellaneous 1 ea 10/23/18 14:59 10/23/18 15:24 Remove Transderm-Scop Patch N/A 11/22/18 14:58 1 ea Q72H GURPREET Administration Miscellaneous 1 ea 10/20/18 16:00 10/24/18 09:33 Check Scopolamine Patch Placement N/A 11/19/18 15:59 1 ea QS GURPREET Administration Miscellaneous 1 ea 10/24/18 08:00 10/24/18 09:41 Pending Order N/A 11/23/18 07:59 1 ea DAILY@0800,2000 GURPREET Administration Miscellaneous 1 ea 10/23/18 21:00 10/24/18 06:34 Pending Order N/A 11/22/18 20:59 1 ea BID@0700,2100 GURPREET Administration Miscellaneous 1 ea 10/24/18 08:00 10/24/18 06:45 Stop Order N/A 11/23/18 07:59 1 ea DAILY@0800 GURPREET Administration Ondansetron HCl 4 mg 10/08/18 20:28 10/23/18 17:00 Zofran IV 11/07/18 20:27 4 mg Q6H PRN Administration Nausea Phenol 1 sprays 10/10/18 03:01 10/10/18 03:44 Chloraseptic 1.4% [place] 11/09/18 03:00 1 sprays Q1H PRN Administration Sore Throat Scopolamine 1.5 mg 10/20/18 15:00 10/23/18 15:23 Transderm-Scop TD 11/19/18 14:59 1.5 mg Q72H GURPREET Administration Past Medical History Medical History Pedraza syndrome (Chronic) Abdominal pain chronic pain management following. Plan for diagnostic celiac lumbar sympathetic block. SBO (small bowel obstruction) (Acute) Xray KUB shows improvement of gas filled dilated small bowel loop with passage of gas in large intestine suggestive of partial /incomplete bowel obstruction vs illeus Symptoms has improved, minimum abdominal pain, minimum nausea, no vomiting, able to pass gas Continue bowel rest with n.p.o., parenteral nutrition with TPN recurrent small bowel obstruction due to metastatic colon Ca repeat CT abdomen /pelvis 10/19/18 : 1. Multiple dilated air and fluid-filled loops of small bowel throughout the abdomen and pelvis suggest ongoing small bowel obstruction, definite transition point is not definitively identified. Soft tissue thickening with hyperdense material about the abdominal right upper quadrant is again seen suggesting surgical suture material. Mild adjacent decompressed loops of bowel within this area may reflect transition point. Continued follow-up recommended. 2. No pneumatosis or pneumoperitoneum. 3. Heterogeneous soft tissue lesion of the right lower quadrant suggests jose metastasis with additional 2.5 cm soft tissue lesion of the presacral distribution suggestive of jose metastasis or peritoneal carcinomatosis. 4. 2.2 cm left hepatic lobe lesion is also suspicious for possible metastatic disease. Peritoneal metastases (Chronic) Colon cancer (Chronic) On total parenteral nutrition (TPN) Past Family History Family History Grandfather Colon cancer Uncle Colon cancer Past Surgical History Surgical History S/P partial colectomy (Chronic) partial transverse colectomy. 04/21/2018. Ex-lap. MAC 3. Grade 1 view. 7.5 ETT. History of cholecystectomy (Chronic) Social History Smoking Status: Never smoker Hx Alcohol Use: No alcohol intake frequency: holidays/special occasions only Hx Substance Use: No substance use type: does not use Physical Exam Vital Signs Last Vital Signs Temp 36.8 C 10/24/18 11:20 Pulse 85 10/24/18 11:20 Resp 16 10/24/18 11:20 BP 118/79 10/24/18 11:20 Pulse Ox 99 10/24/18 11:20 ENMT Mouth: no TMJ abnormality and no TMJ clicking Thyromental Distance: > or= 3.5 Finger Breadths Mallampati Class: II Respiratory normal respiratory effort Auscultation: lungs clear to auscultation bilaterally Cardiovascular Rate/Rhythm: regular rate and regular rhythm Testing Other Testing KUB 10/23/2018 HISTORY: Acute abdominal pain with reported small bowel obstruction. Follow-up study. small bowel obstruction COMPARISON: CT abdomen pelvis 10/19/2018. FINDINGS: Prior cholecystectomy. Surgical suture material again noted about the abdominal right upper quadrant. Air is noted within the stomach, small and large bowel with moderate degree of formed stool seen about the right hemicolon. Dilated loops of air-filled small bowel are again seen measuring up to 4.67 m transversely about the left abdomen. No pneumatosis or pneumoperitoneum identified. No definite urolith or acute fracture. IMPRESSION: 1. Air distended loops of small bowel redemonstrated, however air is also also noted within the large bowel. Findings suggest partial small bowel obstruction or ileus. Continued follow-up recommended. 2. No pneumoperitoneum identified. Laboratory Results 10/17/18 06:30 10/24/18 06:25 PT 10.1 Seconds (9.0-12.0) 10/14/18 14:54 INR 1.0 (0.9-1.1) 10/14/18 14:54 Urine Color Yellow 10/22/18 18:00 Urine Appearance Turbid (Clear) H 10/22/18 18:00 Urine pH 8.0 (4.5-7.5) H 10/22/18 18:00 Ur Specific Jackson 1.015 (1.000-1.030) 10/22/18 18:00 Urine Protein Negative (Negative) 10/22/18 18:00 Urine Glucose (UA) Negative (Negative) 10/22/18 18:00 Urine Ketones Negative (Negative) 10/22/18 18:00 Urine Nitrite Negative (Negative) 10/22/18 18:00 Ur Leukocyte Esterase Negative (Negative) 10/22/18 18:00 Urine WBC (Auto) 1-5 /hpf (0-5) 10/22/18 18:00 Urine RBC (Auto) 0-4 /hpf (0-4) 10/22/18 18:00 U Hyaline Cast (Auto) 1-5 /lpf (0-5) 10/22/18 18:00 U Epithel Cells (Auto) 0-5 /lpf (0-5) 10/22/18 18:00 Urine Bacteria (Auto) Negative (Negative) 10/22/18 18:00
--- NOTE | 2018-10-24 18:04 | Hospitalist Progress Note ---
Date of Service October 24, 2018 Assessment & Plan (1) SBO (small bowel obstruction): Xray KUB shows improvement of gas filled dilated small bowel loop with passage of gas in large intestine suggestive of partial /incomplete bowel obstruction vs illeus Symptoms has improved, minimum abdominal pain, minimum nausea, no vomiting, able to pass gas Continue bowel rest with n.p.o., parenteral nutrition with TPN recurrent small bowel obstruction due to metastatic colon Ca repeat CT abdomen /pelvis 10/19/18 : 1. Multiple dilated air and fluid-filled loops of small bowel throughout the abdomen and pelvis suggest ongoing small bowel obstruction, definite transition point is not definitively identified. Soft tissue thickening with hyperdense material about the abdominal right upper quadrant is again seen suggesting surgical suture material. Mild adjacent decompressed loops of bowel within this area may reflect transition point. Continued follow-up recommended. 2. No pneumatosis or pneumoperitoneum. 3. Heterogeneous soft tissue lesion of the right lower quadrant suggests jose metastasis with additional 2.5 cm soft tissue lesion of the presacral distribution suggestive of jose metastasis or peritoneal carcinomatosis. 4. 2.2 cm left hepatic lobe lesion is also suspicious for possible metastatic disease. Ordered for bowel rest, TPN, attempt conservative approach for spontaneous resolution of obstruction, and any evidence of clinical decline patient will be transferred to tertiary care for surgical intervention, appreciate input from surgery Presented with abdominal pain and nausea/vomiting -small bowel obstruciton History of colon cancer, status post partial colectomy, now with peritoneal carcinomatosis. CT abdomen in admussion demonstrated small bowel obstruction with transition point in the right upper quadrant. General Surgery consultation obtained. Managed with bowel rest, NG tube, IV fluids, TPN. Started passing flatus and then some stool. NG tube clamped and removed. Started on clear liquids; advanced to full liquids to solid cont to have intermittent severe pain. repeat CT finding as above : recurrence of SBO. (2) Abdominal pain: Improved due to above -SBO bowel rest , NPO ,IV fluid Continue TPN appreciate input from pain managment On fentanyl patch, dose increased Patient for celiac plexus block tomorrow (3) Protein calorie malnutrition: Inadequate PO intake due to bowel obstruction and underlying malignancy. Nutrition consulted. Continue TPN, patient is highly likely to to be discharged home on TPN Continue n.p.o. for recurrent bowel obstruction overall prognosis remains poor (4) Sinus tachycardia: Improved possible due to SBO /abdominal pain cont Iv fluid , pain control No evidence of pulmonary embolism on CTA of chest. 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 CT of abdomen and pelvis during this admission showed bowel obstruction as discussed above as well as trace ascites, ill-defined soft tissue anterior to the rectum worrisome for neoplastic process, 3.4 cm ileocolic mass (possible jose metastases), 2.2 cm hepatic lesion. Management per Medical Oncology. (7) Abnormal screening computed tomography (CT) of chest: CTA of chest performed to rule out pulmonary embolism. No evidence of PE. Multiple ill-defined nodules were noted in the superior segment of the left lower lobe suggesting possible infectious process. Pulmonary nodules may be secondary to metastatic colon cancer. (8) DVT prophylaxis: SCD's ordered. hols SQ Lovenox for repeated SBO (9) Discharge planning issues: CODE STATUS: Full code Anticipated discharge to home. Family Medicine follow-up with Dr. Payne. Medical Oncology follow-up with Dr. Josué Montalvo. Subjective Dilaudid LIVESTOCK INSPECTOR was discontinued earlier, fentanyl patch increased to 100 mcg Scheduled for celiac plexus block tomorrow Patient reports of worsening abdominal pain discomfort Dilaudid LIVESTOCK INSPECTOR resumed on a lower rate Physical Exam Vital Signs (Past 24 Hours): Last Vital Signs Temp 36.8 C 10/24/18 15:43 Pulse 105 H 10/24/18 15:43 Resp 18 10/24/18 15:43 BP 118/74 10/24/18 15:43 Pulse Ox 100 10/24/18 15:43 Constitutional: + ill appearing, + thin, + cachectic and + in distress (Due to abdominal pain mostly localized to right upper quadrant) Eyes: PERRL, conjunctivae normal, anicteric sclerae ENMT: external ear and nose normal, oropharynx normal Mouth: + dry oral mucous membranes (NG tube present, draining dark bilious gastric drainage) Respiratory: normal respiratory effort, lungs clear to auscultation Cardiovascular: Rate/Rhythm: regular rate, regular rhythm and + tachycardic (Sinus tachycardia heart rate in the 110s) Vessels: normal peripheral pulses Extremities: no edema Gastrointestinal (Abdomen): Inspection/Auscultation: normal bowel sounds (minimal), + abdominal surgical scar (healed laparoscopic scar /mid abdominal exp lap healed surgical scar ) and + hypoactive bowel sounds; abdomen not distended (flat) Percussion/Palpation: + abdomen tender (diffusely tender ), + guarding, + abdomen rigid, abdomen soft and + hepatosplenomegaly Musculoskeletal: no cyanosis or clubbing, extremities motor strength 5/5 Skin: no rashes, warm and dry Neurologic: PERRL, EOMI, accommodation nl, no face palsy, no dysarthria Psychiatric: A+Ox3, euthymic affect Orientation: alert and oriented x 3 Eye Contact: good eye contact Affect: + depressed affect (1) Colon cancer Colon location: transverse Qualified Code(s): C18.4 - Malignant neoplasm of transverse colon (2) Abdominal pain Abdominal location: right lower quadrant Qualified Code(s): R10.31 - Right lower quadrant pain (3) Protein calorie malnutrition Protein-calorie malnutrition severity: moderate Qualified Code(s): E44.0 - Moderate protein-calorie malnutrition
[2018-10-24] MEDS ORDERED: CUSTOM CENTRAL PN IV SCH (20:00)
[2018-10-25] MEDS ORDERED: CEFAZOLIN 1000MG 1,000 MG/7.5 ML SYR IV SCH (06:00)
[2018-10-25] MEDS: PROCHLORPERAZINE 10 MG in SYRINGE 8 ML IV SCH (06:10)
[2018-10-25] MEDS ORDERED: fentaNYL citrate 100 MCG/2 ML VIAL IV PRN (06:43)
[2018-10-25] MEDS ORDERED: ONDANSETRON INJ 2 MG/ML 2 ML VIAL IV PRN (06:43)
[2018-10-25] MEDS ORDERED: HYDROmorphone INJ 1 MG/ML SYRINGE IV PRN (06:43)
[2018-10-25] MEDS ORDERED: ePHEDrine sulfate 50 MG/ML AMP IV PRN (06:43)
[2018-10-25] MEDS ORDERED: ATROPINE SULFATE 0.1 MG/ML 10ML SYR IV PRN (06:43)
[2018-10-25] MEDS ORDERED: fentaNYL citrate 100 MCG/2 ML VIAL ONE ×3 (06:47→07:48)
[2018-10-25] MEDS ORDERED: MIDAZOLAM HCL 1 MG/ML 2ML VIAL ONE (06:47)
[2018-10-25] MEDS ORDERED: IOPAMIDOL INJ 61% 15 ML VIAL ONE (06:55)
[2018-10-25] MEDS ORDERED: DEXAMETHASONE **PF** INJ 10 MG/ML VIAL ONE (06:56)
[2018-10-25] MEDS ORDERED: LIDOCAINE HCL 1% 20 ML VIAL ONE (06:56)
[2018-10-25] MEDS ORDERED: EPINEPHrine INJ 1 MG/ML AMP ONE (06:56)
[2018-10-25] MEDS ORDERED: TRIAMCINOLONE ACET 40 MG/ML VIAL ONE (06:56)
[2018-10-25] MEDS ORDERED: LIDOCAINE HCL 2% (LOCAL) INJ 50 ML VIAL ONE (06:57)
--- NOTE | 2018-10-25 07:24 | History & Physical Bridge Note ---
Date of Service October 25, 2018 History & Physical Bridge Note I have examined the patient, reviewed the History & Physical and in the interval since the performance of the History & Physical I have noted the following changes of clinical significance: no changes note. Potential risks including infection, bleeding, nerve injury, reaction to any one of the medications used for the procedure, persistent pain at the injection site and persistent symptoms discussed with the patient. Diagnostic nature of the procedure also discussed with the patient. Alternatives to the specific procedure was also discussed with the patient. Patient's questions were answered. Patient gives informed consent to proceed. Oh potential risks including infection, bleeding, nerve injury, reaction to any one of the medications used for the procedure, persistent pain at the injection site and persistent symptoms discussed with the patient. Diagnostic nature of the procedure also discussed with the patient. Alternatives to the specific procedure was also discussed with the patient. Patient's questions were answered. Patient gives informed consent to proceed. No contraindications noted to proceed.
[2018-10-25] MEDS ORDERED: OXYCODONE/ACETAMINOPHEN 5mg/325mg TAB PO PRN (08:41)
[2018-10-25] MEDS ORDERED: PROCHLORPERAZINE MALEATE 10 MG TAB PO PRN (08:41)
[2018-10-25] MEDS ORDERED: ONDANSETRON 8MG OD TAB PO PRN (08:41)
[2018-10-25] MEDS ORDERED: ROPIVACAINE 0.5% 5 MG/ML 30 ML VIAL INFIL SCH (08:45)
[2018-10-25] MEDS ORDERED: DIGESTIVE ENZYMES PO SCH (09:00)
[2018-10-25] MEDS ORDERED: MAGNESIUM SULFATE 100 MG PO SCH (09:00)
[2018-10-25] MEDS ORDERED: MoRPHine SULFATE CR 15 MG TABCR PO SCH (09:00)
[2018-10-25] MEDS: [UNRECOGNIZED DRUG - REMARK] SCH (09:06)
[2018-10-25] MEDS: CHECK FENTANYL PATCH PLACEMENT SCH ×3 (09:07→23:50)
[2018-10-25] MEDS: [UNRECOGNIZED DRUG - REMARK] SCH ×2 (09:07→20:32)
[2018-10-25] MEDS: SODIUM CHLORIDE 0.9% 1000ML 1,000 ML IV SCH ×2 (09:08→23:45)
[2018-10-25] MEDS: MULTIVITAMIN TAB PO SCH (10:19)
[2018-10-25] MEDS: ASCORBIC ACID 500 MG TAB PO SCH (10:19)
--- NOTE | 2018-10-25 10:21 | Operative Report ---
Post Operative Report Pre & Post Diagnosis Operation Date: 10/25/18 07:15 Pre-Op Diagnosis: SMALL BOWEL OBSTRUCTION Procedure Operation Date: 10/25/18 07:15 Right celiac plexus block Surgeon Wisam Velasquez MD, FI Movie Shot Camera Operator None Estimated Blood Loss 0 Findings Consistent with Post-Op Diagnosis Specimens None Drains None Complications none Disposition Disposition: Recovery Room Description of Procedure CELIAC PLEXUS BLOCK Preoperative diagnosis: Right upper quadrant abdominal pain. Metastatic colon cancer Postoperative diagnosis: Same Anesthesia: Monitored anesthesia care EBL: 0 mL Complications: None Disposition: To PACU Side/Level injected: Celiac plexus block via right-sided approach Surgeon: Dr. Velasquez Prior to starting, the Patients diagnosis and the procedure were reviewed with the patient in detail. Possible risks and complications including infection, bleeding, damage to surrounding structures and increased pain were discussed. Alternative therapies were also reviewed. Patients questions were answered and they agreed to proceed. Informed consent was obtained. Allergies and medication list was reviewed. The patient was brought to the operating room and placed in prone position. Immediately prior to starting the procedure, a ``time out was conducted with the staff and the patient where the patient was identified, proposed procedure was verified, consent was reviewed and the proper site for the planned procedure was identified. Monitors used included intermittent blood pressure with automated device, continuous pulse oximetry and level of consciousness. Patient was not given any intravenous sedation and constant verbal contact was maintained throughout the procedure. Biplanar fluoroscopy was used to assist in placement of the needle as well as to evaluate final needle position prior to the injection. On examination, no signs of skin breakdown or infection were noted at the injection site. The site was cleansed with DuraPrep followed by Betadine. Sterile drapes were applied. Ancef, 1 gram was given IV prior to the start of the injection. The thoracolumbar spine area was prepped with Duraprep and Betadine solution. Sterile drapes were applied. Next, a true AP view of the L1 vertebral body was identified. The C-arm was then turned approximately 25 obliquely to the appropriate side that the superior lateral margin of the vertebral body was congruent with the transverse process. 2% Lidocaine 3 cc, was infiltrated in the skin and subcutaneous tissues using a 27 gauge needle. Then a 22-gauge, 5 inch Quincke spinal needle with a 15 curved tip was introduced at the superior lateral margin of the L1 vertebral body and advanced until contact was made with the vertebral body. The needle was the rotated and walked off laterally from the vertebral body. In a true AP view and it was advanced until the needle tip lied at the anterior edge of the L1 vertebral body. A 6 inch micro bore tubing was attached to the needle. Next, 3ml of Isovue 300 contrast was injected showing typical spread along the celiac plexus. Digital subtraction angiography at 8 fps showed no vascular uptake. This was confirmed again in AP view. No blood, CSF or paresthesias were noted. Next 13 mL of 0.5% Ropivacaine containing 10 milligrams of Aqueous dexamethasone was injected in 5ml aliquots after negative aspiration for blood or CSF. No complications were noted. There were no signs or symptoms of local anesthetic toxicity. The needle was withdrawn. Adequate hemostasis was noted. A sterile Band-Aid was applied at the injection site. Patient was then transferred to the recovery room for observation. I attest to the content of the Intraoperative Record and any orders documented therein. Any exceptions are noted below.
[2018-10-25] MEDS: CHECK SCOPOLAMINE PATCH PLACEMENT SCH (10:24)
[2018-10-25 10:41] LABS: BUN Creatinine Ratio 29.9 (10-20); Blood Urea Nitrogen 12 mg/dl (7-18); Calcium 7.8 mg/dl (8.5-10.1); Carbon Dioxide 25 mmol/L (21-32); Chloride 104 mmol/L (98-107); Est GFR (African American) > 150.0; Est GFR (Non-African American) > 150.0; Glucose 109 mg/dl (70-99); Magnesium 2.1 mg/dl (1.8-2.4); Potassium 3.9 mmol/L (3.5-5.1); Sodium 135 mmol/L (136-145)
--- NOTE | 2018-10-25 10:41 | Anesthesiology Progress Note ---
Date of Service October 25, 2018 Anesthesia Post Procedure Vital Signs Vital Signs: Temp Pulse Pulse Resp BP Pulse Ox 10/25/18 08:35 117 H 18 132/76 96 10/25/18 08:28 37.2 C 112 H 18 126/75 97 10/25/18 04:00 37 C 98 H 16 131/80 99 10/24/18 23:07 36.7 C 103 H 18 130/84 98 10/24/18 19:42 36.3 C L 126 H 18 141/85 H 100 10/24/18 15:43 36.8 C 105 H 18 118/74 100 10/24/18 11:20 36.8 C 85 16 118/79 99 Pain Intensity Abdomen: Pain Intensity: 2 Notes Mental Status: alert / awake / arousable and participated in evaluation Patient Amnestic to Procedure: Yes Nausea / Vomiting: adequately controlled Pain: adequately controlled Airway Patency, RR, SpO2: stable & adequate BP & HR: stable & adequate Hydration State: stable & adequate Anesthetic Complications: no major complications apparent and Pt Satisfied with anesthetic care
[2018-10-25 10:44] LABS: Phosphorus 3.2 mg/dl (2.5-4.9)
[2018-10-25] MEDS: POLYETHYLENE (MIRALAX) 17 GM PACK PO SCH (16:22)
--- NOTE | 2018-10-25 18:38 | Hospitalist Progress Note ---
Date of Service October 25, 2018 Assessment & Plan (1) SBO (small bowel obstruction): Xray KUB shows improvement of gas filled dilated small bowel loop with passage of gas in large intestine suggestive of partial /incomplete bowel obstruction vs illeus Symptoms has improved, minimum abdominal pain, minimum nausea, no vomiting, able to pass gas Continue bowel rest with n.p.o., parenteral nutrition with TPN recurrent small bowel obstruction due to metastatic colon Ca repeat CT abdomen /pelvis 10/19/18 : 1. Multiple dilated air and fluid-filled loops of small bowel throughout the abdomen and pelvis suggest ongoing small bowel obstruction, definite transition point is not definitively identified. Soft tissue thickening with hyperdense material about the abdominal right upper quadrant is again seen suggesting surgical suture material. Mild adjacent decompressed loops of bowel within this area may reflect transition point. Continued follow-up recommended. 2. No pneumatosis or pneumoperitoneum. 3. Heterogeneous soft tissue lesion of the right lower quadrant suggests jose metastasis with additional 2.5 cm soft tissue lesion of the presacral distribution suggestive of jose metastasis or peritoneal carcinomatosis. 4. 2.2 cm left hepatic lobe lesion is also suspicious for possible metastatic disease. Continue bowel rest, TPN, attempt conservative approach for spontaneous resolution of obstruction, and any evidence of clinical decline patient will be transferred to tertiary care for surgical intervention, appreciate input from surgery Nausea vomiting has resolved, able to pass gas, had small bowel movement earlier today We will repeat CT abdomen pelvis with IV contrast tomorrow a.m. Plan to start on clears only if CAT scan shows resolution of small bowel obstruction (2) Abdominal pain: Improved due to above -SBO bowel rest , NPO ,IV fluid Continue TPN appreciate input from pain managment On fentanyl patch, dose increased Status post celiac plexus block today (3) Protein calorie malnutrition: Inadequate PO intake due to bowel obstruction and underlying malignancy. Nutrition consulted. Continue TPN, patient is highly likely to to be discharged home on TPN Continue n.p.o. for recurrent bowel obstruction overall prognosis remains poor (4) Sinus tachycardia: Improved possible due to SBO /abdominal pain cont Iv fluid , pain control No evidence of pulmonary embolism on CTA of chest. 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 CT of abdomen and pelvis during this admission showed bowel obstruction as discussed above as well as trace ascites, ill-defined soft tissue anterior to the rectum worrisome for neoplastic process, 3.4 cm ileocolic mass (possible jose metastases), 2.2 cm hepatic lesion. Management per Medical Oncology. (7) Abnormal screening computed tomography (CT) of chest: CTA of chest performed to rule out pulmonary embolism. No evidence of PE. Multiple ill-defined nodules were noted in the superior segment of the left lower lobe suggesting possible infectious process. Pulmonary nodules may be secondary to metastatic colon cancer. (8) DVT prophylaxis: SCD's ordered. hols SQ Lovenox for repeated SBO (9) Discharge planning issues: CODE STATUS: Full code Anticipated discharge to home. Family Medicine follow-up with Dr. Payne. Medical Oncology follow-up with Dr. Josué Montalvo. Subjective Patient underwent celiac plexus block today, pain much improved, walking on the hallway No nausea vomiting Able to pass gas reports of small bowel movement earlier today No fever or chills Physical Exam Vital Signs (Past 24 Hours): Last Vital Signs Temp 36.4 C L 10/25/18 15:15 Pulse 96 H 10/25/18 15:15 Resp 22 10/25/18 15:15 BP 114/73 10/25/18 15:15 Pulse Ox 93 10/25/18 15:15 Constitutional: + ill appearing, + thin, + cachectic and + in distress (Due to abdominal pain mostly localized to right upper quadrant) Eyes: PERRL, conjunctivae normal, anicteric sclerae ENMT: external ear and nose normal, oropharynx normal Mouth: + dry oral mucous membranes (NG tube present, draining dark bilious gastric drainage) Respiratory: normal respiratory effort, lungs clear to auscultation Cardiovascular: Rate/Rhythm: regular rate, regular rhythm and + tachycardic (Sinus tachycardia heart rate in the 110s) Vessels: normal peripheral pulses Extremities: no edema Gastrointestinal (Abdomen): Inspection/Auscultation: normal bowel sounds (minimal), + abdominal surgical scar (healed laparoscopic scar /mid abdominal exp lap healed surgical scar ) and + hypoactive bowel sounds; abdomen not distended (flat) Percussion/Palpation: + abdomen tender (diffusely tender ), + guarding, + abdomen rigid, abdomen soft and + hepatosplenomegaly Musculoskeletal: no cyanosis or clubbing, extremities motor strength 5/5 Skin: no rashes, warm and dry Neurologic: PERRL, EOMI, accommodation nl, no face palsy, no dysarthria Psychiatric: A+Ox3, euthymic affect Orientation: alert and oriented x 3 Eye Contact: good eye contact Affect: + depressed affect (1) Abdominal pain Abdominal location: right lower quadrant Qualified Code(s): R10.31 - Right lower quadrant pain (2) Protein calorie malnutrition Protein-calorie malnutrition severity: moderate Qualified Code(s): E44.0 - Moderate protein-calorie malnutrition (3) Colon cancer Colon location: transverse Qualified Code(s): C18.4 - Malignant neoplasm of transverse colon
[2018-10-25] MEDS ORDERED: CUSTOM CENTRAL PN IV SCH (20:00)
[2018-10-25] MEDS ORDERED: NON-FORMULARY MEDICATION (Melatonin 20 MG) PO SCH (21:00)
[2018-10-26] MEDS: HYDROmorphone INJ 1 MG/ML SYRINGE IV PRN ×3 (02:48→12:55)
[2018-10-26] MEDS: CHECK FENTANYL PATCH PLACEMENT SCH ×3 (07:36→23:53)
[2018-10-26] MEDS: POLYETHYLENE (MIRALAX) 17 GM PACK PO SCH (07:37)
[2018-10-26] MEDS: ASCORBIC ACID 500 MG TAB PO SCH (07:38)
[2018-10-26] MEDS: MULTIVITAMIN TAB PO SCH (07:38)
[2018-10-26 08:08] LABS: BUN Creatinine Ratio 33.5 (10-20); Blood Urea Nitrogen 13 mg/dl (7-18); Calcium 7.5 mg/dl (8.5-10.1); Carbon Dioxide 26 mmol/L (21-32); Chloride 106 mmol/L (98-107); Creatinine Clr Calc Pharmacy 232.9 ml/min; Est GFR (African American) > 150.0; Est GFR (Non-African American) > 150.0; Glucose 129 mg/dl (70-99); Magnesium 2.3 mg/dl (1.8-2.4); Phosphorus 3.3 mg/dl (2.5-4.9); Potassium 3.6 mmol/L (3.5-5.1); Sodium 138 mmol/L (136-145)
[2018-10-26] MEDS: [UNRECOGNIZED DRUG - REMARK] SCH (08:38)
[2018-10-26] MEDS: SODIUM CHLORIDE 0.9% 1000ML 1,000 ML IV SCH (08:39)
[2018-10-26] MEDS: [UNRECOGNIZED DRUG - REMARK] SCH ×2 (08:40→20:05)
--- NOTE | 2018-10-26 09:17 | Pain Management Progress Note ---
Date of Service October 26, 2018 Assessment & Plan (1) Colon cancer: 1. Maintain fentanyl patch to 100 mcg every 72 hours 2. Will initiate hydromorphone 4 mg every 2 hours for as needed breakthrough pain. He was encouraged to utilize oral hydromorphone to assess effectiveness/tolerability in place of IV hydromorphone throughout today for discharge planning purposes 3. We spoke with the patient at length about pursuing a celiac plexus neurolytic block to diminish visceral pain and all his questions were answered. Patient believes he will be discharged in the next 24-48 hours. We will tentatively plan to pursue the neurolytic block next 10/31/2018. 4. Will continue to follow. 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 He is status post partial colectomy a with a small bowel obstruction on TPN only for nutrition. He continues to experience nausea and decreased appetite, but improved from previou s. Patient underwent diagnostic celiac plexus block yesterday in which he reported greater than 50% relief of his chronic abdominal and flank pain complaints throughout yesterday and last evening. He continues to report diminished frequency and severity of pain today. He has utilized IV hydromorphone x2 only in the past 24 hours since the time of the celiac plexus block. His pain is less severe and frequent at this time and is responsive to hydromorphone. He denies side effects from the procedure and has been encouraged by the results. He would like to further discuss pursuing the neurolytic block. Patient rates his current pain at a 4/10. His pain has been ranging between a 2-6/10. Pain Assessment Pain Assessment Full Body Front + Back: 1. Midepigastric/generalized upper abdominal pain 2. Thoracolumbar flank pain Pain scale - at its best (0-10): 2 Pain scale - at its worst (0-10): 6 Physical Exam Vital Signs (Past 24 Hours): Last Vital Signs Temp 36.9 C 10/26/18 08:22 Pulse 116 H 10/26/18 08:22 Resp 18 10/26/18 08:22 BP 123/82 10/26/18 08:22 Pulse Ox 99 10/26/18 08:22 Physical Exam: General: Patient lying quietly in the exam room in no acute distress. Speech and thought process appropriate. Mood and affect appropriate. Cognition intact Abdomen: Soft and nondistended. Generalized tenderness in the midepigastric and upper abdominal region without rebound or guarding. Back/spine: Band-Aid removed for visual inspection. No evidence of edema, erythema or skin breakdown at site of needle insertion for celiac plexus block. No palpable tenderness of the thoracolumbar region. Neurologic: Cranial nerves grossly intact. Ambulation not witnessed.
[2018-10-26] MEDS ORDERED: IOVERSOL 100ml IV PRN (11:29)
--- NOTE | 2018-10-26 11:50 | CT Scan Report ---
CT abd pelvis IV con only CLINICAL HISTORY: colon ca /bowel obstruction COMPARISON STUDY: 10/19/2018 TECHNIQUE: A dose lowering technique was utilized adhering to the principles of ALARA. CT DOSE: 308.32 mGycm FINDINGS: Lower chest: The heart is normal in size and configuration, without pericardial effusion. The lung ba ses and pleural spaces are clear. Liver: There is a persistent 2.5 cm hypodense mass within the left lobe of the liver abutting the gal lbladder fossa Gallbladder: Surgically absent Spleen: Normal in size and attenuation. Pancreas: Unremarkable. Adrenal glands: Unremarkable. Kidneys: There is symmetric renal cortical enhancement. The kidneys are normal in size without hydron ephrosis. Bowel: There are persistent dilated fluid-filled small bowel loops with a relatively decompressed col on. The findings are again indicative of a small bowel obstruction. Peritoneum: There is a 3 cm central mesenteric mass/adenopathy. There is a calcified anterior periton eal/omental nodule measuring 41 mm. There is trace free fluid. There are unexplained tiny gas bubbles within or adjacent to the amanda the diaphragm extending to the posterior medial liver capsule. The et iology of this extraluminal gas is not known. Vasculature: The abdominal aorta is normal in course and caliber. Adenopathy: None. Pelvic viscera: There is a persistent 27 mm soft tissue nodule abutting the anterior rectum. Skeletal structures: No destructive osseous lesions are seen. IMPRESSION: 1. Persistent small bowel obstruction. 2. Suspected peritoneal carcinomatosis. Persistent soft tissue mass adjacent to the anterior rectum. Persistent soft tissue mass within the right lower quadrant mesentery. Persistent calcified anterior peritoneal nodule. 3. Persistent 2.5 cm left lobe hepatic lesion 4. Interval development of tiny gas bubbles within or adjacent to the amanda of the right hemidiaphragm extending to the posterior medial liver capsule. The etiology of this extraluminal gas is not known. Electronically signed by: Gopal Bullock M.D. 10/26/2018 11:49 AM
--- NOTE | 2018-10-26 13:26 | Anesthesiology Progress Note ---
Date of Service October 26, 2018 Anesthesia Post Procedure Vital Signs Vital Signs: Temp Pulse Resp BP Pulse Ox 10/26/18 08:22 36.9 C 116 H 18 123/82 99 10/26/18 03:48 37 C 106 H 18 123/77 99 10/25/18 23:00 36.7 C 120 H 18 127/72 99 10/25/18 19:21 36.5 C 116 H 22 124/79 100 10/25/18 15:15 36.4 C L 96 H 22 114/73 93 Pain Intensity Abdomen: Pain Intensity: 2 Notes Mental Status: alert / awake / arousable and participated in evaluation Patient Amnestic to Procedure: Yes Nausea / Vomiting: adequately controlled Pain: adequately controlled Airway Patency, RR, SpO2: stable & adequate BP & HR: stable & adequate Hydration State: stable & adequate Anesthetic Complications: no major complications apparent and Pt Satisfied with anesthetic care
[2018-10-26] MEDS: HYDROmorphone HCL 2 MG TAB PO PRN (16:20)
[2018-10-26] MEDS: SCOPOLAMINE 1.5 MG TDSY TD SCH (16:25)
--- NOTE | 2018-10-26 16:25 | Hospitalist Progress Note ---
Date of Service October 26, 2018 Assessment & Plan (1) SBO (small bowel obstruction): Xray KUB shows improvement of gas filled dilated small bowel loop with passage of gas in large intestine suggestive of partial /incomplete bowel obstruction vs illeus Symptoms has improved, minimum abdominal pain, minimum nausea, no vomiting, able to pass gas Continue bowel rest with n.p.o., parenteral nutrition with TPN recurrent small bowel obstruction due to metastatic colon Ca repeat CT abdomen /pelvis 10/19/18 : 1. Multiple dilated air and fluid-filled loops of small bowel throughout the abdomen and pelvis suggest ongoing small bowel obstruction, definite transition point is not definitively identified. Soft tissue thickening with hyperdense material about the abdominal right upper quadrant is again seen suggesting surgical suture material. Mild adjacent decompressed loops of bowel within this area may reflect transition point. Continued follow-up recommended. 2. No pneumatosis or pneumoperitoneum. 3. Heterogeneous soft tissue lesion of the right lower quadrant suggests jose metastasis with additional 2.5 cm soft tissue lesion of the presacral distribution suggestive of jose metastasis or peritoneal carcinomatosis. 4. 2.2 cm left hepatic lobe lesion is also suspicious for possible metastatic disease. Continue bowel rest, TPN, attempt conservative approach for spontaneous resolution of obstruction, and any evidence of clinical decline patient will be transferred to tertiary care for surgical intervention, appreciate input from surgery Nausea vomiting has resolved, able to pass gas, had small bowel movement earlier today We will repeat CT abdomen pelvis with IV contrast tomorrow a.m. Plan to start on clears only if CAT scan shows resolution of small bowel obstruction (2) Abdominal pain: Improved due to above -SBO bowel rest , NPO ,IV fluid Continue TPN appreciate input from pain managment On fentanyl patch, dose increased to 100 mcg /72 hrs Status post celiac plexus block plan for permanent celiac plexus block on Tuesday10/31/18 ! 1 pm pt can be discharged later that day afternoon if no further active medical issues (3) Protein calorie malnutrition: Inadequate PO intake due to bowel obstruction and underlying malignancy. Nutrition consulted. Continue TPN, patient will need to to be discharged home on TPN CM updated Continue n.p.o. for recurrent bowel obstruction overall prognosis remains poor (4) Sinus tachycardia: Improved possible due to SBO /abdominal pain cont pain control , on TPN No evidence of pulmonary embolism on CTA of chest. 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 CT of abdomen and pelvis during this admission showed bowel obstruction as discussed above as well as trace ascites, ill-defined soft tissue anterior to the rectum worrisome for neoplastic process, 3.4 cm ileocolic mass (possible jose metastases), 2.2 cm hepatic lesion. pt recently followed at [facility] oncology Dr Fariba Griggs ( # [phone] ; ext [phone]) plan is to follow with [facility] oncology after discharged /medically stable / (7) Abnormal screening computed tomography (CT) of chest: CTA of chest performed to rule out pulmonary embolism. No evidence of PE. Multiple ill-defined nodules were noted in the superior segment of the left lower lobe suggesting possible infectious process. Pulmonary nodules may be secondary to metastatic colon cancer. (8) DVT prophylaxis: SCD's ordered. hols SQ Lovenox for repeated SBO (9) Discharge planning issues: CODE STATUS: Full code Anticipated discharge to home. will need arrangements for home TPN Family Medicine follow-up with Dr. Payne. Medical Oncology follow-up with Dr. Josué Montalvo. Subjective s/p celiac plexaus block yesterday abdominal pain has improved , able to pass gas CT abdomen/pelvis shows persisted small bowel obstruction no complain nausea or vomiting remains NPO with ice chips and sips of water long D/w Pt and today is #18 of hospital admission ( admitted on 10/08/18 with SBO ) no clinical improvement of bowel obstruction pt had oncology visit at [facility] Dr Fariba Griggs on 08/[address] Griggs ( phone # [phone] ext [phone] ) pts over all prognosis remains poor -agressive malignancy with limited /no response to recent chemo not a candidate for any systemic chemo given persisted SBO offers if pt willing to be transferred to [facility] , should go to Surgery /oncology service with consult to [facility] D/w Mr Nava , he wants to be at home for few days before going to [facility] d/w both pt and : will need arrangements for home TPN ( will be arranged through CM and GI /nutritioninst at [facility] ) going home with persisted small bowel obstruction will not be safe-pt can detoriate overnight /developoing bowel ischemia -will need from ER to ER tx to [facility] with surgery /ONC ( [facility] surgery will not be able to do surgery due to complexity /peritoneal carcinometosis ) while in hospital his symptoms could be managed early and rapid tx to [facility] schedule to have permanent Celiac plexus block next week by Dr Velasquez , will be appropritate to finish the procedure here at [facility] ( pain control is the most active issue at this point ) will D/w surgery for repeat imaging Pt and agreeable to stay in hospital for SBO /pain management and till home TPN is arranged Physical Exam Vital Signs (Past 24 Hours): Last Vital Signs Temp 36.5 C 10/26/18 15:36 Pulse 130 H 10/26/18 15:36 Resp 18 10/26/18 15:36 BP 116/81 10/26/18 15:36 Pulse Ox 99 10/26/18 15:36 Constitutional: + ill appearing, + thin, + cachectic and + in distress (Due to abdominal pain mostly localized to right upper quadrant) Eyes: PERRL, conjunctivae normal, anicteric sclerae ENMT: external ear and nose normal, oropharynx normal Mouth: + dry oral mucous membranes (NG tube present, draining dark bilious gastric drainage) Respiratory: normal respiratory effort, lungs clear to auscultation Cardiovascular: Rate/Rhythm: regular rate, regular rhythm and + tachycardic (Sinus tachycardia heart rate in the 110s) Vessels: normal peripheral pulses Extremities: no edema Gastrointestinal (Abdomen): Inspection/Auscultation: normal bowel sounds (minimal), + abdominal surgical scar (healed laparoscopic scar /mid abdominal exp lap healed surgical scar ) and + hypoactive bowel sounds; abdomen not distended (flat) Percussion/Palpation: + abdomen tender (diffusely tender ), + guarding, + abdomen rigid, abdomen soft and + hepatosplenomegaly Musculoskeletal: no cyanosis or clubbing, extremities motor strength 5/5 Skin: no rashes, warm and dry Neurologic: PERRL, EOMI, accommodation nl, no face palsy, no dysarthria Psychiatric: A+Ox3, euthymic affect Orientation: alert and oriented x 3 Eye Contact: good eye contact Affect: + depressed affect (1) Colon cancer Colon location: transverse Qualified Code(s): C18.4 - Malignant neoplasm of transverse colon (2) Abdominal pain Abdominal location: right lower quadrant Qualified Code(s): R10.31 - Right lower quadrant pain (3) Protein calorie malnutrition Protein-calorie malnutrition severity: moderate Qualified Code(s): E44.0 - Moderate protein-calorie malnutrition
[2018-10-26] MEDS ORDERED: CUSTOM CENTRAL PN IV SCH (20:00)
[2018-10-27] MEDS ORDERED: Nursing to Pharmacy Communication ONE ×2 (02:04→16:52)
[2018-10-27] MEDS: HYDROmorphone HCL 2 MG TAB PO PRN ×4 (03:13→19:37)
[2018-10-27 07:30] LABS: BUN Creatinine Ratio 26.1 (10-20); Calcium 7.7 mg/dl (8.5-10.1); Creatinine Clr Calc Pharmacy 103.7 ml/min; Est GFR (African American) 132.1; Magnesium 2.2 mg/dl (1.8-2.4); Phosphorus 4.2 mg/dl (2.5-4.9); Potassium 4.1 mmol/L (3.5-5.1)
[2018-10-27] MEDS: fentaNYL 100 MCG/HR TDSY TD SCH (09:03)
[2018-10-27] MEDS: CHECK FENTANYL PATCH PLACEMENT SCH ×3 (09:03→23:59)
[2018-10-27] MEDS: POLYETHYLENE (MIRALAX) 17 GM PACK PO SCH (09:07)
[2018-10-27] MEDS: SODIUM CHLORIDE 0.9% 1000ML 1,000 ML IV SCH ×2 (09:07→22:07)
[2018-10-27] MEDS: MULTIVITAMIN TAB PO SCH (09:09)
[2018-10-27] MEDS: [UNRECOGNIZED DRUG - REMARK] SCH ×2 (09:09→20:00)
[2018-10-27] MEDS: [UNRECOGNIZED DRUG - REMARK] SCH (09:09)
[2018-10-27] MEDS: ASCORBIC ACID 500 MG TAB PO SCH (09:10)
[2018-10-27 09:25] LABS: Basophils # (auto) 0.03 K/uL (0-0.2); Basophils % (auto) 0.3 %; Eosinophils # (auto) 0.07 K/uL (0-0.5); Eosinophils % (auto) 0.7 %; Hematocrit (blood only) 28.3 % (42-52); Hemoglobin 9.3 g/dL (14.0-18.0); Immature Granulocytes # (auto) 0.03 K/uL (0.00-0.02); Immature Granulocytes % (auto) 0.3 %; Lymphocytes # (auto) 1.85 K/uL (1.2-3.4); Lymphocytes % (auto) 19.6 %; Mean Corpuscular Hgb Conc 32.9 g/dL (32-36); Mean Corpuscular Volume 78.4 fL (80-100); Mean Platelet Volume 9.9 fL (7.4-10.4); Monocytes # (auto) 1.18 K/uL (0.11-0.59); Monocytes % (auto) 12.5 %; Neutrophils # (auto) 6.27 K/uL (1.4-6.5); Neutrophils % (auto) 66.6 %; Platelet Count 405 K/uL (130-400); RDW Coefficient of Variation 13.3 % (11.5-14.5); RDW Standard Deviation 38.4 fL (36.4-46.3); Red Blood Count 3.61 M/uL (4.7-6.1); White Blood Count 9.43 K/uL (4.8-10.8)
--- NOTE | 2018-10-27 09:34 | Hospitalist Progress Note ---
Date of Service October 27, 2018 Assessment & Plan (1) SBO (small bowel obstruction): repeat CT abdomen/pelvis: (+) SBO Gen Surg re-consulted continue TPN for now possible G tube as an outpatient if without improvement (2) Abdominal pain: sp Celiac plexus block plan for permanent block Tues continue IV Dilaudid and PO Dilaudid PRN, Fentanyl patch (3) Protein calorie malnutrition: per Dr. Prado: Inadequate PO intake due to bowel obstruction and underlying malignancy. Nutrition consulted. Continue TPN, patient is highly likely to to be discharged home on TPN Continue n.p.o. for recurrent bowel obstruction (4) Sinus tachycardia: Improved possible due to SBO /abdominal pain cont Iv fluid , pain control No evidence of pulmonary embolism on CTA of chest. 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 CT of abdomen and pelvis during this admission showed bowel obstruction as discussed above as well as trace ascites, ill-defined soft tissue anterior to the rectum worrisome for neoplastic process, 3.4 cm ileocolic mass (possible jose metastases), 2.2 cm hepatic lesion. Management per Medical Oncology. (7) Abnormal screening computed tomography (CT) of chest: CTA of chest performed to rule out pulmonary embolism. No evidence of PE. Multiple ill-defined nodules were noted in the superior segment of the left lower lobe suggesting possible infectious process. Pulmonary nodules may be secondary to metastatic colon cancer. (8) DVT prophylaxis: SCD's ordered. held SQ Lovenox for repeated SBO (9) Discharge planning issues: CODE STATUS: Full code Anticipated discharge to home. Family Medicine follow-up with Dr. Payne. Medical Oncology follow-up with Dr. Josué Montalvo. Subjective ff up for SBO seen resting in bed, comfortable states pain is mild-moderate celiac plexus block somewhat wearing off no nausea/vomiting, tolerating water by mouth, (+) Flatus, no BMs no other symptoms Physical Exam Vital Signs (Past 24 Hours): Last Vital Signs Temp 36.4 C L 10/27/18 07:23 Pulse 114 H 10/27/18 07:23 Resp 16 10/27/18 07:23 BP 128/83 10/27/18 07:23 Pulse Ox 98 10/27/18 07:23 Physical Exam: General- oriented x 2, not in distress, speaks in sentences with no effort or accessory muscle use Eyes- anicteric Neck- no JVD Lungs- clear breath sounds bilaterally, no rales/wheezes Heart- normal rate, regular rhythm; no murmurs Abdomen- normal bowel sounds, nondistended, soft, nontender Extremities- no pretibial edema, no calf tenderness Neuro- alert, oriented x 3; no gross focal neurologic deficits Skin- warm & dry Results & Data Laboratory Results Laboratory Results - last 24 hr 10/27/18 10/27/18 06:27 06:31 WBC 9.43 RBC 3.61 L Hgb 9.3 L Hct 28.3 L MCV 78.4 L MCH 25.8 MCHC 32.9 RDW Std Deviation 38.4 RDW Coeff of Doug 13.3 Plt Count 405 H MPV 9.9 Immature Gran % (Auto) 0.3 Neut % (Auto) 66.6 Lymph % (Auto) 19.6 [place] % (Auto) 12.5 Eos % (Auto) 0.7 Baso % (Auto) 0.3 Immature Gran # (Auto) 0.03 H Neut # (Auto) 6.27 Lymph # (Auto) 1.85 [place] # (Auto) 1.18 H Eos # (Auto) 0.07 Baso # (Auto) 0.03 Sodium 136 Potassium 4.1 Chloride 105 Carbon Dioxide 26 Anion Gap 5.0 BUN 22 H D Creatinine 0.83 D Est Cr Clr Drug Dosing 103.7 Est GFR ( Amer) 132.1 Est GFR (Non-Af Amer) 114.0 BUN/Creatinine Ratio 26.1 H Glucose 123 H Calcium 7.7 L Phosphorus 4.2 Magnesium 2.2 (1) Colon cancer Colon location: transverse Qualified Code(s): C18.4 - Malignant neoplasm of transverse colon (2) Abdominal pain Abdominal location: right lower quadrant Qualified Code(s): R10.31 - Right lower quadrant pain (3) Protein calorie malnutrition Protein-calorie malnutrition severity: moderate Qualified Code(s): E44.0 - Moderate protein-calorie malnutrition
--- NOTE | 2018-10-27 09:48 | Pain Management Progress Note ---
Date of Service October 27, 2018 Assessment & Plan (1) Abdominal pain: * Improved symptoms after right-sided diagnostic celiac plexus block. * Recommend neurolytic celiac plexus block. A lengthy discussion was had with the patient today regarding long-term analgesia. Treatment was offered to pat ient included continued treatment with use of opioids, addition of anti- neuropathic medications, as well as a neurolytic celiac plexus block. Risks associated with a block were discussed with the patient including possibility of infection, bleeding, injury to blood vessels that suppl injury to internal organs y the spinal cord, * nerve injury, including injury spinal cord resulting in paralysis. Benefits including pain relief and reduction in the opiate usage and improve quality of life were discussed with the patient. His questions were answered in detail to his understanding. He reports today that he understands the risks and the benefit including any catastrophic and wants to proceed. * Tentatively, patient scheduled to undergo neurolytic celiac plexus block with anhydrous alcohol on coming Tuesday. Patient discharged prior to that, please advise so that patient can be brought as an outpatient on next Tuesday. It is anticipated he will be discharged same day after the procedure. Patient is an inpatient, then will reevaluate patient on rounds on Tuesday and he can be discharged after the procedure on Tuesday. Abdominal location: right lower quadrant Qualified Code(s): R10.31 - Right lower quadrant pain Present on Admission?: Yes (2) SBO (small bowel obstruction): Present on Admission?: Yes (3) Colon cancer: Colon location: transverse Qualified Code(s): C18.4 - Malignant neoplasm of transverse colon Present on Admission?: Yes (4) Peritoneal metastases: Present on Admission?: Yes Subjective Mr. Browne reports he obtained significant relief of his RUQ abdominal pain after diagnostic celiac plexus block up until yesterday. Today he reports recurrence of his typical symptoms in the right upper quadrant. He also experienced significant relief of his right distal thoracolumbar spine pain after the celiac plexus block. He denied experience any side effects from the block. Abdominal CT scan demonstrated some air bubbles near the right crura of the diaphragm which is probably from the injectate from the celiac plexus block. Patient tonight scheduled to undergo a neurolytic side effects of block on next Tuesday. Pain Assessment Pain Assessment Full Body Front + Back: 1. Right upper quadrant abdominal pain 2. Referred back pain in the thoracolumbar spine region [facility] Combined Pain Scale: 7-Severe - Pain prevents productive activity. Impossible to tolerate. Physical Exam Vital Signs (Past 24 Hours): Last Vital Signs Temp 36.4 C L 10/27/18 07:23 Pulse 114 H 10/27/18 07:23 Resp 16 10/27/18 07:23 BP 128/83 10/27/18 07:23 Pulse Ox 98 10/27/18 07:23 Constitutional: + ill appearing and + cachectic Gastrointestinal (Abdomen): Percussion/Palpation: + abdomen tender (Right upper quadrant) and + abdominal mass (Right upper quadrant liver) Hypoactive bowel sounds Psychiatric: Orientation: alert and oriented x 3 Insight: good insight
--- NOTE | 2018-10-27 12:02 | Surgery Progress Note ---
Date of Service October 27, 2018 Assessment & Plan (1) SBO (small bowel obstruction): [facility] to metastatic colon cancer and peritoneal carinomatosis SBO was resolving however patient developed increasing pain post prandial on 10/18 with inability to eat without discomfort and decrease bowel function (decreased flatus). Repeat CT scan on 10/19/18 showing multiple dilated air and fluid filled loops of small bowel throughout abdomen and pelvis suggesting ongoing small bowel obstruction however definite transition point is not definitively identified. Again seen are a RLQ mass and 2.5 cm soft tissue lesion of the presacral region suggesting jose metastasis vs peritoneal carcinomatosis and 2.2 cm left hepatic lobe lesion suspicious for metastatic disease. Again repeat CT scan on 10/26/2018 showed similar findings of SBO and carcinomatosis. Tiny extraluminal gas bubbles seen at diaphargmatic amanda but felt to be due to recent celiac pelxus block. Plan: Unfortunately patient has chronic abdominal pain and partial SBO given abdominal carcinomatosis and metastatic disease. He was improving with advancement of diet but now only tolerating 1 cup of water daily. He is not nauseated or vomiting and passing gas so therefore he is not completely obstructed. Tolerating TPN. Dr. Rose discussed with patient the option of possible venting G-tube vs open g-tube for symptomatic relief if he were to become nauseated however this would not relieve the obstruction. Would recommend [facility] to evaluate possibility of placement of venting G-tube/open g- tube given complexity of case to where there would be surgical oncologist available. This may be done as an outpatient if pateient were to be discharged home as he is not having any nausea or vomiting and is stable. At this time, there is no indication for surgical intervention for SBO due to carcinomatosis and metastasis. Of course in the instance of any acute abdominal findings or signs of complete obstruction/ischemia than surgical intervention would be indicated and again would recommend transfer to tertiary center for any surgical intervention given complexity of case. Patient would prefer any surgical intervention to be done at [place]. Discussed above recommendations with Dr. Coffey. Continue pain management as above continue tpn and liquids as tolerated Dr. Rose has seen and examined pt, agrees with above. Supervising Physician Co-Signing Physician Notes I have seen and evaluated the patient and agree with the documentation above as by Nadine Gerard PA-C. Unfortunate 33 yo male with metastatic colon cancer and carcinomatosis. Persistent SBO on CT scan, likely partial obstruction given patient lack of nausea, passing flatus, and BMs (though only once every couple of days). Pt voices that he is unable to receive chemo while having a bowel obstruction. Unfortunately there are no great surgical options in this case. Discussed that in some situations there is an option for a gastrostomy tube, with possible jejunal extension. However, given carcinomatosis this surgery would potentially be complex, and might be too great of risk to attempt endoscopic PEG. This tube is often used for venting for symptomatic relief, and would not relieve his obstruction. Would recommend evaluation at a tertiary care facility for further evaluation. Would recommend that any intervention be completed at a tertiary care center in the absence of absolute emergent surgical intervention where transfer would lead to a detrimental delay in care. Subjective pain has increased compared to yesterday, the celiac plexus block helped but is starting to wear off. no nausea or vomiting only able to drink large glass of water daily small amount of flatus no bowel movement Physical Exam Vital Signs (Past 24 Hours): Last Vital Signs Temp 36.5 C 10/27/18 11:18 Pulse 130 H 10/27/18 11:18 Resp 16 10/27/18 11:18 BP 105/74 10/27/18 11:18 Pulse Ox 98 10/27/18 11:18 Constitutional: WD/WN, vitals as above + thin, + frail appearing and cooperative; no acute distress and no altered mental status Neck: trachea midline Respiratory: normal respiratory effort; no respiratory distress, no labored breathing and no retractions Gastrointestinal (Abdomen): Inspection/Auscultation: abdomen normal to inspection and + abdomen distended Percussion/Palpation: + abdomen tender (RUQ and RLQ) and abdomen soft; no guarding and abdomen not rigid Skin: no rashes, warm and dry Psychiatric: A+Ox3, euthymic affect Orientation: alert and oriented x 3 Eye Contact: good eye contact Affect: + flat affect Results & Data Laboratory Results 10/27/18 10/27/18 Range/Units 06:31 06:27 WBC 9.43 (4.8-10.8) K/uL RBC 3.61 L (4.7-6.1) M/uL Hgb 9.3 L (14.0-18.0) g/dL Hct 28.3 L (42-52) % MCV 78.4 L (80-100) fL MCH 25.8 (25-34) pg MCHC 32.9 (32-36) g/dL RDW Std Deviation 38.4 (36.4-46.3) fL RDW Coeff of Doug 13.3 (11.5-14.5) % Plt Count 405 H (130-400) K/uL MPV 9.9 (7.4-10.4) fL Immature Gran % (Auto) 0.3 % Neut % (Auto) 66.6 % Lymph % (Auto) 19.6 % [place] % (Auto) 12.5 % Eos % (Auto) 0.7 % Baso % (Auto) 0.3 % Immature Gran # (Auto) 0.03 H (0.00-0.02) K/uL Neut # (Auto) 6.27 (1.4-6.5) K/uL Lymph # (Auto) 1.85 (1.2-3.4) K/uL [place] # (Auto) 1.18 H (0.11-0.59) K/uL Eos # (Auto) 0.07 (0-0.5) K/uL Baso # (Auto) 0.03 (0-0.2) K/uL Sodium 136 (136-145) mmol/L Potassium 4.1 (3.5-5.1) mmol/L Chloride 105 (98-107) mmol/L Carbon Dioxide 26 (21-32) mmol/L Anion Gap 5.0 (3-11) BUN 22 H D (7-18) mg/dl Creatinine 0.83 D (0.6-1.4) mg/dl Est Cr Clr Drug Dosing 103.7 ml/min Est GFR ( Amer) 132.1 Est GFR (Non-Af Amer) 114.0 BUN/Creatinine Ratio 26.1 H (10-20) Glucose 123 H (70-99) mg/dl Calcium 7.7 L (8.5-10.1) mg/dl Phosphorus 4.2 (2.5-4.9) mg/dl Magnesium 2.2 (1.8-2.4) mg/dl Diagnostic Findings CT abd pelvis IV con only CLINICAL HISTORY: colon ca /bowel obstruction COMPARISON STUDY: 10/19/2018 TECHNIQUE: A dose lowering technique was utilized adhering to the principles of ALARA. CT DOSE: 308.32 mGycm FINDINGS: Lower chest: The heart is normal in size and configuration, without pericardial effusion. The lung bases and pleural spaces are clear. Liver: There is a persistent 2.5 cm hypodense mass within the left lobe of the liver abutting the gallbladder fossa Gallbladder: Surgically absent Spleen: Normal in size and attenuation. Pancreas: Unremarkable. Adrenal glands: Unremarkable. Kidneys: There is symmetric renal cortical enhancement. The kidneys are normal in size without hydronephrosis. Bowel: There are persistent dilated fluid-filled small bowel loops with a relatively decompressed colon. The findings are again indicative of a small bowel obstruction. Peritoneum: There is a 3 cm central mesenteric mass/adenopathy. There is a calcified anterior peritoneal/omental nodule measuring 41 mm. There is trace free fluid. There are unexplained tiny gas bubbles within or adjacent to the amanda the diaphragm extending to the posterior medial liver capsule. The etiology of this extraluminal gas is not known. Vasculature: The abdominal aorta is normal in course and caliber. Adenopathy: None. Pelvic viscera: There is a persistent 27 mm soft tissue nodule abutting the anterior rectum. Skeletal structures: No destructive osseous lesions are seen. IMPRESSION: 1. Persistent small bowel obstruction. 2. Suspected peritoneal carcinomatosis. Persistent soft tissue mass adjacent to the anterior rectum. Persistent soft tissue mass within the right lower quadrant mesentery. Persistent calcified anterior peritoneal nodule. 3. Persistent 2.5 cm left lobe hepatic lesion 4. Interval development of tiny gas bubbles within or adjacent to the amanda of the right hemidiaphragm extending to the posterior medial liver capsule. The etiology of this extraluminal gas is not known.
[2018-10-27] MEDS: CHECK SCOPOLAMINE PATCH PLACEMENT SCH (17:24)
[2018-10-27] MEDS ORDERED: CUSTOM CENTRAL PN IV SCH (20:00)
[2018-10-27] MEDS ORDERED: LACTATED RINGER'S 1,000 ML IV ONE (22:28)
[2018-10-28] MEDS ORDERED: SODIUM CHLORIDE 0.9% 1000ML 1,000 ML IV SCH ×2 (00:30→16:00)
[2018-10-28] MEDS: [UNRECOGNIZED DRUG - REMARK] SCH (08:31)
[2018-10-28] MEDS: [UNRECOGNIZED DRUG - REMARK] SCH ×2 (08:31→20:03)
[2018-10-28] MEDS: CHECK FENTANYL PATCH PLACEMENT SCH ×3 (08:31→23:43)
[2018-10-28] MEDS: ASCORBIC ACID 500 MG TAB PO SCH (08:32)
[2018-10-28] MEDS: MULTIVITAMIN TAB PO SCH (08:32)
[2018-10-28] MEDS: POLYETHYLENE (MIRALAX) 17 GM PACK PO SCH ×2 (08:32→08:41)
[2018-10-28] MEDS ORDERED: Nursing to Pharmacy Communication ONE (08:36)
[2018-10-28] MEDS: SODIUM CHLORIDE 0.9% 1000ML 1,000 ML IV PRN (08:41)
[2018-10-28] MEDS: CHECK SCOPOLAMINE PATCH PLACEMENT SCH ×2 (15:43→23:43)
--- NOTE | 2018-10-28 18:16 | Hospitalist Progress Note ---
Date of Service October 28, 2018 Assessment & Plan (1) SBO (small bowel obstruction): repeat CT abdomen/pelvis: (+) SBO Gen Surg re-consulted continue TPN for now possible G tube as an outpatient if without improvement as per RN, patient had a small BM later in the afternoon continue NPO, TPN, Miralax (2) Abdominal pain: due to above -SBO On fentanyl patch, dose increased to 100 mcg /72 hrs Status post celiac plexus block plan for permanent celiac plexus block on Tuesday10/31/18 ! 1 pm continue PRN Dilaudid (3) Protein calorie malnutrition: Inadequate PO intake due to bowel obstruction and underlying malignancy. Nutrition consulted. Continue TPN, patient will need to to be discharged home on TPN (4) Sinus tachycardia: Improved possible due to SBO /abdominal pain cont pain control , on TPN No evidence of pulmonary embolism on CTA of chest. 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 CT of abdomen and pelvis during this admission showed bowel obstruction as discussed above as well as trace ascites, ill-defined soft tissue anterior to the rectum worrisome for neoplastic process, 3.4 cm ileocolic mass (possible jose metastases), 2.2 cm hepatic lesion. pt recently followed at [facility] oncology Dr Fariba Griggs ( # [phone] ; ext [phone]) plan is to follow with [facility] oncology after discharged /medically stable / (7) Abnormal screening computed tomography (CT) of chest: CTA of chest performed to rule out pulmonary embolism. No evidence of PE. Multiple ill-defined nodules were noted in the superior segment of the left lower lobe suggesting possible infectious process. Pulmonary nodules may be secondary to metastatic colon cancer. (8) DVT prophylaxis: SCD's ordered. heparin SC TID (9) Discharge planning issues: CODE STATUS: Full code Anticipated discharge to home. will need arrangements for home TPN Family Medicine follow-up with Dr. Payne. Medical Oncology follow-up with Dr. Josué Montalvo. Subjective ff up for SBO seen resting in bed not in distress but does report intermittent cramping on the lower abdomen denies chest pain, dyspnea, palpitations, nausea/vomiting (+) flatus no other symptoms Physical Exam Vital Signs (Past 24 Hours): Last Vital Signs Temp 36.8 C 10/28/18 15:12 Pulse 117 H 10/28/18 15:12 Resp 18 10/28/18 15:12 BP 123/81 10/28/18 15:12 Pulse Ox 98 10/28/18 15:12 Physical Exam: General- oriented x 3, not in distress, speaks in sentences with no effort or accessory muscle use Eyes- anicteric Neck- no JVD Lungs- clear BS BL no rales/wheezes Heart- normal rate, regular rhythm; no murmurs Abdomen- normal bowel sounds, nondistended, soft, mild RLQ tenderness Extremities- mild LE edema l>r, no calf tenderness Neuro- alert, oriented x 3; no gross focal neurologic deficits Skin- warm & dry Results & Data Laboratory Results Laboratory Results - last 24 hr 10/27/18 10/28/18 06:57 07:34 Phosphorus 4.1 TSH 2.410 (1) Abdominal pain Abdominal location: right lower quadrant Qualified Code(s): R10.31 - Right lower quadrant pain (2) Protein calorie malnutrition Protein-calorie malnutrition severity: moderate Qualified Code(s): E44.0 - Moderate protein-calorie malnutrition (3) Colon cancer Colon location: transverse Qualified Code(s): C18.4 - Malignant neoplasm of transverse colon
[2018-10-28] MEDS: HYDROmorphone HCL 2 MG TAB PO PRN ×2 (19:31→23:02)
[2018-10-28] MEDS ORDERED: CUSTOM CENTRAL PN IV SCH (20:00)
[2018-10-28] MEDS: HEPARIN SOD 5,000 UNIT/0.5 ML VIAL SQ SCH (20:59)
[2018-10-29] MEDS: HYDROmorphone INJ 1 MG/ML SYRINGE IV PRN ×3 (01:43→13:36)
[2018-10-29] MEDS: ONDANSETRON INJ 2 MG/ML 2 ML VIAL IV PRN (04:07)
[2018-10-29] MEDS: HEPARIN SOD 5,000 UNIT/0.5 ML VIAL SQ SCH (05:51)
[2018-10-29] MEDS: PROMETHAZINE HCL 12.5 MG in SODIUM CHLORIDE 0.9% 50 ML IV PRN (07:28)
[2018-10-29] MEDS: SODIUM CHLORIDE 0.9% 1000ML 1,000 ML IV PRN (07:29)
[2018-10-29 07:31] VITALS: BP 128/84; TEMP 98.1; O2SAT 99
[2018-10-29] MEDS: CHECK SCOPOLAMINE PATCH PLACEMENT SCH (07:32)
[2018-10-29] MEDS: CHECK FENTANYL PATCH PLACEMENT SCH (07:33)
[2018-10-29] MEDS: [UNRECOGNIZED DRUG - REMARK] SCH (07:33)
[2018-10-29] MEDS: [UNRECOGNIZED DRUG - REMARK] SCH (07:33)
[2018-10-29] MEDS ORDERED: Nursing to Pharmacy Communication ONE (07:39)
[2018-10-29] MEDS: ASCORBIC ACID 500 MG TAB PO SCH (07:43)
[2018-10-29] MEDS: MULTIVITAMIN TAB PO SCH (07:43)
[2018-10-29] MEDS: POLYETHYLENE (MIRALAX) 17 GM PACK PO SCH (07:44)
[2018-10-29] MEDS ORDERED: SODIUM CHLORIDE 0.9% 1000ML 1,000 ML IV SCH (08:15)
[2018-10-29] MEDS: HYDROmorphone HCL 2 MG TAB PO PRN (08:24)
[2018-10-29 08:48] LABS: Hematocrit (blood only) 30.8 % (42-52); Mean Corpuscular Hgb Conc 32.5 g/dL (32-36); Mean Corpuscular Volume 78.8 fL (80-100); Mean Platelet Volume 10.6 fL (7.4-10.4); Platelet Count 401 K/uL (130-400); RDW Coefficient of Variation 13.7 % (11.5-14.5); RDW Standard Deviation 38.6 fL (36.4-46.3); Red Blood Count 3.91 M/uL (4.7-6.1)
[2018-10-29 09:13] LABS: Basophils # (auto) 0.01 K/uL (0-0.2); Basophils % (auto) 0.1 %; Eosinophils # (auto) 0.05 K/uL (0-0.5); Eosinophils % (auto) 0.4 %; Immature Granulocytes # (auto) 0.05 K/uL (0.00-0.02); Immature Granulocytes % (auto) 0.4 %; Lymphocytes # (auto) 1.71 K/uL (1.2-3.4); Lymphocytes % (auto) 13.7 %; Monocytes # (auto) 1.23 K/uL (0.11-0.59); Monocytes % (auto) 9.8 %; Neutrophils # (auto) 9.45 K/uL (1.4-6.5); Neutrophils % (auto) 75.6 %
[2018-10-29 09:24] LABS: Alanine Aminotransferase 77 U/L (12-78); Aspartate Aminotransferase 64 U/L (15-37); Blood Urea Nitrogen 19 mg/dl (7-18); Carbon Dioxide 30 mmol/L (21-32); Chloride 102 mmol/L (98-107); Creatinine Clr Calc Pharmacy 176.8 ml/min; Est GFR (African American) > 150.0; Est GFR (Non-African American) 140.4; Glucose 102 mg/dl (70-99); Magnesium 2.2 mg/dl (1.8-2.4); Phosphorus 3.8 mg/dl (2.5-4.9); Potassium 4.6 mmol/L (3.5-5.1); Sodium 135 mmol/L (136-145); Triglycerides 42 mg/dl (0-150)
--- NOTE | 2018-10-29 10:20 | CT Scan Report ---
ABDOMEN AND PELVIS CT WITHOUT CONTRAST CT DOSE: 286.96 mGy.cm HISTORY: Acute nausea with generalized abdominal pain. History of colon cancer and small bowel obstru ction. nausea, abdominal pain, ff up for SBO TECHNIQUE: Multiaxial CT images of the abdomen and pelvis were performed without contrast. A dose lo wering technique was utilized adhering to the principles of ALARA. COMPARISON STUDY: CT abdomen pelvis 10/26/2018. FINDINGS: Lung bases appear generally clear. Resolution of the previously described extra luminal air by the ri ght diaphragmatic amanda. No definite pneumatosis or pneumoperitoneum. No portal venous air. Study is l imited without the use of contrast. Imaged lung bases are generally clear. Ill-defined left hepatic lobe mass measuring approximately 2.5 cm better seen on comparison study. Liver is otherwise unremarkable. Spleen, pancreas and adrenal gl ands are within normal limits. Bilateral nonobstructing nephrolithiasis. No ureteral calculi or obstr uctive uropathy identified. Urinary bladder is unremarkable. Aorta and IVC are within normal limits. Persistent and mildly progressed dilated fluid-filled loops of small bowel measuring up to 5.2 cm tra nsversely compatible with ongoing small bowel obstruction. Small bowel loops measuring up to 5.6 cm o n comparison study. Moderate to extensive gastric distention has progressed from comparison. Calcifie d 4.1 cm lesion about the anterior right upper abdomen with 2.8 cm mass adjacent anterior rectum. Per sistent soft tissue mass of the right lower quadrant mesentery, also better seen on comparison contra st-enhanced exam measuring approximately 3.2 cm. The large bowel is predominately decompressed. Gynec omastia with mild generalized body wall edema. No destructive bony lesions identified. Minimal endpla te sclerosis with central endplate compression of less than 20% involving the L1 vertebral body is un changed. IMPRESSION: 1. Persistent mildly progressed small bowel distention with progressive gastric distention compatible with ongoing small bowel obstruction. 2. No pneumatosis, pneumoperitoneum or portal venous gas identified. Resolution of the previously jonh cribed extraluminal air adjacent to the right diaphragmatic amanda. 3. Limited study without the use of contrast. Suspected peritoneal carcinomatosis with soft tissue ma ss anterior to the rectum and irregular lesion of the right lower quadrant mesentery with calcified a nterior peritoneal nodule all unchanged from comparison. 4. Ill-defined lesion of the left hepatic lobe, better seen on comparison study. Electronically signed by: Artur Ortega M.D. 10/29/2018 10:18 AM
[2018-10-29 11:22] LABS: Bilirubin,Total 0.4 mg/dl (0.2-1); Prealbumin 13.7 mg/dl (20-40)
--- NOTE | 2018-10-29 11:43 | Hospitalist Progress Note ---
Date of Service October 29, 2018 Assessment & Plan (1) SBO (small bowel obstruction): Patient presented with increasing nausea and abdominal pain Neurosurgery consulted, managed with conservative treatment including bowel rest, IV fluids Eventually TPN was started Symptoms gradually resolved Initial plan is to continue TPN as an outpatient and follow-up with [facility] for surgical oncology evaluation However on October 29, 2018, patient developed increasing nausea and lower abdomi nal pain CT abdomen and pelvis done October 29, 2018 showing progression of small bowel obstruction, moderate to severe distention of stomach 1. Persistent mildly progressed small bowel distention with progressive gastric distention compatible with ongoing small bowel obstruction. 2. No pneumatosis, pneumoperitoneum or portal venous gas identified. Resolution of the previously described extraluminal air adjacent to the right diaphragmatic amanda. 3. Limited study without the use of contrast. Suspected peritoneal carcinomatosis with soft tissue mass anterior to the rectum and irregular lesion of the right lower quadrant mesentery with calcified anterior peritoneal nodule all unchanged from comparison. 4. Ill-defined lesion of the left hepatic lobe, better seen on comparison study. Discussed case with medical oncologist Dr. Montalvo, who is transferring patient to [facility] for tertiary level of care Discussed with attending general surgeon transportation security officer Dr. Barrios, recommend placement of NG tube to suction, recommend to transfer to tertiary level of care for possible surgical intervention continue NPO, TPN, Miralax Discussed case with patient at length He is agreeable to transfer to [facility] today Discussed with [facility] medical oncologist Dr. Gonzales He kindly accepted patient for transfer (2) Abdominal pain: Secondary to small bowel obstruction Pain management service consulted Status post temporary celiac plexus block which afforded relief of pain but seems to be wearing off now plan for permanent celiac plexus block on Tuesday10/31/18 On fentanyl patch, dose increased to 100 mcg /72 hrs Patient on as needed IV and p.o. Dilaudid (3) Protein calorie malnutrition: Inadequate PO intake due to bowel obstruction and underlying malignancy. Nutrition consulted. Patient maintained on TPN while admitted (4) Sinus tachycardia: Likely secondary to SBO /abdominal pain cont pain control , on TPN , IV fluids No evidence of pulmonary embolism on CTA of chest. 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 Follows locally with Dr. Josué Montalvo, recommend to transfer to [facility] for tertiary level of care at this time (7) Abnormal screening computed tomography (CT) of chest: CTA of chest performed to rule out pulmonary embolism. No evidence of PE. No pathologically enlarged axillary mediastinal or hilar lymph nodes were visualized. There was no evidence of thoracic aortic dilatation. There were no pulmonary artery filling defects to indicate acute pulmonary embolism. No pleural effusions are visualized. There are multiple ill-defined nodules within the superior segment of the left lower lobe with a tree-in-bud configuration. The findings are most consistent with an infectious process. Note is made of a hyperlucent left lower lobe, finding similar to a December [address] scan. This is not felt to be of acute clinical significance. --Will need further evaluation and management of ill defined nodules (8) DVT prophylaxis: SCD's heparin SC TID (9) Discharge planning issues: Transfer to [facility] today Subjective ff up for SBO Seen sitting up in bed, appears weak but not in distress Patient had increasing nausea and lower abdominal pain overnight No syeda emesis Minimal flatus, no bowel movement No chest pain, shortness of breath, palpitations, dizziness no other symptoms Physical Exam Vital Signs (Past 24 Hours): Last Vital Signs Temp 36.7 C 10/29/18 07:30 Pulse 131 H 10/29/18 07:30 Resp 18 10/29/18 07:30 BP 128/84 10/29/18 07:30 Pulse Ox 99 10/29/18 07:30 Physical Exam: General- oriented x 3, not in distress, speaks in sentences with no effort or accessory muscle use Eyes- anicteric Neck- no JVD Lungs- clear breath sounds bilaterally, no rales/wheezes Heart- normal rate, regular rhythm; no murmurs Abdomen-hypoactive bowel sounds, nondistended, soft, mild right lower quadrant tenderness Extremities-mild left lower extremity edema, erythema/warmth/no calf tenderness Neuro- alert, oriented x 3; no gross focal neurologic deficits Skin- warm & dry Results & Data Laboratory Results Laboratory Results - last 24 hr 10/29/18 10/29/18 10/29/18 08:21 08:21 10:36 WBC 12.50 H RBC 3.91 L Hgb 10.0 L Hct 30.8 L MCV 78.8 L MCH 25.6 MCHC 32.5 RDW Std Deviation 38.6 RDW Coeff of Doug 13.7 Plt Count 401 H MPV 10.6 H Immature Gran % (Auto) 0.4 Neut % (Auto) 75.6 Lymph % (Auto) 13.7 [place] % (Auto) 9.8 Eos % (Auto) 0.4 Baso % (Auto) 0.1 Immature Gran # (Auto) 0.05 H Neut # (Auto) 9.45 H Lymph # (Auto) 1.71 [place] # (Auto) 1.23 H Eos # (Auto) 0.05 Baso # (Auto) 0.01 Sodium 135 L Potassium 4.6 Chloride 102 Carbon Dioxide 30 Anion Gap 3.0 BUN 19 H Creatinine 0.50 L Est Cr Clr Drug Dosing 176.8 Est GFR ( Amer) > 150.0 Est GFR (Non-Af Amer) 140.4 BUN/Creatinine Ratio 38.0 H Glucose 102 H Calcium 8.0 L Phosphorus 3.8 Magnesium 2.2 Total Bilirubin 0.4 AST 64 H ALT 77 Alkaline Phosphatase 159 H Prealbumin 13.7 L Triglycerides 42 (1) Colon cancer Colon location: transverse Qualified Code(s): C18.4 - Malignant neoplasm of transverse colon (2) Abdominal pain Abdominal location: right lower quadrant Qualified Code(s): R10.31 - Right lower quadrant pain (3) Protein calorie malnutrition Protein-calorie malnutrition severity: moderate Qualified Code(s): E44.0 - Moderate protein-calorie malnutrition
--- NOTE | 2018-10-29 12:35 | Discharge Summary ---
Date of Service October 29, 2018 Admission HPI Per Admitting Provider 33 year old male with history of colon cancer with peritoneal metastases who presents to the ED with nausea and worsening abdominal pain. Patient reports he has chronic right sided abdominal pain which has been worsening over the past several weeks. He notes struggling with constipation over the past week. He has taken colace, Miralax, and magnesium citrate. He developed diarrhea today. No bright red bleeding per rectume or dark tarry stools. He reports minimal flatus passing. He reports last normal bowel movement was a couple of weeks ago. He developed vomiting while in the ED. No coffee ground emesis or hematemesis. He denies chest pain and shortness of breath. No lightheadedness, dizziness, diaphoresis, or syncopal events. He denies fever and chills. No urinary symptoms. In the ED, CT abd/pelvis shows a high-grade small bowel obstruction with transition point likely within the right upper quadrant. Labs show K+ 2.9. Patient was given IVF, K+ replacement, IV Zofran, and IV Dilaudid. Admission Exam Per Admitting Provider Vital Signs (Past 24 Hours): Last Vital Signs Temp 36.7 C 10/08/18 14:10 Pulse 119 H 10/08/18 17:43 Resp 20 10/08/18 17:43 BP 132/90 10/08/18 17:43 Pulse Ox 99 10/08/18 17:43 Constitutional: + thin vitals as above Eyes: PERRL, conjunctivae normal, anicteric sclerae ENMT: external ear and nose normal, oropharynx normal Respiratory: normal respiratory effort, lungs clear to auscultation Cardiovascular: Rate/Rhythm: regular rhythm and + tachycardic Vessels: normal peripheral pulses Extremities: no edema Gastrointestinal (Abdomen): Inspection/Auscultation: abdomen not distended (flat) and + abnormal bowel sounds (minimal) Percussion/Palpation: + abdomen tender (right abdominal ); no hepatosplenomegaly Musculoskeletal: no cyanosis or clubbing, extremities motor strength 5/5 Skin: no rashes, warm and dry Neurologic: PERRL, EOMI, accommodation nl, no face palsy, no dysarthria Psychiatric: A+Ox3, euthymic affect Principal Diagnosis SMALL BOWEL OBSTRUCTION, COLON CANCER STAGE III WITH SOFT TISSUE MESENTERIC MASSES Discharge Exam Vital Signs (Past 24 Hours): Last Vital Signs Temp 36.7 C 10/29/18 07:30 Pulse 131 H 10/29/18 07:30 Resp 18 10/29/18 07:30 BP 128/84 10/29/18 07:30 Pulse Ox 99 10/29/18 07:30 Physical Exam: General- oriented x 3, not in distress, speaks in sentences with no effort or accessory muscle use Eyes- anicteric Neck- no JVD Lungs- clear breath sounds bilaterally, no rales/wheezes Heart- normal rate, regular rhythm; no murmurs Abdomen-hypoactive bowel sounds, nondistended, soft, mild right lower quadrant tenderness Extremities-mild left lower extremity edema, erythema/warmth/no calf tenderness Neuro- alert, oriented x 3; no gross focal neurologic deficits Skin- warm & dry Discharge Data Allergies Allergy/AdvReac Type Severity Reaction Status Date / Time asparagus Allergy Intermediate "small Verified 10/08/18 15:36 bumps on skin" Consultations 10/08/18 17:46 ED Decision to Admit Stat 10/08/18 20:28 Consult General Surgery Routine 10/19/18 07:23 Consult Pain Management Routine 10/29/18 11:31 Burn CD for patient Routine Procedures Performed Operation Date: 10/25/18 07:15 Actual Procedures p Celiac Lumbar Sympathetic Injection(Not Applicable) - Wisam Velasquez MD, [facility] Ordered Studies 10/08/18 14:19 CT abd pelvis IV con only Stat [facility], [place] [phone] CT Scan Report Patient: JOVI MORALES Date: 10/08/18 MR#: [id number]: [address] Acct ID:[id number]: Date: 1985[facility] Zip: [place] [address] Age: 33Location: ED Sex: M Room/Bed: Att Phy: Diagnosis: NAUSEA, VOMITING, ABD PAIN- HX BOWEL OBSTRUCTION Chen Phy: Natalie Payne Service Date: 10/08/18 Fam Phy: Natalie Payne Interpreting Phy: Chris Ayers MD Admit Phy: Ordering Phy: Addison Espinoza M.D. cc: ~ CT OF THE ABDOMEN AND PELVIS WITH CONTRAST CLINICAL HISTORY: Abdominal pain. Diarrhea, nausea and vomiting. COMPARISON STUDY: CT of the abdomen and pelvis January 15, 2018. TECHNIQUE: Following IV administration of 94 mL of Optiray-320, axial images of the abdomen and pelvis were obtained from the lung bases to the proximal femurs. Images were reviewed in the axial, sagittal, and coronal planes. IV contrast was administered without complication. Automated exposure control was utilized for the study. A dose lowering technique was utilized adhering to the principles of ALARA. CT DOSE: 362.80 mGycm FINDINGS: Relative lucency/oligemia visualized portions of the left lower lobe is noted. No pneumatosis, free air or portal venous gas is present. Mild biliary ductal dilatation is unchanged and likely related to prior cholecystectomy. There is an ill-defined 2.2 cm hypodensity within segment 4 of the liver. The spleen, adrenal glands and kidneys are normal. There is no pancreatic ductal dilatation. There is no hydronephrosis. The nephrograms are symmetric. The stomach and proximal to mid small bowel are distended and fluid-filled. Transition point is likely within the right upper quadrant. Distal small bowel is markedly decompressed. Soft tissue thickening within the right upper quadrant with calcification is noted. There is also an ill-defined 3.4 cm mesenteric lesion within the right mid abdomen shown on image 212 of 466. There is also apparent nodularity within the pelvis anterior to the rectum which measures 2.4 cm. There is trace ascites. Major vasculature is patent. There are no suspicious osseous lesions. There is hyperdense material within the appendix without evidence for acute appendicitis. Mild loss of height of the superior endplate of L1 is noted. Postsurgical findings within the proximal transverse colon are noted. IMPRESSION: 1. Findings consistent with a high-grade small bowel obstruction with transition point likely within the right upper quadrant. Adjacent soft tissue thickening and associated hyperdense material which may reflect calcification or surgical material. This may account for the bowel obstruction and raises the possibility of malignancy. Correlation with history of malignancy is recommended given possible peritoneal carcinomatosis. Trace ascites. No pneumatosis, free air or portal venous gas. Placement of a nasogastric tube might be considered as well surgical consultation. 2. Ill-defined soft tissue anterior to the rectum which is worrisome for a neoplastic process such as peritoneal carcinomatosis. 3.4 cm ileocolic mass which may reflect jose metastasis. Indeterminate new 2.2 cm hepatic lesion. A PET/CT may be of benefit in further evaluation of these findings. 10/10/18 12:52 CT angio chest PE protocol Stat CT ANGIOGRAM OF THE CHEST CLINICAL HISTORY: Atypical chest pain and shortness of breath COMPARISON STUDY: No previous studies for comparison. TECHNIQUE: Following the IV administration of 119 mL of Optiray-320, CT angiogram of the thorax was performed from the thoracic inlet to the lung bases utilizing the pulmonary embolus protocol. Images are reviewed in the axial, sagittal, and coronal planes. IV contrast was administered without complication. MIP imaging was performed. A dose lowering technique was utilized adhering to the principles of ALARA. CT DOSE: 218.05 mGy.cm FINDINGS: No pathologically enlarged axillary mediastinal or hilar lymph nodes were visualized. There was no evidence of thoracic aortic dilatation. There were no pulmonary artery filling defects to indicate acute pulmonary embolism. No pleural effusions are visualized. There are multiple ill-defined nodules within the superior segment of the left lower lobe with a tree-in-bud configuration. The findings are most consistent with an infectious process. Note is made of a hyperlucent left lower lobe, finding similar to a December [address] scan. This is not felt to be of acute clinical significance. There is an indwelling nasogastric tube. IMPRESSION: 1. No evidence of acute pulmonary embolism 2. Multiple ill-defined nodules in the superior segment the left lower lobe with a tree-in-bud configuration. The findings are most consistent with an infectious process. 10/10/18 12:53 US venous doppler LE BI Stat US venous doppler LE BI CLINICAL HISTORY: Atypical chest pain. Shortness of breath. Possible pulmonary embolism. COMPARISON STUDY: No previous studies for comparison. FINDINGS: Real-time and color flow Doppler imaging were performed. Flow was seen within the femoral, popliteal and calf veins with no intraluminal thrombus demonstrated. The saphenous vein is patent. IMPRESSION: No evidence of lower extremity DVT. 10/29/18 08:29 [phone] Scan Report Patient: JOVI MORALES Date: 10/08/18 MR#: [id number]: [address] Acct ID:[id number]: Date: 1985[facility] Zip: [place] [address] Age: 33Location: 4E Sex: M Room/Bed: [facility] Att Phy: Thanh Coffey MDDiagnosis: SMALL BOWEL OBSTRUCTION Chen Phy: Natalie Payne Service Date: 10/29/18 [facility] Phy: Natalie Payne Interpreting Phy: Thang Ortega Admit Phy: Pamela Prado M.D. Ordering Phy: Thanh Coffey MD cc: ~ ABDOMEN AND PELVIS CT WITHOUT CONTRAST CT DOSE: 286.96 mGy.cm HISTORY: Acute nausea with generalized abdominal pain. History of colon cancer and small bowel obstruction. nausea, abdominal pain, ff up for SBO TECHNIQUE: Multiaxial CT images of the abdomen and pelvis were performed without contrast. A dose lowering technique was utilized adhering to the principles of ALARA. COMPARISON STUDY: CT abdomen pelvis 10/26/2018. FINDINGS: Lung bases appear generally clear. Resolution of the previously described extra luminal air by the right diaphragmatic amanda. No definite pneumatosis or pneumoperitoneum. No portal venous air. Study is limited without the use of contrast. Imaged lung bases are generally clear. Ill-defined left hepatic lobe mass measuring approximately 2.5 cm better seen on comparison study. Liver is otherwise unremarkable. Spleen, pancreas and adrenal glands are within normal limits. Bilateral nonobstructing nephrolithiasis. No ureteral calculi or obstructive uropathy identified. Urinary bladder is unremarkable. Aorta and IVC are within normal limits. Persistent and mildly progressed dilated fluid-filled loops of small bowel measuring up to 5.2 cm transversely compatible with ongoing small bowel obstruction. Small bowel loops measuring up to 5.6 cm on comparison study. Moderate to extensive gastric distention has progressed from comparison. Calcified 4.1 cm lesion about the anterior right upper abdomen with 2.8 cm mass adjacent anterior rectum. Persistent soft tissue mass of the right lower quadrant mesentery, also better seen on comparison contrast-enhanced exam measuring approximately 3.2 cm. The large bowel is predominately decompressed. Gynecomastia with mild generalized body wall edema. No destructive bony lesions identified. Minimal endplate sclerosis with central endplate compression of less than 20% involving the L1 vertebral body is unchanged. IMPRESSION: 1. Persistent mildly progressed small bowel distention with progressive gastric distention compatible with ongoing small bowel obstruction. 2. No pneumatosis, pneumoperitoneum or portal venous gas identified. Resolution of the previously described extraluminal air adjacent to the right diaphragmatic amanda. 3. Limited study without the use of contrast. Suspected peritoneal carcinomatosis with soft tissue mass anterior to the rectum and irregular lesion of the right lower quadrant mesentery with calcified anterior peritoneal nodule all unchanged from comparison. 4. Ill-defined lesion of the left hepatic lobe, better seen on comparison study. Electronically signed by: Artur Ortega M.D. 10/29/2018 10:18 AM Hospital Course (1) SBO (small bowel obstruction): Patient presented with increasing nausea and abdominal pain Neurosurgery consulted, managed with conservative treatment including bowel rest, IV fluids Eventually TPN was started Symptoms gradually resolved Initial plan is to continue TPN as an outpatient and follow-up with [facility] for surgical oncology evaluation However on October 29, 2018, patient developed increasing nausea and lower abdominal pain CT abdomen and pelvis done October 29, 2018 showing progression of small bowel obstruction, moderate to severe distention of stomach 1. Persistent mildly progressed small bowel distention with progressive gastric distention compatible with ongoing small bowel obstruction. 2. No pneumatosis, pneumoperitoneum or portal venous gas identified. Resolution of the previously described extraluminal air adjacent to the right diaphragmatic amanda. 3. Limited study without the use of contrast. Suspected peritoneal carcinom atosis with soft tissue mass anterior to the rectum and irregular lesion of the right lower quadrant mesentery with calcified anterior peritoneal nodule all unchanged from comparison. 4. Ill-defined lesion of the left hepatic lobe, better seen on comparison study. Discussed case with medical oncologist Dr. Montalvo, who is transferring patient to [facility] for tertiary level of care Discussed with attending general surgeon personnel training officer Dr. Barrios, recommend placement of NG tube to suction, recommend to transfer to tertiary level of care for possible surgical intervention continue NPO, TPN, Miralax Discussed case with patient at length He is agreeable to transfer to [facility] today Discussed with [facility] medical oncologist Dr. Gonzales He kindly accepted patient for transfer (2) Abdominal pain: Secondary to small bowel obstruction Pain management service consulted Status post temporary celiac plexus block which afforded relief of pain but seems to be wearing off now plan for permanent celiac plexus block on Tuesday10/31/18 On fentanyl patch, dose increased to 100 mcg /72 hrs Patient on as needed IV and p.o. Dilaudid (3) Protein calorie malnutrition: Inadequate PO intake due to bowel obstruction and underlying malignancy. Nutrition consulted. Patient maintained on TPN while admitted (4) Sinus tachycardia: Likely secondary to SBO /abdominal pain cont pain control , on TPN , IV fluids No evidence of pulmonary embolism on CTA of chest. 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 Follows locally with Dr. Josué Montalvo, recommend to transfer to [facility] for tertiary level of care at this time (7) Abnormal screening computed tomography (CT) of chest: CTA of chest performed to rule out pulmonary embolism. No evidence of PE. No pathologically enlarged axillary mediastinal or hilar lymph nodes were visualized. There was no evidence of thoracic aortic dilatation. There were no pulmonary artery filling defects to indicate acute pulmonary embolism. No pleural effusions are visualized. There are multiple ill-defined nodules within the superior segment of the left lower lobe with a tree-in-bud configuration. The findings are most consistent with an infectious process. Note is made of a hyperlucent left lower lobe, finding similar to a December [address] scan. This is not felt to be of acute clinical significance. --Will need further evaluation and management of ill defined nodules (8) DVT prophylaxis: SCD's heparin SC TID (9) Discharge planning issues: Transfer to [facility] today Total Time Total Time Spent Total Time Spent (In Minutes): 60 MINUTES Discharge Plan Discharge Items Patient Disposition: Transfer Acute Care Hospital Reason For Visit: SMALL BOWEL OBSTRUCTION Discharge Diagnosis: SMALL BOWEL OBSTRUCTION, COLON CANCER, S/P HEMICOLECTOMY, MESENTERIC MASSES Discharge Goals: Diagnostic testing and Therapeutic intervention Activity: As commented below Activity Comment: TOLERATED Non-emergency contact: Primary Care Provider and Oncologist Call non-emergency contact if: you have any medication questions, your symptoms worsen, your pain is not controlled, your pain is worsening, your pain is concerning for you and you have a fever Diet: See below Addtl Provider Instructions: PLEASE REFER TO ACCOMPANYING HOSPITAL DISCHARGE SUMMARY FOR FURTHER DETAILS. Prescriptions: New oxycodone-acetaminophen [Percocet] 5-325 mg Tablet 1 tab PO Q4H PRN (Reason: pain) 7 Days Qty: 10 RF: 0 fentanyl 100 mcg/hr Patch 72 Hour 100 mcg Transdermal Q3D@0900 7 Days Qty: 3 RF: 0 heparin, porcine (PF) 5,000 unit/0.5 mL Syringe 5,000 unit subcut Q8 7 Days Qty: 10.5 RF: 0 hydromorphone 2 mg Tablet 4 mg PO Q2H PRN (Reason: pain) 7 Days Qty: 7 RF: 0 hydromorphone 1 mg/mL Syringe 1 mg IV Q2H PRN (Reason: pain) 7 Days Qty: 10 RF: 0 scopolamine base [Transderm-Scop] 1 mg over 3 days Patch 3 Day 1.5 mg Transdermal Q72H 7 Days Qty: 3 RF: 0 Continued ondansetron 8 mg Tablet,Disintegrating 8 mg PO TID PRN (Reason: Nausea) RF: 0 multivitamin Tablet 1 tab PO DAILY RF: 0 digestive enzymes Capsule 1 cap PO DAILY RF: 0 prochlorperazine maleate 10 mg Tablet 10 mg PO Q6H PRN (Reason: Nausea) RF: 0 ascorbic acid (vitamin C) [Vitamin C] 500 mg Tablet 500 mg PO DAILY RF: 0 melatonin 10 mg Tablet 20 mg PO HS RF: 0 magnesium sulfate 100 mg Capsule 100 mg PO DAILY RF: 0 Discontinued morphine [MS Contin] 30 mg Tablet Extended Release 30 mg PO BID RF: 0 oxycodone-acetaminophen [Percocet] 5-325 mg Tablet 1 tab PO Q4H PRN (Reason: Pain) RF: 0 Stand-Alone Forms: [facility] Discharge Orders: Discharge Order (Routine); Ordered 10/29/18 Ordered By: Thanh Coffey Admission Data Admit Date/Time: 10/08/18 18:25 Attending Provider: Thanh Coffey Admit Provider: Pamela Prado Primary Care Provider: Natalie Payne Other Providers: Pamela Prado ; Roberto Hernandez ; Wisam Velasquez Service: Medical
[2018-10-29 12:59] VITALS: PULSE 119
[2018-10-29] MEDS ORDERED: CUSTOM CENTRAL PN IV SCH (20:00)
== END 2018-10-29 14:00 | disposition short-term general hospital (02) | DRG 375 ==
LOC: ED 14:06 → SUATTDRO 18:25 → 2E 18:25 → 4E 10-12 17:06